=== PATIENT | male | born 1945 | race Caucasian/White ===

== ENCOUNTER 2016-07-30 13:40 | Outpatient (CLI) | END 2016-07-30 13:41 | disposition home or self-care (01) ==

== ENCOUNTER 2016-08-19 | Outpatient (CLI) | payer MEDICARE, OTHER | END 2016-08-19 04:57 | disposition EMS.NT ==

== ENCOUNTER 2016-11-23 18:00 | Outpatient (CLI) | payer MEDICARE, OTHER | END 2016-11-23 18:01 | disposition critical access hospital (66) | DX: R06.00 Dyspnea, unspecified (principal); R05 Cough | CPT/HCPCS: A0425; A0427 ==

== ENCOUNTER 2016-11-23 18:12 | Inpatient (IN) | payer MEDICARE, OTHER ==
[2016-11-23] MEDS ORDERED: ALBUTEROL NEB 2.5 MG/3 ML INH STA (18:55)
[2016-11-23] MEDS ORDERED: ALBUTEROL NEB 2.5 MG/3 ML INH ONE (19:12)
[2016-11-23] MEDS ORDERED: cefTRIAXone 2 GM in SODIUM CHLORIDE 0.9% MINIBAG 100 ML IV STA (20:19)
[2016-11-23] MEDS ORDERED: AZITHROMYCIN INJ 500 MG in SODIUM CHLORIDE 0.9% 250 ML IV STA (20:19)
[2016-11-23] MEDS ORDERED: cefTRIAXone 2 GM VIAL ONE (20:22)
[2016-11-23] MEDS ORDERED: ONDANSETRON 4 MG/2 ML VIAL IVP PRN (20:48)
[2016-11-23] MEDS ORDERED: oxyCODONE 5 MG TABLET PO PRN ×2 (20:48)
[2016-11-23] MEDS ORDERED: SODIUM CHLORIDE FLUSH 0.9% 10 ML SYRINGE IVP PRN (20:48)
[2016-11-23] MEDS ORDERED: ZOLPIDEM 5 MG TABLET PO PRN (20:48)
[2016-11-23] MEDS ORDERED: ACETAMINOPHEN 325 MG TABLET PO PRN (20:48)
[2016-11-23] MEDS ORDERED: TORSEMIDE 20 MG TABLET PO SCH (21:00)
[2016-11-23] MEDS ORDERED: INSULIN GLARGINE 300 UNIT/3 ML PEN SUBQ SCH (21:00)
[2016-11-23] MEDS: SODIUM CHLORIDE 0.9% 1,000 ML IV SCH (22:11)
[2016-11-23] MEDS: methylPREDNISolone SUCCINATE 40 MG/ML VIAL IVP SCH (22:12)
[2016-11-23] MEDS: INSULIN ASPART 300 UNIT/3 ML PEN SUBQ SCH (22:13)
[2016-11-23] MEDS: SODIUM CHLORIDE FLUSH 0.9% 10 ML SYRINGE IVP SCH (22:15)
[2016-11-23] MEDS: IPRATROPIUM/ALBUTEROL 3 ML NEB INH SCH (22:22)
[2016-11-24] MEDS: methylPREDNISolone SUCCINATE 40 MG/ML VIAL IVP SCH ×3 (06:24→22:23)
[2016-11-24] MEDS: PANTOPRAZOLE 40 MG TABLET PO SCH (06:24)
[2016-11-24] MEDS: SODIUM CHLORIDE FLUSH 0.9% 10 ML SYRINGE IVP SCH ×3 (06:25→21:44)
[2016-11-24] MEDS: SODIUM CHLORIDE 0.9% 1,000 ML IV SCH ×2 (06:32→16:42)
[2016-11-24] MEDS: IPRATROPIUM/ALBUTEROL 3 ML NEB INH SCH ×4 (07:48→19:30)
[2016-11-24] MEDS: INSULIN ASPART 300 UNIT/3 ML PEN SUBQ SCH ×4 (08:37→21:51)
[2016-11-24] MEDS: CHOLECALCIFEROL 1,000 UNIT TABLET PO SCH (09:38)
[2016-11-24] MEDS: ENOXAPARIN 40 MG/0.4 ML SYRINGE SUBQ SCH (09:38)
[2016-11-24] MEDS: PARoxetine 10 MG TABLET PO SCH (09:38)
[2016-11-24] MEDS: MONTELUKAST 10 MG TABLET PO SCH (09:38)
[2016-11-24] MEDS: MULTIVITAMIN TABLET PO SCH (09:38)
[2016-11-24] MEDS: amLODIPine 5 MG TABLET PO SCH (09:38)
[2016-11-24] MEDS: POLYETHYLENE GLYCOL 3350 17 GM PACKET PO SCH (09:38)
[2016-11-24] MEDS: ASPIRIN EC 81 MG TABLET PO SCH (09:38)
[2016-11-24] MEDS: FINASTERIDE 5 MG TABLET PO SCH (09:38)
[2016-11-24] MEDS: FERROUS SULFATE 325 MG TABLET PO SCH (09:38)
[2016-11-24] MEDS: SACCHAROMYCES BOULARDII 250 MG CAPSULE PO SCH ×2 (09:38→16:42)
[2016-11-24] MEDS ORDERED: MIN OIL/DIMETHICON/COCONUT OIL 92 GM TUBE TOP ONE (14:06)
[2016-11-24] MEDS: MIN OIL/DIMETHICON/COCONUT OIL 92 GM TUBE TOP SCH ×2 (16:32→21:40)
[2016-11-24] MEDS: AZITHROMYCIN INJ 500 MG in SODIUM CHLORIDE 0.9% 250 ML IV SCH (20:12)
[2016-11-24] MEDS ORDERED: INSULIN GLARGINE 300 UNIT/3 ML PEN SUBQ SCH (21:00)
[2016-11-24] MEDS: cefTRIAXone 2 GM in SODIUM CHLORIDE 0.9% MINIBAG 100 ML IV SCH (21:39)
[2016-11-24] MEDS ORDERED: INSULIN ASPART 300 UNIT/3 ML PEN SUBQ SCH (22:00)
[2016-11-25] MEDS: SODIUM CHLORIDE 0.9% 1,000 ML IV SCH ×2 (04:03→14:34)
[2016-11-25] MEDS: methylPREDNISolone SUCCINATE 40 MG/ML VIAL IVP SCH ×3 (06:33→21:59)
[2016-11-25] MEDS: PANTOPRAZOLE 40 MG TABLET PO SCH (06:33)
[2016-11-25] MEDS: SODIUM CHLORIDE FLUSH 0.9% 10 ML SYRINGE IVP SCH ×3 (06:34→21:36)
[2016-11-25] MEDS: IPRATROPIUM/ALBUTEROL 3 ML NEB INH PRN ×4 (07:34→21:05)
[2016-11-25] MEDS: INSULIN ASPART 300 UNIT/3 ML PEN SUBQ SCH ×5 (08:22→22:10)
[2016-11-25] MEDS: ASPIRIN EC 81 MG TABLET PO SCH (10:27)
[2016-11-25] MEDS: POLYETHYLENE GLYCOL 3350 17 GM PACKET PO SCH (10:27)
[2016-11-25] MEDS: SACCHAROMYCES BOULARDII 250 MG CAPSULE PO SCH ×2 (10:27→17:06)
[2016-11-25] MEDS: PARoxetine 10 MG TABLET PO SCH (10:27)
[2016-11-25] MEDS: FERROUS SULFATE 325 MG TABLET PO SCH (10:33)
[2016-11-25] MEDS: CHOLECALCIFEROL 1,000 UNIT TABLET PO SCH (10:33)
[2016-11-25] MEDS: ENOXAPARIN 40 MG/0.4 ML SYRINGE SUBQ SCH (10:33)
[2016-11-25] MEDS: FINASTERIDE 5 MG TABLET PO SCH (10:33)
[2016-11-25] MEDS: amLODIPine 5 MG TABLET PO SCH (10:34)
[2016-11-25] MEDS: MONTELUKAST 10 MG TABLET PO SCH (10:34)
[2016-11-25] MEDS: MULTIVITAMIN TABLET PO SCH (10:36)
[2016-11-25] MEDS: MIN OIL/DIMETHICON/COCONUT OIL 92 GM TUBE TOP SCH ×2 (10:36→22:00)
[2016-11-25] MEDS: INSULIN GLARGINE 300 UNIT/3 ML PEN SUBQ SCH (17:04)
[2016-11-25] MEDS: AZITHROMYCIN INJ 500 MG in SODIUM CHLORIDE 0.9% 250 ML IV SCH (20:32)
[2016-11-25] MEDS: cefTRIAXone 2 GM in SODIUM CHLORIDE 0.9% MINIBAG 100 ML IV SCH (21:59)
[2016-11-26] MEDS: SODIUM CHLORIDE 0.9% 1,000 ML IV SCH ×3 (02:13→21:30)
[2016-11-26] MEDS: methylPREDNISolone SUCCINATE 40 MG/ML VIAL IVP SCH ×3 (06:18→21:22)
[2016-11-26] MEDS: PANTOPRAZOLE 40 MG TABLET PO SCH (06:18)
[2016-11-26] MEDS: SODIUM CHLORIDE FLUSH 0.9% 10 ML SYRINGE IVP SCH ×3 (06:21→20:10)
[2016-11-26] MEDS: IPRATROPIUM/ALBUTEROL 3 ML NEB INH PRN (07:15)
[2016-11-26] MEDS ORDERED: INSULIN ASPART 300 UNIT/3 ML PEN SUBQ SCH (08:00)
[2016-11-26] MEDS: INSULIN ASPART 300 UNIT/3 ML PEN SUBQ SCH ×7 (08:14→21:40)
[2016-11-26] MEDS: PARoxetine 10 MG TABLET PO SCH (09:03)
[2016-11-26] MEDS: MONTELUKAST 10 MG TABLET PO SCH (09:04)
[2016-11-26] MEDS: FINASTERIDE 5 MG TABLET PO SCH (09:04)
[2016-11-26] MEDS: MULTIVITAMIN TABLET PO SCH (09:04)
[2016-11-26] MEDS: FERROUS SULFATE 325 MG TABLET PO SCH (09:04)
[2016-11-26] MEDS: SACCHAROMYCES BOULARDII 250 MG CAPSULE PO SCH ×2 (09:04→17:32)
[2016-11-26] MEDS: amLODIPine 5 MG TABLET PO SCH (09:05)
[2016-11-26] MEDS: POLYETHYLENE GLYCOL 3350 17 GM PACKET PO SCH (09:05)
[2016-11-26] MEDS: ENOXAPARIN 40 MG/0.4 ML SYRINGE SUBQ SCH (09:05)
[2016-11-26] MEDS: ASPIRIN EC 81 MG TABLET PO SCH (09:05)
[2016-11-26] MEDS: MIN OIL/DIMETHICON/COCONUT OIL 92 GM TUBE TOP SCH ×2 (09:06→21:30)
[2016-11-26] MEDS: CHOLECALCIFEROL 1,000 UNIT TABLET PO SCH (09:07)
[2016-11-26] MEDS: AZITHROMYCIN INJ 500 MG in SODIUM CHLORIDE 0.9% 250 ML IV SCH (19:46)
[2016-11-26] MEDS: cefTRIAXone 2 GM in SODIUM CHLORIDE 0.9% MINIBAG 100 ML IV SCH (21:22)
[2016-11-26] MEDS: INSULIN GLARGINE 300 UNIT/3 ML PEN SUBQ SCH (21:39)
[2016-11-27] MEDS ORDERED: CARBOXYMETHYLCELLULOSE OPHTH DROPS EACHEYE PRN (04:12)
[2016-11-27] MEDS ORDERED: CARBOXYMETHYLCELLULOSE OPHTH DROPS ONE (04:14)
[2016-11-27] MEDS: SODIUM CHLORIDE FLUSH 0.9% 10 ML SYRINGE IVP SCH ×3 (05:35→22:08)
[2016-11-27] MEDS: methylPREDNISolone SUCCINATE 40 MG/ML VIAL IVP SCH ×3 (06:14→22:08)
[2016-11-27] MEDS: PANTOPRAZOLE 40 MG TABLET PO SCH (06:16)
[2016-11-27] MEDS: IPRATROPIUM/ALBUTEROL 3 ML NEB INH PRN ×2 (08:27→17:28)
[2016-11-27] MEDS: INSULIN ASPART 300 UNIT/3 ML PEN SUBQ SCH ×7 (08:32→21:13)
[2016-11-27] MEDS: POLYETHYLENE GLYCOL 3350 17 GM PACKET PO SCH (08:33)
[2016-11-27] MEDS: ENOXAPARIN 40 MG/0.4 ML SYRINGE SUBQ SCH (08:33)
[2016-11-27] MEDS: FINASTERIDE 5 MG TABLET PO SCH (08:34)
[2016-11-27] MEDS: MULTIVITAMIN TABLET PO SCH (08:34)
[2016-11-27] MEDS: amLODIPine 5 MG TABLET PO SCH (08:34)
[2016-11-27] MEDS: PARoxetine 10 MG TABLET PO SCH (08:34)
[2016-11-27] MEDS: MONTELUKAST 10 MG TABLET PO SCH (08:34)
[2016-11-27] MEDS: SACCHAROMYCES BOULARDII 250 MG CAPSULE PO SCH ×2 (08:34→16:43)
[2016-11-27] MEDS: CHOLECALCIFEROL 1,000 UNIT TABLET PO SCH (08:34)
[2016-11-27] MEDS: FERROUS SULFATE 325 MG TABLET PO SCH (08:34)
[2016-11-27] MEDS: ASPIRIN EC 81 MG TABLET PO SCH (08:34)
[2016-11-27] MEDS: SODIUM CHLORIDE 0.9% 1,000 ML IV SCH ×2 (08:44→17:16)
[2016-11-27] MEDS: MIN OIL/DIMETHICON/COCONUT OIL 92 GM TUBE TOP SCH ×2 (13:26→13:40)
[2016-11-27] MEDS: AZITHROMYCIN INJ 500 MG in SODIUM CHLORIDE 0.9% 250 ML IV SCH (19:55)
[2016-11-27] MEDS: cefTRIAXone 2 GM in SODIUM CHLORIDE 0.9% MINIBAG 100 ML IV SCH (21:02)
[2016-11-27] MEDS: INSULIN GLARGINE 300 UNIT/3 ML PEN SUBQ SCH (21:12)
[2016-11-28] MEDS: SODIUM CHLORIDE 0.9% 1,000 ML IV SCH (00:32)
[2016-11-28] MEDS ORDERED: AMPICILLIN 250 MG CAPSULE PO SCH (01:00)
[2016-11-28] MEDS: PANTOPRAZOLE 40 MG TABLET PO SCH (06:51)
[2016-11-28] MEDS: CLINDAMYCIN 150 MG CAPSULE PO SCH ×2 (06:51→11:58)
[2016-11-28] MEDS: SODIUM CHLORIDE FLUSH 0.9% 10 ML SYRINGE IVP SCH (06:54)
[2016-11-28] MEDS ORDERED: predniSONE 20 MG TABLET PO SCH (08:00)
[2016-11-28] MEDS: INSULIN ASPART 300 UNIT/3 ML PEN SUBQ SCH ×4 (08:16→11:59)
[2016-11-28] MEDS: ASPIRIN EC 81 MG TABLET PO SCH (08:17)
[2016-11-28] MEDS: MULTIVITAMIN TABLET PO SCH (08:17)
[2016-11-28] MEDS: ENOXAPARIN 40 MG/0.4 ML SYRINGE SUBQ SCH (08:17)
[2016-11-28] MEDS: FINASTERIDE 5 MG TABLET PO SCH (08:17)
[2016-11-28] MEDS: SACCHAROMYCES BOULARDII 250 MG CAPSULE PO SCH (08:17)
[2016-11-28] MEDS: PARoxetine 10 MG TABLET PO SCH (08:18)
[2016-11-28] MEDS: CHOLECALCIFEROL 1,000 UNIT TABLET PO SCH (08:18)
[2016-11-28] MEDS: FERROUS SULFATE 325 MG TABLET PO SCH (08:18)
[2016-11-28] MEDS: MONTELUKAST 10 MG TABLET PO SCH (08:18)
[2016-11-28] MEDS: POLYETHYLENE GLYCOL 3350 17 GM PACKET PO SCH (08:18)
[2016-11-28] MEDS: amLODIPine 5 MG TABLET PO SCH (08:18)
[2016-11-28] MEDS ORDERED: SENNA 8.6 MG TABLET PO ONE (08:30)
[2016-11-28] MEDS ORDERED: DOCUSATE SODIUM 250 MG CAPSULE PO ONE (08:30)
[2016-11-28] MEDS: MIN OIL/DIMETHICON/COCONUT OIL 92 GM TUBE TOP SCH (11:42)
== END 2016-11-28 14:45 | DRG 871 ==
DX: A40.8 Other streptococcal sepsis (principal); J18.9 Pneumonia, unspecified organism; E11.9 Type 2 diabetes mellitus without complications; J96.21 Acute and chronic respiratory failure with hypoxia; J44.0 Chronic obstructive pulmonary disease with (acute) lower respiratory infection; J44.1 Chronic obstructive pulmonary disease with (acute) exacerbation; E66.9 Obesity, unspecified; F03.90 Unspecified dementia, unspecified severity, without behavioral disturbance, psychotic disturbance, mood disturbance, and anxiety; Z68.42 Body mass index [BMI] 45.0-49.9, adult; I10 Essential (primary) hypertension; E11.22 Type 2 diabetes mellitus with diabetic chronic kidney disease; E66.01 Morbid (severe) obesity due to excess calories; G31.83 Neurocognitive disorder with Lewy bodies; F02.80 Dementia in other diseases classified elsewhere, unspecified severity, without behavioral disturbance, psychotic disturbance, mood disturbance, and anxiety; N18.3 Chronic kidney disease, stage 3 (moderate); E86.0 Dehydration; G47.33 Obstructive sleep apnea (adult) (pediatric); K02.9 Dental caries, unspecified; K05.10 Chronic gingivitis, plaque induced; I25.10 Atherosclerotic heart disease of native coronary artery without angina pectoris; K21.9 Gastro-esophageal reflux disease without esophagitis; F41.8 Other specified anxiety disorders; E78.5 Hyperlipidemia, unspecified; D50.9 Iron deficiency anemia, unspecified; I87.2 Venous insufficiency (chronic) (peripheral); Z91.19 Patient's noncompliance with other medical treatment and regimen; Z79.82 Long term (current) use of aspirin; Z79.4 Long term (current) use of insulin; Z87.891 Personal history of nicotine dependence

== ENCOUNTER 2017-03-15 13:29 | Outpatient (CLI) | payer MEDICARE, OTHER ==
[2017-03-15 19:21] LABS: HEMOGLOBIN A1C 0.58 g/dL
[2017-03-15 19:30] LABS: ALBUMIN/GLOBULIN RATIO 1.5 (1.0-2.2); BILIRUBIN,TOTAL 0.8 mg/dL (0.2-1.0); CALCIUM 9.7 mg/dL (8.5-10.3); CREATININE 1.8 mg/dL (0.6-1.2); TOTAL PROTEIN 7.4 g/dL (6.7-8.2)
== END 2017-03-15 13:30 | disposition home or self-care (01) ==
LOC: LAB.WCP 13:29
PROVIDERS: ATTEND Family Medicine
DX: E11.9 Type 2 diabetes mellitus without complications (principal); F03.90 Unspecified dementia, unspecified severity, without behavioral disturbance, psychotic disturbance, mood disturbance, and anxiety; J45.909 Unspecified asthma, uncomplicated
CPT/HCPCS: 36415; 80053; 83036

== ENCOUNTER 2017-03-27 11:57 | Outpatient (CLI) | payer MEDICARE, OTHER | END 2017-03-27 11:58 | disposition EMS.NT | LOC: EMS 11:57 | PROVIDERS: ATTEND Surgery | DX: M25.512 Pain in left shoulder (principal); W01.0XXA Fall on same level from slipping, tripping and stumbling without subsequent striking against object, initial encounter; Y92.009 Unspecified place in unspecified non-institutional (private) residence as the place of occurrence of the external cause ==

== ENCOUNTER 2017-09-20 08:52 | Outpatient (CLI) | payer MEDICARE, OTHER | END 2017-09-20 08:53 | disposition EMS.NT | LOC: EMS 08:52 | PROVIDERS: ATTEND Surgery | DX: Z03.89 Encounter for observation for other suspected diseases and conditions ruled out (principal); W18.39XA Other fall on same level, initial encounter; Y92.009 Unspecified place in unspecified non-institutional (private) residence as the place of occurrence of the external cause ==

== ENCOUNTER 2017-10-24 13:34 | Outpatient (CLI) | payer MEDICARE, OTHER | END 2017-10-24 13:35 | disposition EMS.NT | LOC: EMS 13:34 | PROVIDERS: ATTEND Surgery | DX: Z03.89 Encounter for observation for other suspected diseases and conditions ruled out (principal) ==

== ENCOUNTER 2018-04-01 21:51 | Outpatient (CLI) | payer MEDICARE, OTHER | END 2018-04-01 21:52 | disposition critical access hospital (66) | LOC: EMS 21:51 | PROVIDERS: ATTEND Surgery | DX: R06.02 Shortness of breath (principal) | CPT/HCPCS: A0425; A0427 ==

== ENCOUNTER 2018-04-01 22:06 | Inpatient (IN) | payer MEDICARE, OTHER ==
[2018-04-01] MEDS ORDERED: IPRATROPIUM/ALBUTEROL 3 ML NEB INH STA (22:14)
[2018-04-01] MEDS ORDERED: CEFEPIME 2 GM in SODIUM CHLORIDE 0.9% MINIBAG 100 ML IV STA (22:23)
[2018-04-01] MEDS ORDERED: SODIUM CHLORIDE 0.9% 1,000 ML IV ONE (22:23)
[2018-04-01 22:33] LABS: BASOPHILS % (AUTO) 0.2 %; EOSINOPHILS % (AUTO) 0.5 %; HGB - HEMOGLOBIN 11.8 g/dL (14.0-18.0); LYMPHOCYTES # (AUTO) 1.6 10^3/uL (1.5-3.5); MEAN CORPUSCULAR HEMOGLOBIN 30.7 pg (27.0-31.0); MEAN CORPUSCULAR HGB CONC 33.1 g/dL (32.0-36.0); MEAN CORPUSCULAR VOLUME 92.7 fL (80.0-94.0); MEAN PLATELET VOLUME 7.9 fL (7.4-11.4); MONOCYTES # (AUTO) 0.7 10^3/uL (0.0-1.0); MONOCYTES % (AUTO) 7.7 %; NEUTROPHILS # (AUTO) 6.7 10^3/uL (1.5-6.6); NEUTROPHILS % (AUTO) 73.6 %; PLT - PLATELET COUNT 217 10^3/uL (130-450); RED BLOOD COUNT 3.85 10^6/uL (4.70-6.10); RED CELL DISTRIBUTION WIDTH 14.4 % (12.0-15.0); WHITE BLOOD COUNT 9.1 x10^3/uL (4.8-10.8)
[2018-04-01] MEDS ORDERED: LORazepam 2 MG/ML VIAL IVP STA (22:33)
[2018-04-01 22:46] LABS: ALBUMIN 3.7 g/dL (3.2-5.5); ALBUMIN/GLOBULIN RATIO 1.1 (1.0-2.2); BILIRUBIN,TOTAL 0.5 mg/dL (0.2-1.0); CALCIUM 9.1 mg/dL (8.5-10.3); CREATININE 1.9 mg/dL (0.6-1.2); TOTAL PROTEIN 7.2 g/dL (6.7-8.2)
--- NOTE | 2018-04-01 23:25 | ED Physician Documentation ---
History of Present Illness - Stated complaint Stated Complaint: SOA - Chief complaint Chief Complaint: Resp - History obtained from History obtained from: Patient, Family - Additonal information Additional information: 72-year-old male was brought to the emergency department for increasing shortness of breath over the past several days. The patient has a history of COPD and his breathing has progressively worsened. The patient has been using his home treatments with minimal success. The patient had a DuoNeb with EMS and some improvement. No reports of fever, cough, chest pain or abdominal pain. The patient also has a history of recurrent cellulitis and the patient's reports increased redness and swelling of the right lower extremity. The majority of the history was obtained from the patient's . The patient's reports increased confusion as the shortness of breath has worsened. The patient has also been more agitated per the . Symptoms are described as severe. No specific triggering factor. Review of Systems Constitutional: reports: Chills, Fatigue Eyes: denies: Discharge Ears: denies: Ear pain Nose: denies: Congestion Throat: denies: Sore throat Cardiac: denies: Chest pain / pressure Respiratory: reports: Dyspnea, Cough, Wheezing GI: denies: Abdominal Pain : denies: Dysuria Skin: reports: Lesions Musculoskeletal: denies: Back pain Neurologic: reports: Altered mental status PD PAST MEDICAL HISTORY - Past Medical History Cardiovascular: Hypertension, Coronary artery disease Respiratory: Asthma, COPD, Shortness of breath, Sleep apnea Endocrine/Autoimmune: Type 2 diabetes : Benign prostate hypertrophy, Incontinence HEENT: None Psych: Depression, Anxiety, Claustrophobia Musculoskeletal: Osteoarthritis Derm: Psoriasis - Past Surgical History Past Surgical History: Yes General: Appendectomy, Hiatal hernia repair Ortho: Other - Present Medications Home Medications: Ambulatory Orders Medication Instructions Recorded Confirmed Aspirin [Aspirin EC] 81 mg PO DAILY 11/18/13 11/24/16 Cholecalciferol (Vitamin D3) 1,000 unit PO DAILY 11/18/13 11/24/16 [Vitamin D3] Ferrous Sulfate [Iron] 325 mg PO BID 11/18/13 11/24/16 Finasteride [Proscar] 5 mg PO DAILY 11/18/13 11/24/16 Montelukast Sodium [Singulair] 10 mg PO DAILY 11/18/13 11/24/16 Multivitamin [Multi-Vitamin Daily] 1 each PO DAILY 11/18/13 11/24/16 Omeprazole [PriLOSEC] 40 mg PO DAILY 11/18/13 11/24/16 Paroxetine HCl [Paxil] 20 mg PO DAILY 11/18/13 11/24/16 Torsemide [Demadex] 60 mg PO BID 11/18/13 11/24/16 glipiZIDE [Glucotrol] 5 mg PO 0730 11/18/13 11/24/16 amLODIPine [Norvasc] 5 mg PO DAILY 01/04/16 11/24/16 Donepezil HCl 5 mg PO DAILY 11/24/16 11/24/16 Fenofibrate 160 mg PO DAILY 11/24/16 11/24/16 Potassium Chloride 20 meq PO DAILY 11/24/16 11/24/16 Tamsulosin HCl 0.8 mg PO DAILY 11/24/16 11/24/16 Acetaminophen [Tylenol] 650 mg PO Q4HR PRN #0 tablet 11/28/16 Clindamycin [Cleocin] 300 mg PO Q6HR #36 capsule 11/28/16 Enoxaparin [Lovenox] 40 mg SUBQ DAILY syringe 11/28/16 Hydrocodone/Acetaminophen 1 each PO Q6H PRN #30 tablet 11/28/16 [Hydrocodon-Acetaminophen 5-325] Insulin Aspart [NovoLOG] 2 - 10 unit SUBQ 11/28/16 0800,1200,1700,2100 pen Insulin Glargine [Lantus Solostar] 16 unit SUBQ QPM pen 11/28/16 Ipratropium/Albuterol [Duoneb] 3 ml INH RTQID PRN #0 neb 11/28/16 Polyethylene Glycol 3350 [Miralax] 17 gm PO DAILY packet 11/28/16 Saccharomyces Boulardii [Florastor] 250 mg PO BID #60 capsule 11/28/16 predniSONE [Deltasone] 10 mg PO DAILYWM #1 tablet 11/28/16 - Allergies Allergies/Adverse Reactions: Allergies Allergy/AdvReac Type Severity Reaction Status Date / Time bacitracin Allergy Severe Unknown Verified 04/01/18 22:08 [From Neosporin ([id number])] bacitracin zinc * Allergy Severe Unknown Verified 04/01/18 22:08 [From Neosporin ([id number])] latex Allergy Severe Unknown Verified 04/01/18 22:08 lovastatin Allergy Severe Unknown Verified 04/01/18 22:08 neomycin sulfate * Allergy Severe Unknown Verified 04/01/18 22:08 [From Neosporin ([id number])] polymyxin B Allergy Severe Unknown Verified 04/01/18 22:08 [From Neosporin ([id number])] pravastatin sodium * Allergy Severe Unknown Verified 04/01/18 22:08 [From Pravachol] trazodone Allergy Unknown Verified 04/01/18 22:08 - Social History Does the pt smoke?: No Smoking Status: Never smoker Does the pt drink ETOH?: No Does the pt have substance abuse?: No - Immunizations Immunizations are current?: Yes - POLST Patient has POLST: Yes PD ED PE NORMAL - General General: Other (72-year-old male who appears to be dyspneic and appears acutely ill. The patient also appears significantly decompensated and chronically ill.) - HEENT HEENT: Atraumatic, PERRL, Other (Poor dental hygiene) - Cardiac Cardiac: Other (Tachycardia) - Respiratory Respiratory: Other (The patient has increased respiratory rate and poor aeration bilaterally) - Abdomen Abdomen: Soft, Non tender - Derm Derm: Other (The patient has significant erythematous changes and signs of cellulitis of the right lower extremity which extends up into the thigh. There is no crepitus or signs of abscess) - Extremities Extremities: No: No edema (The patient has edema of the right lower extremity with cellulitic changes) - Neuro Neuro: Other (The patient's alert, follows commands, there appears to be no gross focal neurologic changes. The patient is confused and agitated) - Psych Psych: Other (Agitated) Results - Vitals Vitals: Vital Signs - 24 hr 04/01/18 04/01/18 04/01/18 22:09 22:21 23:04 Temperature 36.9 C Heart Rate 90 114 H 115 H Respiratory 28 H 24 24 Rate Blood Pressure 105/91 H 136/109 H O2 Saturation 100 92 04/01/18 04/01/18 23:22 23:51 Temperature Heart Rate 132 H 133 H Respiratory Rate Blood Pressure O2 Saturation Oxygen O2 Source [With Activity] Room air O2 Source [Without Activity] Room air O2 Source BIPAP - Labs Labs: Laboratory Tests 04/01/18 04/01/18 04/01/18 22:24 22:24 22:24 WBC 9.1 RBC 3.85 L Hgb 11.8 L Hct 35.8 L MCV 92.7 MCH 30.7 MCHC 33.1 RDW 14.4 Plt Count 217 MPV 7.9 Neut # (Auto) 6.7 H Lymph # (Auto) 1.6 Gilliam # (Auto) 0.7 Eos # (Auto) 0.0 Baso # (Auto) 0.0 Absolute Nucleated RBC 0.00 Nucleated RBC % 0.0 Sodium 139 Potassium 3.4 L Chloride 98 L Carbon Dioxide 31 Anion Gap 10.0 BUN 46 H Creatinine 1.9 H Estimated GFR (MDRD) 35 L Glucose 190 H Lactic Acid Calcium 9.1 Total Bilirubin 0.5 AST 32 ALT 21 Alkaline Phosphatase 36 L Troponin I < 0.04 B-Natriuretic Peptide Total Protein 7.2 Albumin 3.7 Globulin 3.5 Albumin/Globulin Ratio 1.1 Lipase 45 04/01/18 04/01/18 22:24 22:24 WBC RBC Hgb Hct MCV MCH MCHC RDW Plt Count MPV Neut # (Auto) Lymph # (Auto) Gilliam # (Auto) Eos # (Auto) Baso # (Auto) Absolute Nucleated RBC Nucleated RBC % Sodium Potassium Chloride Carbon Dioxide Anion Gap BUN Creatinine Estimated GFR (MDRD) Glucose Lactic Acid 0.9 Calcium Total Bilirubin AST ALT Alkaline Phosphatase Troponin I B-Natriuretic Peptide 287 H Total Protein Albumin Globulin Albumin/Globulin Ratio Lipase - Rads (name of study) CXR Radiology: Final report received (Hypoventilatory single view chest with cardiomegaly but without definite acute process. ) PD MEDICAL DECISION MAKING - ED course ED course: The patient was started on BiPAP for his respiratory distress, the patient was treated with IV fluids and IV antibiotics for the lower leg infection. The patient will require admission to the hospital for ongoing management of his COPD exacerbation and acute cellulitis. The patient's kidney function is poor, and the patient is not stable at this time for a CT angiogram of his chest to rule out PE so a dose of Lovenox was given in the emergency department. The findings and plan were discussed with the patient and his . The patient's understands and agrees to the plan. The case was discussed with the hospitalist Dr. Shaffer Who accepts the patient onto her service - Sepsis Event Vital Signs: Vital Signs - 24 hr 04/01/18 04/01/18 04/01/18 22:09 22:21 23:04 Temperature 36.9 C Heart Rate 90 114 H 115 H Respiratory 28 H 24 24 Rate Blood Pressure 105/91 H 136/109 H O2 Saturation 100 92 04/01/18 04/01/18 23:22 23:51 Temperature Heart Rate 132 H 133 H Respiratory Rate Blood Pressure O2 Saturation Oxygen O2 Source [With Activity] Room air O2 Source [Without Activity] Room air O2 Source BIPAP Departure - Departure Disposition: [address] [facility] DC/Xfer Clinical Impression: Respiratory distress, COPD exacerbation, Confusion Cellulitis Qualifiers: Site of cellulitis: unspecified site Qualified Code(s): L03.90 - Cellulitis, unspecified Condition: Fair
[2018-04-01] MEDS ORDERED: METHYLPREDNISOLONE SUCCINATE IV STA (23:39)
[2018-04-01] MEDS ORDERED: SODIUM CHLORIDE 0.9% IV STA (23:39)
--- NOTE | 2018-04-01 23:40 | XRAY Report ---
Reason: sob Procedure Date: 04/01/2018 Accession Number: [id number] / [id number] Procedure: XR - Chest 1 View X-Ray CPT Code: 28209 FULL RESULT: EXAM: CHEST RADIOGRAPHY EXAM DATE: 04/01/2018 11:11 PM. CLINICAL HISTORY: Short of breath. COMPARISON: CHEST 2 VIEW PA/LAT 11/24/2016. TECHNIQUE: 1 view. FINDINGS: Lungs/Pleura: Low volumes with chronic right hemidiaphragm elevation. No definite pneumonia or edema. No gross pneumothorax or large effusion. Mediastinum: Mild cardiomegaly. No mediastinal shift. Other: None. IMPRESSION: Hypoventilatory single view chest with cardiomegaly but without definite acute process. RADIA
[2018-04-01] MEDS ORDERED: ENOXAPARIN 100 MG/ML SYRINGE SUBQ STA (23:50)
[2018-04-02] MEDS ORDERED: methylPREDNISolone SUCCINATE 125 MG/2 ML VIAL IVP STA (00:12)
[2018-04-02] MEDS ORDERED: PROCHLORPERAZINE 10 MG/2 ML VIAL IVP PRN (00:15)
[2018-04-02] MEDS ORDERED: ACETAMINOPHEN 325 MG TABLET PO PRN (00:15)
[2018-04-02] MEDS ORDERED: HYDROcod/ACETAM 5/325 MG TABLET PO PRN (00:27)
[2018-04-02] MEDS ORDERED: LIDOCAINE 2% URO-JET 5 ML SYRINGE UR STA (00:36)
[2018-04-02] MEDS ORDERED: LEVALBUTEROL 1.25 MG/3 ML NEB INH STA (00:43)
[2018-04-02] MEDS ORDERED: MORPHINE 10 MG/ML VIAL IVP ONE (00:51)
[2018-04-02] MEDS ORDERED: MORPHINE 10 MG/ML VIAL IVP PRN (00:52)
[2018-04-02] MEDS: SODIUM CHLORIDE FLUSH 0.9% 10 ML SYRINGE IVP SCH ×3 (01:55→17:02)
[2018-04-02] MEDS ORDERED: VANCOMYCIN 1 GM VIAL ONE ×2 (01:58→02:03)
[2018-04-02] MEDS ORDERED: VANCOMYCIN INJ 2 GM in SODIUM CHLORIDE 0.9% 500 ML IV SCH (02:00)
[2018-04-02] MEDS ORDERED: SODIUM CHLORIDE 0.9% 500 ML IV ONE (02:04)
[2018-04-02] MEDS: ACETAMINOPHEN 1,000 MG/100 ML 100 ML IV PRN (02:04)
[2018-04-02] MEDS: MORPHINE 10 MG/ML VIAL IVP PRN ×2 (02:05→20:28)
[2018-04-02 02:26] LABS: BILIRUBIN,URINE NEGATIVE (NEGATIVE); GLUCOSE, URINE (UA) NEGATIVE (NEGATIVE); KETONES,URINE (UA) NEGATIVE (NEGATIVE); LEUKOCYTE ESTERASE, URINE NEGATIVE (NEGATIVE); NITRITE,URINE NEGATIVE (NEGATIVE); OCCULT BLOOD,URINE TRACE-INTA (NEGATIVE); PH,URINE 5.5 PH (5.0-7.5); PROTEIN,URINE NEGATIVE (NEGATIVE); UROBILINOGEN,URINE 0.2 (NORMAL) E.U./dL (NORMAL)
[2018-04-02 02:30] LABS: BACTERIA,URINE None Seen /HPF (None Seen); CLARITY,URINE CLEAR (CLEAR); SQUAMOUS EPITHELIAL CELL,UR NONE SEEN (<= Few)
[2018-04-02 02:31] LABS: RBC,URINE 0-5 /HPF (0-5)
[2018-04-02 02:34] LABS: EPITHELIAL CELLS,UR None Seen /HPF (<= Few)
[2018-04-02] MEDS: ceFAZolin 1 GM in SODIUM CHLORIDE 0.9% MINIBAG 100 ML IV SCH ×3 (03:00→18:02)
[2018-04-02 03:13] LABS: PT - PROTHROMBIN TIME 11.7 secs (9.9-12.6)
--- NOTE | 2018-04-02 03:33 | HISTORY & PHYSICAL EXAMINATION ---
DATE OF SERVICE: 04/02/2018 Physician: Josselyn Shaffer MD HISTORY OF PRESENT ILLNESS: This is a 72-year-old, white male with a history of obesity, diabetes on insulin, hypertension, sleep apnea that has been untreated since diagnosed about 2 years ago, COPD with prior exacerbations with pneumonitis requiring ICU hospitalization, recurrent cellulitis of the legs, venous stasis changes, dementia. The patient presents with a 2-3 day history of worsening confusion, not being cooperative with taking his meals and pills, which the administers to him since he lives mostly in a recliner chair, two days of being more short of breath, so the brought him to the emergency room. He was noted to be confused, moving all extremities, tachypneic with respiratory rate of 32 and desaturating under 90%, and he received supplemental oxygen, requiring BiPAP started in the ER. He also received IV steroids and nebulizers several times. The patient still sounds tight with poor air movement, and is being admitted for respiratory distress, as well as cellulitis. PAST MEDICAL HISTORY: Diabetes on insulin, hypertension, morbid obesity, sleep apnea that is untreated as he does not tolerate CPAP, prior leg cellulitis, COPD , dementia. ALLERGIES 1. BACITRACIN. 2. NEOSPORIN. 3. LOVASTATIN. 4. LATEX. 5. NEOMYCIN. 6. POLYMYXIN 7. PRAVASTATIN. 8. TRAZODONE. MEDICATIONS AT HOME 1. Prednisone 10 mg daily. 2. Glucotrol 5 mg daily. 3. Amlodipine 5 mg daily. 4. Demadex 60 mg b.i.d. 5. Tamsulosin 0.8 mg daily. 6. Florastor 250 mg b.i.d. 7. Oral clindamycin. 8. Potassium chloride 20 mEq daily. 9. MiraLax 17 grams daily. 10. Paxil 20 mg daily. 11. Prilosec 40 mg daily. 12. Multivitamin daily. 13. Singulair 10 mg daily. 14. DuoNeb q.i.d. p.r.n. wheezing. 15. Lantus insulin 16 units every evening and sliding scale. 16. Aspart insulin on a high scale. 17. Tylenol With Codeine p.r.n. 18. Proscar 5 mg daily. 19. Iron 325 mg b.i.d. 20. Fenofibrate 160 mg daily. 21. Donepezil 5 mg daily. 22. Vitamin D3 1000 units daily. 23. Baby aspirin daily. 24. Tylenol p.r.n. pain. FAMILY HISTORY: Heart disease, both parents of complications of this. SOCIAL HISTORY: The patient lives with his who does most of his care. The patient can walk with a walker to the bathroom and rarely comes to the dining room table for meals, he mostly eats in his recliner. He sleeps in the recliner, needing the head of bed elevated. He no longer drives. He is an ex- smoker, quit many years ago, drinks no alcohol, uses no illicit drugs. REVIEW OF SYSTEMS: The patient has had recent tremor versus shaking chills, according to the , starting yesterday and today. The patient's normal language is sentences and normal speech, but goes off on tangents or makes no sense. In the last 2 days, he has spoken gibberish. There have been no sick exposures or recent travel. The does fingerstick glucoses daily and they run approximately 118-140. This morning it was 154. A comprehensive review of systems was performed and the pertinent positives are listed, the rest are negative. PHYSICAL EXAMINATION GENERAL: Obese, white male on BiPAP. He is lethargic and appears to be sleeping, but he has a swallowing motion of his lips and occasionally is speaking in gibberish. He is opening his eyes to his only. He is intermittently shaking his upper extremities, as if he has shaking chill. He is morbidly obese. VITAL SIGNS: Blood pressure 136/109, pulse of 110 in sinus rhythm, temperature is 39.6, respiratory rate 32. HEENT: Reveals the above buccal motion. Eyes are closed. Oral mucosa appears moist. He is on a BiPAP. NECK: Obese. CHEST: Diminished air movement, but no wheezes or rales are heard. HEART: Heart sounds are distant. No audible murmurs. ABDOMEN: Obese, distended. I cannot rule out ascites or organomegaly. EXTREMITIES: there is 4+ edema to the hips. The left anterior locke has venous stasis changes. The right locke has redness and warmth from the ankle to below the right knee and, in the center of this, there is an open wound without purulence. His sacrum shows a large area that is blackened, but no open wounds over the sacrum. NEUROLOGIC: As above. LABORATORIES: Sodium 139, potassium 3.4, BUN 46, creatinine 1.9, (his baseline creatinine is 1.8), glucose 190. Lactic acid normal at 0.9. AST and ALT are normal. Troponin not detectable. BNP 287. Lipase normal. White blood count 9.1 with a left shift, hemoglobin 11.8, platelet count normal at 217. Urinalysis was obtained, but not done yet. INR was obtained, but not done yet. EKG: Sinus tachycardia at a rate of 118 with right IVCD. Chest x-ray: shows hypoventilation and cardiomegaly and no acute process. IMPRESSION/DIAGNOSES 1. Cellulitis of the right lower extremity in a diabetic. 2. Chronic obstructive pulmonary disease exacerbation with desaturations and wheezing. 3. Diabetes with fairly good control. 4. Altered mental status, which is likely from the acute infection. 6. Morbid obesity with near immobility at home. 7. Chronic kidney disease with anasarca. 8. Hypokalemia. PLAN Admit the patient to the ICU. Continue with BiPAP support and supplemental oxygen. Start nebulizer treatments around the clock and p.r.n. and IV steroids , especially to give him stress doses since he is on prednisone daily. Follow his chest x-ray daily while in the ICU. Obtain leg wound cultures and blood cultures. Start IV antibiotics, will use vancomycin and cefepime ,for diabetic cellulitis. Follow his CBC daily. N.p.o. diet currently while he is on BiPAP and gentle IV hydration for calories. Start fingersticks in an n.p.o. patient, and hypoglycemia protocol and sliding scale insulin coverage for high glucoses. Continue with his medications for BPH, dementia, hypertension and leg edema. Follow his electrolytes, BUN and creatinine daily. Cycle troponins. Obtain an Echo to evaluate LV and RV contractility and PA pressure, given the anasarca. Obtain a [facility] consult. Deep venous thrombosis prophylaxis: Lovenox. CODE STATUS: FULL CODE. This was confirmed with the , who has a POLST that we will scan into [employer]. ATTESTATION: The patient is expected to be discharged or transferred to another facility within 96 hours: Yes. TD: 04/02/2018 02:47 [facility]
[2018-04-02] MEDS: DEXTROSE 5%-0.45% NACL 1,000 ML IV SCH ×2 (04:10→21:18)
[2018-04-02 04:57] LABS: BASOPHILS % (AUTO) 0.1 %; HGB - HEMOGLOBIN 10.6 g/dL (14.0-18.0); LYMPHOCYTES # (AUTO) 0.2 10^3/uL (1.5-3.5); MEAN CORPUSCULAR HGB CONC 33.9 g/dL (32.0-36.0); MEAN CORPUSCULAR VOLUME 91.4 fL (80.0-94.0); MEAN PLATELET VOLUME 7.9 fL (7.4-11.4); MONOCYTES # (AUTO) 0.2 10^3/uL (0.0-1.0); MONOCYTES % (AUTO) 2.2 %; NEUTROPHILS # (AUTO) 9.7 10^3/uL (1.5-6.6); NEUTROPHILS % (AUTO) 95.7 %; PLT - PLATELET COUNT 193 10^3/uL (130-450); RED BLOOD COUNT 3.42 10^6/uL (4.70-6.10); RED CELL DISTRIBUTION WIDTH 14.5 % (12.0-15.0); WHITE BLOOD COUNT 10.2 x10^3/uL (4.8-10.8)
[2018-04-02 05:06] LABS: CALCIUM 8.8 mg/dL (8.5-10.3); CREATININE 1.9 mg/dL (0.6-1.2)
[2018-04-02 05:13] LABS: HB2 TOTAL 10.8 g/dL; HEMOGLOBIN A1C 0.39 g/dL; HEMOGLOBIN A1C % 5.5 % (4.6-6.2)
[2018-04-02] MEDS: methylPREDNISolone SUCCINATE 40 MG/ML VIAL IVP SCH ×3 (06:00→21:20)
[2018-04-02] MEDS: INSULIN REGULAR HUMAN 100 UNIT/1 ML 10 ML MDV SUBQ SCH ×3 (06:20→18:01)
[2018-04-02] MEDS ORDERED: IPRATROPIUM/ALBUTEROL 3 ML NEB INH SCH (07:00)
[2018-04-02 07:25] LABS: ABG PCO2 56 mmHg (34-45)
[2018-04-02 07:26] LABS: ABG HCO3 29.2 mmol/L (22.0-26.0)
[2018-04-02 07:27] LABS: ABG BASE EXCESS 2.4 mmol/L (-2.0-3.0); ABG TCO2 30.9 MMOL/L (21.0-29.0)
[2018-04-02 07:28] LABS: ABG PH 7.34 (7.35-7.45)
[2018-04-02 07:31] LABS: ABG OXYGEN SATURATION 77 % (94-98); ABG PO2 44 mmHg (80-100)
[2018-04-02] MEDS: LEVALBUTEROL 1.25 MG/3 ML NEB INH SCH ×4 (07:57→19:45)
[2018-04-02] MEDS ORDERED: VANCOMYCIN PER PHARMACY 100 GM in SODIUM CHLORIDE 0.9% 250 ML IV SCH (08:00)
[2018-04-02] MEDS ORDERED: POTASSIUM PHOSPHATE 15 MMOL in SODIUM CHLORIDE 0.9% 250 ML IV ONE (08:00)
[2018-04-02] MEDS ORDERED: PERFLUTREN LIPID MICROSPHERES 1.65 MG/1.5 ML VIAL IVP ONE (08:11)
[2018-04-02] MEDS: glipiZIDE 5 MG TABLET PO SCH (08:18)
[2018-04-02] MEDS: BUMETANIDE 1 MG/4 ML VIAL IVP SCH ×2 (08:20→14:29)
[2018-04-02] MEDS: FAMOTIDINE 20 MG TABLET PO SCH (08:59)
[2018-04-02] MEDS: FENOFIBRATE 48 MG TABLET PO SCH (08:59)
[2018-04-02] MEDS: ASPIRIN EC 81 MG TABLET PO SCH (08:59)
[2018-04-02] MEDS: ENOXAPARIN 40 MG/0.4 ML SYRINGE SUBQ SCH ×2 (08:59→21:19)
[2018-04-02] MEDS: CHOLECALCIFEROL 1,000 UNIT TABLET PO SCH (08:59)
[2018-04-02] MEDS: DONEPEZIL 5 MG TABLET PO SCH (08:59)
[2018-04-02] MEDS: FERROUS SULFATE 325 MG TABLET PO SCH ×2 (08:59→21:19)
[2018-04-02] MEDS: FINASTERIDE 5 MG TABLET PO SCH (09:00)
[2018-04-02] MEDS: SACCHAROMYCES BOULARDII 250 MG CAPSULE PO SCH ×2 (09:00→21:20)
[2018-04-02] MEDS: POLYETHYLENE GLYCOL 3350 17 GM PACKET PO SCH (09:00)
[2018-04-02] MEDS: TAMSULOSIN 0.4 MG CAPSULE PO SCH (09:00)
[2018-04-02] MEDS: MONTELUKAST 10 MG TABLET PO SCH (09:00)
[2018-04-02] MEDS: MULTIVITAMIN TABLET PO SCH (09:00)
[2018-04-02] MEDS: PARoxetine 10 MG TABLET PO SCH (09:00)
[2018-04-02] MEDS ORDERED: TORSEMIDE 20 MG TABLET PO SCH (09:00)
[2018-04-02] MEDS: POTASSIUM CHLORIDE 20 MEQ TABLET PO SCH (09:00)
[2018-04-02] MEDS: NYSTATIN POWDER 15 GM TOP SCH ×2 (12:10→21:20)
--- NOTE | 2018-04-02 12:18 | XRAY Report ---
Reason: SOB Procedure Date: 04/02/2018 Accession Number: [id number] / [id number] Procedure: XR - Chest 1 View X-Ray CPT Code: 23653 FULL RESULT: EXAM: CHEST RADIOGRAPHY EXAM DATE: 04/02/2018 09:15 AM. CLINICAL HISTORY: SOB. COMPARISON: 04/01/2018. TECHNIQUE: 1 view. FINDINGS: Lungs/Pleura: Further diminished lung volumes with right hemidiaphragm elevation redemonstrated. Increased vascular and interstitial prominence may be compounded by the hypoinflation but could represent mild infiltrates or edema. Left lung base not optimally visualized. No gross pleural effusion. Mediastinum: Stable mild cardiac enlargement. Other: None. IMPRESSION: 1. Substantial hypoinflation. 2. New vascular and interstitial prominence may be accentuated by the hypoinflation but infiltrate or edema is not excluded. 3. Stable cardiac enlargement. RADIA
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
[2018-04-02] MEDS: IPRATROPIUM 0.2 MG/ML NEB INH SCH (20:24)
[2018-04-02] MEDS: INSULIN GLARGINE 300 UNIT/3 ML PEN SUBQ SCH (21:19)
[2018-04-03] MEDS: INSULIN REGULAR HUMAN 100 UNIT/1 ML 10 ML MDV SUBQ SCH ×2 (00:54→06:23)
[2018-04-03] MEDS: SODIUM CHLORIDE FLUSH 0.9% 10 ML SYRINGE IVP SCH ×4 (00:55→23:05)
[2018-04-03] MEDS ORDERED: VANCOMYCIN INJ 2 GM in SODIUM CHLORIDE 0.9% 500 ML IV SCH (02:00)
[2018-04-03] MEDS: ceFAZolin 1 GM in SODIUM CHLORIDE 0.9% MINIBAG 100 ML IV SCH ×2 (02:14→10:47)
[2018-04-03] MEDS: MORPHINE 10 MG/ML VIAL IVP PRN ×6 (03:19→23:05)
[2018-04-03] MEDS: IPRATROPIUM/ALBUTEROL 3 ML NEB INH PRN ×2 (03:22→22:41)
[2018-04-03 05:06] LABS: BASOPHILS % (AUTO) 0.1 %; HGB - HEMOGLOBIN 11.2 g/dL (14.0-18.0); LYMPHOCYTES # (AUTO) 0.5 10^3/uL (1.5-3.5); LYMPHOCYTES % (AUTO) 4.9 %; MEAN CORPUSCULAR HEMOGLOBIN 30.8 pg (27.0-31.0); MEAN CORPUSCULAR HGB CONC 33.3 g/dL (32.0-36.0); MEAN CORPUSCULAR VOLUME 92.3 fL (80.0-94.0); MEAN PLATELET VOLUME 7.9 fL (7.4-11.4); MONOCYTES # (AUTO) 0.4 10^3/uL (0.0-1.0); MONOCYTES % (AUTO) 4.6 %; NEUTROPHILS # (AUTO) 8.6 10^3/uL (1.5-6.6); NEUTROPHILS % (AUTO) 90.4 %; PLT - PLATELET COUNT 233 10^3/uL (130-450); RED BLOOD COUNT 3.63 10^6/uL (4.70-6.10); RED CELL DISTRIBUTION WIDTH 14.6 % (12.0-15.0); WHITE BLOOD COUNT 9.5 x10^3/uL (4.8-10.8)
[2018-04-03 05:15] LABS: CREATININE 1.7 mg/dL (0.6-1.2)
[2018-04-03] MEDS: ACETAMINOPHEN 1,000 MG/100 ML 100 ML IV PRN ×2 (06:25→15:18)
[2018-04-03] MEDS: methylPREDNISolone SUCCINATE 40 MG/ML VIAL IVP SCH ×3 (06:25→21:44)
[2018-04-03] MEDS: IPRATROPIUM 0.2 MG/ML NEB INH SCH ×4 (07:01→18:00)
[2018-04-03] MEDS: LEVALBUTEROL 1.25 MG/3 ML NEB INH SCH ×4 (07:01→18:00)
[2018-04-03] MEDS: glipiZIDE 5 MG TABLET PO SCH (08:31)
[2018-04-03] MEDS: BUMETANIDE 1 MG/4 ML VIAL IVP SCH ×2 (08:38→14:36)
[2018-04-03] MEDS: ENOXAPARIN 40 MG/0.4 ML SYRINGE SUBQ SCH ×2 (08:46→21:42)
[2018-04-03] MEDS: MULTIVITAMIN TABLET PO SCH (10:49)
[2018-04-03] MEDS: PARoxetine 10 MG TABLET PO SCH (10:49)
[2018-04-03] MEDS: POLYETHYLENE GLYCOL 3350 17 GM PACKET PO SCH (10:49)
[2018-04-03] MEDS: FERROUS SULFATE 325 MG TABLET PO SCH ×2 (10:50→21:42)
[2018-04-03] MEDS: CHOLECALCIFEROL 1,000 UNIT TABLET PO SCH (10:50)
[2018-04-03] MEDS: MONTELUKAST 10 MG TABLET PO SCH (10:50)
[2018-04-03] MEDS: FENOFIBRATE 48 MG TABLET PO SCH (10:50)
[2018-04-03] MEDS: ASPIRIN EC 81 MG TABLET PO SCH (10:50)
[2018-04-03] MEDS: DONEPEZIL 5 MG TABLET PO SCH (10:50)
[2018-04-03] MEDS: FAMOTIDINE 20 MG TABLET PO SCH (10:50)
[2018-04-03] MEDS: FINASTERIDE 5 MG TABLET PO SCH (10:50)
[2018-04-03] MEDS: TAMSULOSIN 0.4 MG CAPSULE PO SCH (10:51)
[2018-04-03] MEDS: SACCHAROMYCES BOULARDII 250 MG CAPSULE PO SCH ×2 (10:51→21:42)
[2018-04-03] MEDS: POTASSIUM CHLORIDE 20 MEQ TABLET PO SCH (10:51)
--- NOTE | 2018-04-03 11:38 | PROVIDER PROGRESS NOTE ---
Subjective - Prog Note Date Prog Note Date: 04/03/18 Prog Note Time: 11:37 - Subjective Subjective: He does listen to his nurse. He follows her with his eyes she walks in the room. Sometimes he responds to her when she is speaking to him. Sometimes he does not. His response for the most part is nonsensical. He babbles short sentences about things that are not there. He has a furrowed brow quite a bit of the time. He does tell her that he is a concerned worrier. The last time he had a fever was at 04:00 yesterday morning. Between then and now he is remained afebrile. Vital signs stable. Oxygen requirement stable. Current Medications - Current Medications Current Medications: Active Medications Hydrocodone Bitart/Acetaminophen ([place] 5/325) 1 tab PO Q6H PRN PRN Reason: PAIN Albuterol/Ipratropium (Duoneb) 3 ml INH Q4H PRN PRN Reason: Wheezing Last Admin: 04/03/18 03:22 Dose: 3 ml Aspirin (Ecotrin) 81 mg PO DAILY [facility] Last Admin: 04/03/18 10:50 Dose: Not Given Bumetanide (Bumex Inj) 2 mg IVP 0800,1400 [facility] Last Admin: 04/03/18 08:38 Dose: 2 mg Cholecalciferol (Vitamin D3) 1,000 unit PO DAILY [facility] Last Admin: 04/03/18 10:50 Dose: Not Given Donepezil HCl (Aricept) 5 mg PO DAILY [facility] Last Admin: 04/03/18 10:50 Dose: Not Given Enoxaparin Sodium (Lovenox) 40 mg SUBQ BID [facility] Last Admin: 04/03/18 08:46 Dose: 40 mg Famotidine (Pepcid) 20 mg PO DAILY [facility] Last Admin: 04/03/18 10:50 Dose: Not Given Fenofibrate (Tricor) 144 mg PO DAILY [facility] Last Admin: 04/03/18 10:50 Dose: Not Given Ferrous Sulfate (Feosol) 325 mg PO BID [facility] Last Admin: 04/03/18 10:50 Dose: Not Given Finasteride (Proscar) 5 mg PO DAILY [facility] Last Admin: 04/03/18 10:50 Dose: Not Given Glipizide (Glucotrol) 5 mg PO 0730 [facility] Last Admin: 04/03/18 08:31 Dose: Not Given Acetaminophen (Ofirmev) 100 mls @ 400 mls/hr IV Q6HR PRN PRN Reason: Pain or Fever > 38C (100.4F) Last Infusion: 04/03/18 06:51 Dose: Infused Cefazolin Sodium 1 gm/ Sodium (Chloride) 100 mls @ 200 mls/hr IV Q8H [facility] Last Infusion: 04/03/18 11:20 Dose: Infused Dextrose/Sodium Chloride (D5.45ns) 1,000 mls @ 60 mls/hr IV .[id number] [facility] Last Admin: 04/02/18 21:18 Dose: 60 mls/hr Insulin Aspart (Novolog) 2 - 10 unit SUBQ 0800,1200,1700,2100 FLORIN PRN Reason: Protocol Last Admin: 04/03/18 12:23 Dose: 2 unit Insulin Glargine (Lantus Solostar) 16 unit SUBQ QPM [facility] Last Admin: 04/02/18 21:19 Dose: 16 unit Ipratropium Willard (Atrovent) 0.5 mg INH RTQ4H [facility] Last Admin: 04/03/18 11:23 Dose: 0.5 mg Levalbuterol HCl (Xopenex) 1.25 mg INH QID [facility] Last Admin: 04/03/18 11:23 Dose: 1.25 mg Methylprednisolone (Solu-Medrol (40mg Vial)) 40 mg IVP Q8HR [facility] Last Admin: 04/03/18 06:25 Dose: 40 mg Montelukast Sodium (Singulair) 10 mg PO DAILY [facility] Last Admin: 04/03/18 10:50 Dose: Not Given Morphine Sulfate (Morphine) 4 mg IVP Q2H PRN PRN Reason: Dyspnea Last Admin: 04/03/18 06:50 Dose: 4 mg Multivitamins (Theragran) 1 tab PO DAILY [facility] Last Admin: 04/03/18 10:49 Dose: Not Given Nystatin (Nystop) 1 applic TOP BID [facility] Last Admin: 04/03/18 13:05 Dose: 1 applic Paroxetine HCl (Paxil) 20 mg PO DAILY [facility] Last Admin: 04/03/18 10:49 Dose: Not Given Polyethylene Glycol (Miralax) 17 gm PO DAILY [facility] Last Admin: 04/03/18 10:49 Dose: Not Given Potassium Chloride (K-Dur) 20 meq PO DAILY [facility] Last Admin: 04/03/18 10:51 Dose: Not Given Prochlorperazine Edisylate (Compazine Inj) 10 mg IVP Q6HR PRN PRN Reason: Nausea / Vomiting Saccharomyces Boulardii (Florastor) 250 mg PO BID [facility] Last Admin: 04/03/18 10:51 Dose: Not Given Sodium Chloride (Normal Saline Flush 0.9%) 10 ml IVP 0100,0900,1700 [facility] Last Admin: 04/03/18 09:00 Dose: 10 ml Sodium Chloride (Normal Saline Flush 0.9%) 10 ml IVP PRN PRN PRN Reason: NEEDED PER PROVIDER ORDERS Tamsulosin HCl (Flomax) 0.8 mg PO DAILY [facility] Last Admin: 04/03/18 10:51 Dose: Not Given Aspirin [Aspirin EC] 81 mg PO DAILY 11/18/13 Cholecalciferol (Vitamin D3) [Vitamin D3] 1,000 unit PO DAILY 11/18/13 Ferrous Sulfate [Iron] 325 mg PO BID 11/18/13 Finasteride [Proscar] 5 mg PO DAILY 11/18/13 Montelukast Sodium [Singulair] 10 mg PO DAILY 11/18/13 Multivitamin [Multi-Vitamin Daily] 1 each PO DAILY 11/18/13 Omeprazole [PriLOSEC] 40 mg PO DAILY 11/18/13 Paroxetine HCl [Paxil] 20 mg PO DAILY 11/18/13 Torsemide [Demadex] 60 mg PO BID 11/18/13 glipiZIDE [Glucotrol] 5 mg PO 0730 11/18/13 amLODIPine [Norvasc] 5 mg PO DAILY 01/04/16 Donepezil HCl 5 mg PO DAILY 11/24/16 Fenofibrate 160 mg PO DAILY 11/24/16 Potassium Chloride 20 meq PO DAILY 11/24/16 Tamsulosin HCl 0.8 mg PO DAILY 11/24/16 Albuterol 2.5 mg INH Q4H PRN 04/02/18 Albuterol Sulfate [Proair Hfa Inhaler] 2 puffs INH Q4H PRN 04/02/18 Ascorbic Acid [Vitamin C] 500 mg PO DAILY 04/02/18 Docusate Sodium 250Mg Capsule [Colace 250Mg Capsule] 250 mg PO BID 04/02/18 Insulin Aspart [Novolog Flexpen] 1 - 5 unit SUBQ ACHS 04/02/18 Insulin Glargine [Lantus Solostar] 6 units SUBQ QPM 04/02/18 Objective - Vital Signs/Intake & Output Reviewed Vital Signs: Yes Vital Signs: Vital Signs Pulse Pulse Resp BP Pulse Ox 04/03/18 11:25 98 18 04/03/18 11:00 76 12 147/80 H 100 04/03/18 10:00 64 14 138/83 H 99 04/03/18 09:00 80 18 116/73 94 04/03/18 08:00 80 17 121/89 H 100 Intake & Output: Intake & Output 03/31/18 04/01/18 04/02/18 04/03/18 23:59 23:59 23:59 23:59 Intake Total 1655 200 Output Total 2835 1205 Balance -1180 -1005 - Objective General Appearance: positive: Mild distress (He is face will get worried. He scratches his nose. Cannot really tell if it is with pain or any discomfort when we ask him directly.), Lethargic Neck: negative: Stiff neck, Carotid bruit Respiratory: positive: Chest non-tender, Rhonchi. negative: Wheezes, Rales Cardiovascular: positive: Regular rate & rhythm. negative: Gallop/S4, Friction rub Abdomen: positive: Nml bowel sounds, No distention, Other (Large abdominal pannus with obesity) Skin: positive: Warm, Dry, Pallor Extremities: positive: Pedal edema Neurologic/Psychiatric: positive: Disoriented to person, Disoriented to place, Disoriented to time, Weakness - Lab Results Fish Bones: 04/03/18 04:35 04/03/18 04:35 Other Labs: Lab Results x24hrs 04/03/18 04/03/18 Range/Units 04:35 04:35 WBC 9.5 (4.8-10.8) x10^3/uL RBC 3.63 L (4.70-6.10) 10^6/uL Hgb 11.2 L (14.0-18.0) g/dL Hct 33.5 L (42.0-52.0) % MCV 92.3 (80.0-94.0) fL MCH 30.8 (27.0-31.0) pg MCHC 33.3 (32.0-36.0) g/dL RDW 14.6 (12.0-15.0) % Plt Count 233 (130-450) 10^3/uL MPV 7.9 (7.4-11.4) fL Neut # (Auto) 8.6 H (1.5-6.6) 10^3/uL Lymph # (Auto) 0.5 L (1.5-3.5) 10^3/uL [place] # (Auto) 0.4 (0.0-1.0) 10^3/uL Eos # (Auto) 0.0 (0.0-0.7) 10^3/uL Baso # (Auto) 0.0 (0.0-0.1) 10^3/uL Absolute Nucleated RBC 0.00 x10^3/uL Nucleated RBC % 0.0 /100WBC Sodium 145 (135-145) mmol/L Potassium 3.9 (3.5-5.0) mmol/L Chloride 106 (101-111) mmol/L Carbon Dioxide 31 (21-32) mmol/L Anion Gap 8.0 (6-13) BUN 43 H (6-20) mg/dL Creatinine 1.7 H (0.6-1.2) mg/dL Estimated GFR (MDRD) 40 L (>89) Glucose 170 H (70-100) mg/dL Calcium 9.0 (8.5-10.3) mg/dL Assessment/Plan - Problem List (1) Encephalopathy, metabolic Impression: Due to infection. Source of infection appears to be the dense cellulitis of his legs. The cellulitis is due to skin breakdown from venous stasis dermatitis. Plan: Continue to treat the infection and continue to hydrate him Appears to be improving somewhat and that he is speaking more sentences today than yesterday (2) Cellulitis of both lower extremities Impression: Presents as weakness, gradual inability to ambulate in a patient who is already immobile in a lift chair for the most part. On examination he had a fever to 39.6 once he was transferred from the emergency room. White cell count has been normal. Blood cultures show gram-positive bacilli in 2 bottles. Negative for staph, strep, enterococcus, Listeria. Wound culture is positive for staph aureus. There is also a gram-negative growth with ID and sensitivities to follow. Urine culture has no growth. Plan: He was initially on vancomycin and Ancef. Pharmacy felt that vancomycin was just double coverage in a patient who has no history of MRSA. As that she is only on Ancef. Ancef day #3 We will broaden coverage to multi-organism treatment with gram positives and gram negatives in view of the skin culture and gram-positive bacilli on blood culture Change to Unasyn (3) Controlled type 2 diabetes mellitus, with long-term current use of insulin Impression: he is on glipizide plus sliding scale insulin Plus Lantus. He has not been getting the glipizide because he has been asleep. He is also on steroids and I would expect his glucose to be elevated. Glucose yesterday was consistently above 200 between 215 and 251. He started dropping in the late evening to 187. Today he has been between 152 and 160. We will continue to monitor. A sulfonylurea with reduced renal function can have prolonged effect. I will stop that. He is on D5 0.45 normal saline. A1c is 5.5%. Qualifiers: Diabetes mellitus complication status: with kidney complications Diabetes mellitus complication detail: with chronic kidney disease Chronic kidney disease stage: stage 3 (moderate) Qualified Code(s): E11.22 - Type 2 diabetes mellitus with diabetic chronic kidney disease; N18.3 - Chronic kidney disease, stage 3 (moderate); Z79.4 - FPC (current) use of insulin (4) Acute worsening of stage 3 chronic kidney disease Impression: Currently responding to therapy. BUN started at 46 and his 43 today. Creatinine started at 1.9 and he is 1.7 today. Plan continue hydration with D5 0.45. (5) COPD exacerbation Impression: He is on nebulizers and IV steroids. No wheezing on today's exam. Continue same treatment (6) Hypokalemia Impression: Resolved after supplementation yesterday (7) Lewy body dementia Impression: Refer to advanced care planning done on admission day April 02 Qualifiers: Dementia behavioral disturbance: without behavioral disturbance Qualified Code(s): G31.83 - Dementia with Lewy bodies; F02.80 - Dementia in other diseases classified elsewhere without behavioral disturbance; F02.80 - Dementia in other diseases classified elsewhere without behavioral disturbance; F02.80 - Dementia in other diseases classified elsewhere without behavioral disturbance
[2018-04-03] MEDS: INSULIN ASPART 300 UNIT/3 ML PEN SUBQ SCH ×3 (12:23→21:42)
--- NOTE | 2018-04-03 12:51 | XRAY Report ---
Reason: SOB Procedure Date: 04/03/2018 Accession Number: [id number] / [id number] Procedure: XR - Chest 1 View X-Ray CPT Code: 31558 FULL RESULT: EXAM: CHEST RADIOGRAPHY EXAM DATE: 04/03/2018 08:59 AM. CLINICAL HISTORY: SOB. COMPARISON: 04/02/2018. TECHNIQUE: 1 view. FINDINGS: Lungs/Pleura: Hypoventilation. No pneumothorax or focal consolidation. The left costophrenic angle is obscured, stable. Mediastinum: Cardiomegaly, stable. Other: None. IMPRESSION: Stable cardiomegaly and pulmonary edema versus hypoventilation. RADIA
[2018-04-03] MEDS: NYSTATIN POWDER 15 GM TOP SCH ×2 (13:05→21:42)
[2018-04-03] MEDS: AMPICILLIN/SULBACTAM 1.5 GM in SODIUM CHLORIDE 0.9% MINIBAG 100 ML IV SCH ×3 (14:33→23:05)
[2018-04-03] MEDS: DEXTROSE 5%-0.45% NACL 1,000 ML IV SCH (15:05)
[2018-04-03] MEDS: INSULIN GLARGINE 300 UNIT/3 ML PEN SUBQ SCH (21:43)
[2018-04-04] MEDS ORDERED: HALOPERIDOL 5 MG/ML VIAL IVP SCH (01:09)
[2018-04-04 06:02] LABS: HGB - HEMOGLOBIN 10.6 g/dL (14.0-18.0); LYMPHOCYTES # (AUTO) 0.5 10^3/uL (1.5-3.5); LYMPHOCYTES % (AUTO) 6.1 %; MEAN CORPUSCULAR HEMOGLOBIN 30.7 pg (27.0-31.0); MEAN CORPUSCULAR HGB CONC 33.4 g/dL (32.0-36.0); MEAN CORPUSCULAR VOLUME 92.1 fL (80.0-94.0); MEAN PLATELET VOLUME 7.7 fL (7.4-11.4); MONOCYTES # (AUTO) 0.4 10^3/uL (0.0-1.0); MONOCYTES % (AUTO) 4.8 %; NEUTROPHILS # (AUTO) 7.2 10^3/uL (1.5-6.6); NEUTROPHILS % (AUTO) 89.1 %; PLT - PLATELET COUNT 229 10^3/uL (130-450); RED BLOOD COUNT 3.47 10^6/uL (4.70-6.10); RED CELL DISTRIBUTION WIDTH 14.6 % (12.0-15.0); WHITE BLOOD COUNT 8.1 x10^3/uL (4.8-10.8)
[2018-04-04] MEDS: AMPICILLIN/SULBACTAM 1.5 GM in SODIUM CHLORIDE 0.9% MINIBAG 100 ML IV SCH ×3 (06:06→19:33)
[2018-04-04] MEDS: methylPREDNISolone SUCCINATE 40 MG/ML VIAL IVP SCH ×3 (06:06→21:07)
[2018-04-04 06:14] LABS: CALCIUM 9.1 mg/dL (8.5-10.3); CREATININE 1.6 mg/dL (0.6-1.2)
[2018-04-04] MEDS: LEVALBUTEROL 1.25 MG/3 ML NEB INH SCH ×4 (07:31→18:30)
[2018-04-04] MEDS: IPRATROPIUM 0.2 MG/ML NEB INH SCH ×4 (07:32→18:30)
[2018-04-04] MEDS: INSULIN ASPART 300 UNIT/3 ML PEN SUBQ SCH ×4 (08:19→21:10)
[2018-04-04] MEDS: SODIUM CHLORIDE FLUSH 0.9% 10 ML SYRINGE IVP SCH ×2 (08:19→17:26)
[2018-04-04] MEDS: FINASTERIDE 5 MG TABLET PO SCH (08:56)
[2018-04-04] MEDS: BUMETANIDE 1 MG/4 ML VIAL IVP SCH ×2 (09:39→15:07)
[2018-04-04] MEDS: POLYETHYLENE GLYCOL 3350 17 GM PACKET PO SCH (09:39)
[2018-04-04] MEDS: ENOXAPARIN 40 MG/0.4 ML SYRINGE SUBQ SCH ×2 (09:40→21:08)
[2018-04-04] MEDS: FENOFIBRATE 48 MG TABLET PO SCH (09:40)
[2018-04-04] MEDS: ASPIRIN EC 81 MG TABLET PO SCH (10:18)
[2018-04-04] MEDS: CHOLECALCIFEROL 1,000 UNIT TABLET PO SCH (10:18)
[2018-04-04] MEDS: MULTIVITAMIN TABLET PO SCH (10:19)
[2018-04-04] MEDS: SACCHAROMYCES BOULARDII 250 MG CAPSULE PO SCH ×2 (10:19→21:08)
[2018-04-04] MEDS: FERROUS SULFATE 325 MG TABLET PO SCH ×2 (10:19→21:08)
[2018-04-04] MEDS: NYSTATIN POWDER 15 GM TOP SCH ×2 (10:19→21:14)
[2018-04-04] MEDS: POTASSIUM CHLORIDE 20 MEQ TABLET PO SCH (10:19)
[2018-04-04] MEDS: FAMOTIDINE 20 MG TABLET PO SCH (10:19)
[2018-04-04] MEDS: MONTELUKAST 10 MG TABLET PO SCH (10:20)
[2018-04-04] MEDS: PARoxetine 10 MG TABLET PO SCH (10:20)
[2018-04-04] MEDS: TAMSULOSIN 0.4 MG CAPSULE PO SCH (10:20)
[2018-04-04] MEDS: DONEPEZIL 5 MG TABLET PO SCH (10:32)
[2018-04-04] MEDS: DEXTROSE 5%-0.45% NACL 1,000 ML IV SCH ×2 (10:44→10:48)
[2018-04-04] MEDS: SODIUM CHLORIDE FLUSH 0.9% 10 ML SYRINGE IVP PRN ×3 (10:46→21:08)
[2018-04-04] MEDS: IPRATROPIUM/ALBUTEROL 3 ML NEB INH PRN (11:12)
[2018-04-04] MEDS: MORPHINE 10 MG/ML VIAL IVP PRN (11:40)
[2018-04-04] MEDS ORDERED: risperiDONE 1 MG TABLET PO SCH (14:00)
--- NOTE | 2018-04-04 15:47 | PROVIDER PROGRESS NOTE ---
Subjective - Prog Note Date Prog Note Date: 04/04/18 Prog Note Time: 15:45 - Subjective Subjective: He is not any condition to tell us if he is doing well or not. He does occasionally speak to the nurses. Occasionally does make a lucid or, due to. But not for the most part. Last night he became very agitated. Needed Haldol. Slept most of the evening and morning after that. There have been no abrupt changes in vital signs. Ongoing treatment is unchanged. Minimal improvement with regards to mental status but his acute kidney failure, COPD, and cellulitis is slowly improving. Current Medications - Current Medications Current Medications: Active Medications Hydrocodone Bitart/Acetaminophen ([place] 5/325) 1 tab PO Q6H PRN PRN Reason: PAIN Albuterol/Ipratropium (Duoneb) 3 ml INH Q4H PRN PRN Reason: Wheezing Last Admin: 04/04/18 11:12 Dose: 3 ml Aspirin (Ecotrin) 81 mg PO DAILY [facility] Last Admin: 04/04/18 10:18 Dose: Not Given Bumetanide (Bumex Inj) 2 mg IVP 0800,1400 [facility] Last Admin: 04/04/18 15:07 Dose: 2 mg Cholecalciferol (Vitamin D3) 1,000 unit PO DAILY [facility] Last Admin: 04/04/18 10:18 Dose: Not Given Donepezil HCl (Aricept) 5 mg PO DAILY [facility] Last Admin: 04/04/18 10:32 Dose: 5 mg Enoxaparin Sodium (Lovenox) 40 mg SUBQ BID [facility] Last Admin: 04/04/18 09:40 Dose: 40 mg Famotidine (Pepcid) 20 mg PO DAILY [facility] Last Admin: 04/04/18 10:19 Dose: Not Given Fenofibrate (Tricor) 144 mg PO DAILY [facility] Last Admin: 04/04/18 09:40 Dose: 144 mg Ferrous Sulfate (Feosol) 325 mg PO BID [facility] Last Admin: 04/04/18 10:19 Dose: Not Given Finasteride (Proscar) 5 mg PO DAILY [facility] Last Admin: 04/04/18 08:56 Dose: 5 mg Acetaminophen (Ofirmev) 100 mls @ 400 mls/hr IV Q6HR PRN PRN Reason: Pain or Fever > 38C (100.4F) Last Infusion: 04/03/18 16:00 Dose: Infused Ampicillin Sodium/Sulbactam (Sodium 1.5 gm/ Sodium Chloride) 100 mls @ 200 mls/ hr IV Q6HR [facility] Last Infusion: 04/04/18 13:28 Dose: Infused Insulin Aspart (Novolog) 2 - 10 unit SUBQ 0800,1200,1700,2100 FLORIN PRN Reason: Protocol Last Admin: 04/04/18 12:37 Dose: 2 unit Insulin Glargine (Lantus Solostar) 16 unit SUBQ QPM [facility] Last Admin: 04/03/18 21:43 Dose: 16 unit Ipratropium [place] (Atrovent) 0.5 mg INH RTQ4H [facility] Last Admin: 04/04/18 14:44 Dose: 0.5 mg Levalbuterol HCl (Xopenex) 1.25 mg INH QID [facility] Last Admin: 04/04/18 14:44 Dose: 1.25 mg Methylprednisolone (Solu-Medrol (40mg Vial)) 40 mg IVP Q8HR [facility] Last Admin: 04/04/18 15:07 Dose: 40 mg Montelukast Sodium (Singulair) 10 mg PO DAILY [facility] Last Admin: 04/04/18 10:20 Dose: Not Given Morphine Sulfate (Morphine) 4 mg IVP Q2H PRN PRN Reason: Dyspnea Last Admin: 04/04/18 11:40 Dose: 4 mg Multivitamins (Theragran) 1 tab PO DAILY [facility] Last Admin: 04/04/18 10:19 Dose: Not Given Nystatin (Nystop) 1 applic TOP BID [facility] Last Admin: 04/04/18 10:19 Dose: 1 applic Paroxetine HCl (Paxil) 20 mg PO DAILY [facility] Last Admin: 04/04/18 10:20 Dose: 20 mg Polyethylene Glycol (Miralax) 17 gm PO DAILY [facility] Last Admin: 04/04/18 09:39 Dose: 17 gm Potassium Chloride (K-Dur) 20 meq PO DAILY [facility] Last Admin: 04/04/18 10:19 Dose: Not Given Prochlorperazine Edisylate (Compazine Inj) 10 mg IVP Q6HR PRN PRN Reason: Nausea / Vomiting Risperidone (Risperdal) 1 mg PO QPM [facility] Saccharomyces Boulardii (Florastor) 250 mg PO BID [facility] Last Admin: 04/04/18 10:19 Dose: Not Given Sodium Chloride (Normal Saline Flush 0.9%) 10 ml IVP 0100,0900,1700 [facility] Last Admin: 04/04/18 08:19 Dose: 10 ml Sodium Chloride (Normal Saline Flush 0.9%) 10 ml IVP PRN PRN PRN Reason: NEEDED PER PROVIDER ORDERS Last Admin: 04/04/18 15:16 Dose: 30 ml Tamsulosin HCl (Flomax) 0.8 mg PO DAILY [facility] Last Admin: 04/04/18 10:20 Dose: Not Given Aspirin [Aspirin EC] 81 mg PO DAILY 11/18/13 Cholecalciferol (Vitamin D3) [Vitamin D3] 1,000 unit PO DAILY 11/18/13 Ferrous Sulfate [Iron] 325 mg PO BID 11/18/13 Finasteride [Proscar] 5 mg PO DAILY 11/18/13 Montelukast Sodium [Singulair] 10 mg PO DAILY 11/18/13 Multivitamin [Multi-Vitamin Daily] 1 each PO DAILY 11/18/13 Omeprazole [PriLOSEC] 40 mg PO DAILY 11/18/13 Paroxetine HCl [Paxil] 20 mg PO DAILY 11/18/13 Torsemide [Demadex] 60 mg PO BID 11/18/13 glipiZIDE [Glucotrol] 5 mg PO 0730 11/18/13 amLODIPine [Norvasc] 5 mg PO DAILY 01/04/16 Donepezil HCl 5 mg PO DAILY 11/24/16 Fenofibrate 160 mg PO DAILY 11/24/16 Potassium Chloride 20 meq PO DAILY 11/24/16 Tamsulosin HCl 0.8 mg PO DAILY 11/24/16 Albuterol 2.5 mg INH Q4H PRN 04/02/18 Albuterol Sulfate [Proair Hfa Inhaler] 2 puffs INH Q4H PRN 04/02/18 Ascorbic Acid [Vitamin C] 500 mg PO DAILY 04/02/18 Docusate Sodium 250Mg Capsule [Colace 250Mg Capsule] 250 mg PO BID 04/02/18 Insulin Aspart [Novolog Flexpen] 1 - 5 unit SUBQ ACHS 04/02/18 Insulin Glargine [Lantus Solostar] 6 units SUBQ QPM 04/02/18 Objective - Vital Signs/Intake & Output Reviewed Vital Signs: Yes Vital Signs: Vital Signs Temp Pulse Resp BP Pulse Ox 04/04/18 15:00 89 12 146/96 H 95 04/04/18 14:23 99 14 156/87 H 04/04/18 13:00 92 14 161/92 H 92 04/04/18 12:26 92 16 87 L 04/04/18 12:00 98.5 C H 82 11 L 154/85 H 92 04/04/18 11:52 102 H 22 147/80 H 91 L Intake & Output: Intake & Output 04/01/18 04/02/18 04/03/18 04/04/18 23:59 23:59 23:59 23:59 Intake Total 2155 2790 2824 Output Total 2835 2500 1920 Balance -680 290 904 - Lab Results Fish Bones: 04/04/18 05:32 04/04/18 05:32 Other Labs: Lab Results x24hrs 04/04/18 04/04/18 Range/Units 05:32 05:32 WBC 8.1 (4.8-10.8) x10^3/uL RBC 3.47 L (4.70-6.10) 10^6/uL Hgb 10.6 L (14.0-18.0) g/dL Hct 31.9 L (42.0-52.0) % MCV 92.1 (80.0-94.0) fL MCH 30.7 (27.0-31.0) pg MCHC 33.4 (32.0-36.0) g/dL RDW 14.6 (12.0-15.0) % Plt Count 229 (130-450) 10^3/uL MPV 7.7 (7.4-11.4) fL Neut # (Auto) 7.2 H (1.5-6.6) 10^3/uL Lymph # (Auto) 0.5 L (1.5-3.5) 10^3/uL [place] # (Auto) 0.4 (0.0-1.0) 10^3/uL Eos # (Auto) 0.0 (0.0-0.7) 10^3/uL Baso # (Auto) 0.0 (0.0-0.1) 10^3/uL Absolute Nucleated RBC 0.01 x10^3/uL Nucleated RBC % 0.1 /100WBC Sodium 143 (135-145) mmol/L Potassium 4.2 (3.5-5.0) mmol/L Chloride 105 (101-111) mmol/L Carbon Dioxide 31 (21-32) mmol/L Anion Gap 7.0 (6-13) BUN 50 H (6-20) mg/dL Creatinine 1.6 H (0.6-1.2) mg/dL Estimated GFR (MDRD) 42 L (>89) Glucose 169 H (70-100) mg/dL Calcium 9.1 (8.5-10.3) mg/dL Assessment/Plan - Problem List (1) Encephalopathy, metabolic Impression: Still a problem. Not at baseline. Due to infection. Source of infection appears to be the dense cellulitis of his legs. The cellulitis is due to skin breakdown from venous stasis dermatitis. Plan: Continue to treat the infection and continue to hydrate him Appears to be improving somewhat and that he is speaking more sentences but he required antipsychotic meds last night Start risperdal for nightly dose. have PT start Eval. to see if he may qualify for SNF for rehab. (2) Cellulitis of both lower extremities Impression: Presents as weakness, gradual inability to ambulate in a patient who is already immobile in a lift chair for the most part. On examination he had a fever to 39.6 once he was transferred from the emergency room. White cell count has been normal. Blood cultures show gram-positive bacilli in 2 bottles. Negative for staph, strep, enterococcus, Listeria. Wound culture is positive for staph aureus. There is also a gram-negative growth with ID and sensitivities to follow. Urine culture has no growth. Plan: He was initially on vancomycin and Ancef. Pharmacy felt that vancomycin was just double coverage in a patient who has no history of MRSA. As that he is only on Ancef. s/p Ancef day #3 I broadened coverage to multi-organism treatment with gram positives and gram negatives in view of the skin culture and gram-positive bacilli on blood culture Changed to Unasyn Day #2 today Will probably need to go to SNF for wound care until healed. Plan is for 2-3 more days here then transfer. doesn't like [facility]. May need to go to [facility]. (3) Controlled type 2 diabetes mellitus, with long-term current use of insulin Impression: he is on glipizide plus sliding scale insulin Plus Lantus. He has not been getting the glipizide because he has been asleep. He is also on steroids and I would expect his glucose to be elevated. Glucose 160, 170, 162, 146 in last few hours. We will continue to monitor. A sulfonylurea with reduced renal function can have prolonged effect. I stopped that. He was on D5 0.45 normal saline. A1c is 5.5%. I have stopped D5 and hep locked IV for now. Qualifiers: Diabetes mellitus complication status: with kidney complications Diabetes mellitus complication detail: with chronic kidney disease Chronic kidney disease stage: stage 3 (moderate) Qualified Code(s): E11.22 - Type 2 diabetes mellitus with diabetic chronic kidney disease; N18.3 - Chronic kidney disease, stage 3 (moderate); Z79.4 - [facility] (current) use of insulin (4) Acute worsening of stage 3 chronic kidney disease Impression: Currently responding to therapy. BUN started at 46 and his 43 today. Creatinine started at 1.9>1.7 >1.6 now Continue to monitor. Use NS if needs more fluids. (5) COPD exacerbation Impression: He is on nebulizers and IV steroids. No wheezing on today's exam. Continue same treatment (6) Hypokalemia Impression: Resolved after supplementation (7) Lewy body dementia Impression: Refer to advanced care planning done on admission day April 02. Start Respirdal tonight. Qualifiers: Dementia behavioral disturbance: without behavioral disturbance Qualified Code(s): G31.83 - Dementia with Lewy bodies; F02.80 - Dementia in other diseases classified elsewhere without behavioral disturbance; F02.80 - Dementia in other diseases classified elsewhere without behavioral disturbance; F02.80 - Dementia in other diseases classified elsewhere without behavioral disturbance
--- NOTE | 2018-04-04 19:10 | CONSULTATION NOTE ---
Palliative Care Consultation - Referral Referring Provider: Valentine Portillo MD Time of Visit: [id number] Referral setting: Hospitalized patient Referral Reason: Lewy Body Dementia/Cellulitis/Goals of Care - Information Sources Records reviewed: RN notes reviewed, Previous records reviewed History/Review of Systems obtained from: Family ( Jessie present for visit) Exam limitations: Clinical condition (patient able to verbalize a few answers / request but nonsensical) - History of Present Illness Brief History of Present Illness: This is a 72-year-old gentleman who was admitted on 04/02 with increasing confusion, worsening swelling and cellulitis, and what finally led her to call 911 was increased shortness of breath. He had had a fall earlier in the week, but has had frequent falls and has recovered, but this time with the breathlessness she felt more concerned, and his care was becoming more difficult to manage from baseline. Patient does have known underlying diabetes, sleep apnea untreated is unable to tolerate CPAP, morbid obesity, hypertension, COPD, history of pneumonia and COPD exacerbations, and recurrent cellulitis of his legs attributed to venous stasis and lower extremity edema. He has been hospitalized in the past with cellulitis, including a transfer to [facility] secondary to deterioration of his wounds and severe infection. Patient does have a diagnosis of Lewy body dementia, he does have hallucinations these Visual, reports he had worsened over the last 1-2 weeks. He has had worsening paranoia, has in the past had various hallucinations have been more disturbing. She reports they have been mostly friendly with this last year. He does have fluctuating levels of clarity, as well as ability to communicate. He has been on donepezil 10 mg, and recently trialed on some carbidopa levodopa 25/100 mg half tab in the a.m. with titration schedule, to attempt to do address his tremors. He does present with hand tremors right greater than left.He has been mostly confused since admission, with an episode of increasing agitation needing help her at all last night. Is able to answer some simple questions at the time of my exam, and to communicate the need to use the bedpan. At home patient has been actually functional, able to stand for cleaning him tony-care, as well as ambulate into the bathroom. He does so sleep in the recliner, with very little pressure relief during the night. He does have a lift chair. Palliative care referral to explore goals of care, provide anticipatory guidance. Medical/Surgical History - Past Medical History Cardiovascular: reports: Congestive heart failure (diasotolic), Hypertension, Coronary artery disease Respiratory: reports: Asthma, COPD, Shortness of breath, Sleep apnea Neuro: Dementia (see's neurologist; has almaey body), Tremors (recently started on trial of carbidopa/levidopa 1/2 25/100 mg; off currently) Endocrine/Autoimmune: reports: Type 2 diabetes : reports: Benign prostate hypertrophy, Incontinence HEENT: reports: None Psych: reports: Depression, Anxiety, Claustrophobia Musculoskeletal: reports: Osteoarthritis Derm: reports: Psoriasis MRSA Hx?: No - Past Surgical History General: reports: Appendectomy, Hiatal hernia repair Ortho: reports: Other Social History - Living Situation Living arrangement: At home Living Situation: With spouse/s.o. Support System: Patient has been compromised for the last 5-6 years, they have been together 25 years. Been before, he does have one son whom she describes as quite anxious, she has 2 children and 2 stepchildren from previous marriages. None of these are able to provide physical support but are supportive to her as far as emotionally. Has been the primary caregiver, she does have paid caregiver do afternoons a week, she does demonstrate symptoms of caregiver fatigue, and is concerned given his current level of functioning about being able to meet his care needs at home. Family History - Family History Family History: Mother: , Father: Medications/Allergies - Medications Active Medication List: Active Medications Hydrocodone Bitart/Acetaminophen ([place] 5/325) 1 tab PO Q6H PRN PRN Reason: PAIN Albuterol/Ipratropium (Duoneb) 3 ml INH Q4H PRN PRN Reason: Wheezing Last Admin: 04/04/18 11:12 Dose: 3 ml Aspirin (Ecotrin) 81 mg PO DAILY [facility] Last Admin: 04/04/18 10:18 Dose: Not Given Bumetanide (Bumex Inj) 2 mg IVP 0800,1400 [facility] Last Admin: 04/04/18 15:07 Dose: 2 mg Cholecalciferol (Vitamin D3) 1,000 unit PO DAILY [facility] Last Admin: 04/04/18 10:18 Dose: Not Given Donepezil HCl (Aricept) 5 mg PO DAILY [facility] Last Admin: 04/04/18 10:32 Dose: 5 mg Enoxaparin Sodium (Lovenox) 40 mg SUBQ BID [facility] Last Admin: 04/04/18 09:40 Dose: 40 mg Famotidine (Pepcid) 20 mg PO DAILY [facility] Last Admin: 04/04/18 10:19 Dose: Not Given Fenofibrate (Tricor) 144 mg PO DAILY [facility] Last Admin: 04/04/18 09:40 Dose: 144 mg Ferrous Sulfate (Feosol) 325 mg PO BID [facility] Last Admin: 04/04/18 10:19 Dose: Not Given Finasteride (Proscar) 5 mg PO DAILY [facility] Last Admin: 04/04/18 08:56 Dose: 5 mg Acetaminophen (Ofirmev) 100 mls @ 400 mls/hr IV Q6HR PRN PRN Reason: Pain or Fever > 38C (100.4F) Last Infusion: 04/03/18 16:00 Dose: Infused Ampicillin Sodium/Sulbactam (Sodium 1.5 gm/ Sodium Chloride) 100 mls @ 200 mls/ hr IV Q6HR [facility] Last Infusion: 04/04/18 13:28 Dose: Infused Insulin Aspart (Novolog) 2 - 10 unit SUBQ 0800,1200,1700,2100 [facility] PRN Reason: Protocol Last Admin: 04/04/18 17:26 Dose: 2 unit Insulin Glargine (Lantus Solostar) 16 unit SUBQ QPM [facility] Last Admin: 04/03/18 21:43 Dose: 16 unit Ipratropium [place] (Atrovent) 0.5 mg INH RTQ4H [facility] Last Admin: 04/04/18 18:30 Dose: 0.5 mg Levalbuterol HCl (Xopenex) 1.25 mg INH QID [facility] Last Admin: 04/04/18 18:30 Dose: 1.25 mg Methylprednisolone (Solu-Medrol (40mg Vial)) 40 mg IVP Q8HR [facility] Last Admin: 04/04/18 15:07 Dose: 40 mg Montelukast Sodium (Singulair) 10 mg PO DAILY [facility] Last Admin: 04/04/18 10:20 Dose: Not Given Morphine Sulfate (Morphine) 4 mg IVP Q2H PRN PRN Reason: Dyspnea Last Admin: 04/04/18 11:40 Dose: 4 mg Multivitamins (Theragran) 1 tab PO DAILY [facility] Last Admin: 04/04/18 10:19 Dose: Not Given Nystatin (Nystop) 1 applic TOP BID [facility] Last Admin: 04/04/18 10:19 Dose: 1 applic Paroxetine HCl (Paxil) 20 mg PO DAILY [facility] Last Admin: 04/04/18 10:20 Dose: 20 mg Polyethylene Glycol (Miralax) 17 gm PO DAILY [facility] Last Admin: 04/04/18 09:39 Dose: 17 gm Potassium Chloride (K-Dur) 20 meq PO DAILY [facility] Last Admin: 04/04/18 10:19 Dose: Not Given Prochlorperazine Edisylate (Compazine Inj) 10 mg IVP Q6HR PRN PRN Reason: Nausea / Vomiting Risperidone (Risperdal) 1 mg PO QPM [facility] Saccharomyces Boulardii (Florastor) 250 mg PO BID [facility] Last Admin: 04/04/18 10:19 Dose: Not Given Sodium Chloride (Normal Saline Flush 0.9%) 10 ml IVP 0100,0900,1700 [facility] Last Admin: 04/04/18 17:26 Dose: Not Given Sodium Chloride (Normal Saline Flush 0.9%) 10 ml IVP PRN PRN PRN Reason: NEEDED PER PROVIDER ORDERS Last Admin: 04/04/18 15:16 Dose: 30 ml Tamsulosin HCl (Flomax) 0.8 mg PO DAILY [facility] Last Admin: 04/04/18 10:20 Dose: Not Given Aspirin [Aspirin EC] 81 mg PO DAILY 11/18/13 Cholecalciferol (Vitamin D3) [Vitamin D3] 1,000 unit PO DAILY 11/18/13 Ferrous Sulfate [Iron] 325 mg PO BID 11/18/13 Finasteride [Proscar] 5 mg PO DAILY 11/18/13 Montelukast Sodium [Singulair] 10 mg PO DAILY 11/18/13 Multivitamin [Multi-Vitamin Daily] 1 each PO DAILY 11/18/13 Omeprazole [PriLOSEC] 40 mg PO DAILY 11/18/13 Paroxetine HCl [Paxil] 20 mg PO DAILY 11/18/13 Torsemide [Demadex] 60 mg PO BID 11/18/13 glipiZIDE [Glucotrol] 5 mg PO 0730 11/18/13 amLODIPine [Norvasc] 5 mg PO DAILY 01/04/16 Donepezil HCl 5 mg PO DAILY 11/24/16 Fenofibrate 160 mg PO DAILY 11/24/16 Potassium Chloride 20 meq PO DAILY 11/24/16 Tamsulosin HCl 0.8 mg PO DAILY 11/24/16 Albuterol 2.5 mg INH Q4H PRN 04/02/18 Albuterol Sulfate [Proair Hfa Inhaler] 2 puffs INH Q4H PRN 04/02/18 Ascorbic Acid [Vitamin C] 500 mg PO DAILY 04/02/18 Docusate Sodium 250Mg Capsule [Colace 250Mg Capsule] 250 mg PO BID 04/02/18 Insulin Aspart [Novolog Flexpen] 1 - 5 unit SUBQ ACHS 04/02/18 Insulin Glargine [Lantus Solostar] 6 units SUBQ QPM 04/02/18 - Allergies Allergies/Adverse Reactions: Allergies Allergy/AdvReac Type Severity Reaction Status Date / Time bacitracin Allergy Severe Unknown Verified 04/01/18 22:08 [From Neosporin ([id number])] bacitracin zinc * Allergy Severe Unknown Verified 04/01/18 22:08 [From Neosporin ([id number])] latex Allergy Severe Unknown Verified 04/01/18 22:08 lovastatin Allergy Severe Unknown Verified 04/01/18 22:08 neomycin sulfate * Allergy Severe Unknown Verified 04/01/18 22:08 [From Neosporin ([id number])] polymyxin B Allergy Severe Unknown Verified 04/01/18 22:08 [From Neosporin ([id number])] pravastatin sodium * Allergy Severe Unknown Verified 04/01/18 22:08 [From Pravachol] trazodone Allergy Unknown Verified 04/01/18 22:08 Review of Systems - Constitutional Constitutional: reports: Fatigue, Fever - Cardiovascular Cardiovascular: reports: Edema - Respiratory Respiratory: reports: SOB at rest, SOB with exertion - Gastrointestinal Gastrointestinal: reports: Poor appetite - Genitourinary Genitourinary: reports: Other (has alvarez) - Musculoskeletal Musculoskeletal: reports: Other (has been bedbound since admit) - Integumentary Integumentary: reports: Other (cellulitis; right knee skin tear; alteration in skin integrity coccyx with large area of bruising) - Neurological Neurological: reports: General weakness, Memory problems, Slurred speech - Psychiatric Psychiatric: reports: Anxiety ( reports underlying anxiety for years), Hallucinations - Endocrine Endocrine: reports: Diabetes type 2 - Hematologic/Lymphatic Hematologic/Lymphatic: reports: Recurrent infections (hx of pneumonia/cellulits) - All Other Systems All Other Systems: reports: Other (limited ROS patient unable to participate) Physical Exam - Vital Signs Vital Signs: Vital Signs x48h Temp Pulse Pulse Pulse Resp BP BP 04/04/18 18:32 96 22 04/04/18 16:00 37.3 C 102 H 13 147/99 H 04/04/18 15:00 93 89 20 146/96 H 04/04/18 14:45 87 146/96 H 04/04/18 14:23 99 14 156/87 H 04/04/18 13:00 92 14 161/92 H 04/04/18 12:26 92 16 04/04/18 12:00 98.5 C H 82 11 L 154/85 H 04/04/18 11:52 102 H 22 147/80 H Pulse Ox 04/04/18 18:32 04/04/18 16:00 97 04/04/18 15:00 95 04/04/18 14:45 04/04/18 14:23 04/04/18 13:00 92 04/04/18 12:26 87 L 04/04/18 12:00 92 04/04/18 11:52 91 L - Physical Exam General Appearance: positive: Mild distress, Anxious, Lethargic Eyes Bilateral: positive: Other (droopy; difficulty focusing) ENT: positive: Other (tongue with some white patches; at risk for canidiasis; denies discomfort; observed choking with water) Neck: positive: Trachea midline (thick neck) Cardiovascular: positive: Irregular, Tachycardia Respiratory: positive: Diminished in bases, Rales (crackles in bases right greater than left) Abdomen: positive: Non-tender, Nml bowel sounds, Distended, Obese Skin: positive: Pallor, Bruising (back of thighs/coccyx area), Wound (left skin tear; n s/s infection;), Other (venous stasis-areas marked and redness fading;) Extremities: positive: Pedal edema Neurologic/Psychiatric: positive: Disoriented to person (seems to recognize ), Disoriented to place, Disoriented to time, Weakness, Slurred/abnml speech, Depressed mood/affect Palliative Care - POLST Patient has POLST: Yes POLST Status: DNR, Selective Treatment (did not see new copy) Pain: Comment (denies pain) Performance Status: Previous level of functioning included mostly chair bound, able to with lift chair transition to walk or ambulate short distances into the bathroom, was able to fluctuate days be able to tolerate shower, did need assistance with dressing and bathing provided by either caregiver or . On a good day patient able to help with the dishes, but fatigues rapidly. His days mostly consist of watching TV, eating meals with his , occasionally able to carry on conversations. - Palliative Care Discussion: does have some insight into the patient's current status, she he has recovered in the past so from cellulitis, has just taken him longer. She does understand most likely will not return to his previous level of functioning but she is hoping that he will be at a place where she can still take him home and care for him. He has been acutely ill in the past, so she does have I hopes that he will return to a place where she can still care for him, he would need to be ambulatory though as far as being able to toilet, be able to transfer off of the chair, and could not be bedbound. She does understand from her conversation with Dr. Portillo, that at this point his quality of life if he were to deteriorate further, or have some kind of event would most likely be quite poor. She has in the past had him a full code and full treatment, she has transitioned as far as her thinking to be a do not attempt resuscitate, but does continue want active treatment at this point in time. Her worries are in the future how she will be able to care for him, as she does understand given both his dementia and his multiple comorbidities that he would be expected decline, she is worried about being able to afford care to be able to keep him at home and is hoping there are resources available to her to provide more support in the home. She is quite open to having palliative care follow him, to help with some of the decision making regarding not only transition points but also it is difficult to get him in to his PCP at this point in time. Her short-term goals are for him to go to for [facility], she has had good experience with that given his underlying dementia, this would be a place for both he knows the SNF in the [facility] knows him. She is hoping he will return to a level of functioning for which she can meet his care needs in the home setting. He had been able to ambulate with a walker, transfer himself up from the lift chair, and only needed assistance with bathing.If he were to have a transition or worsen, she would still need help with caregiving but for EOL would like to have him home with hospice if this was possible. Results - Lab Results Lab results reviewed: Yes Fish Bones: 04/04/18 05:32 04/04/18 05:32 Lab and Imaging Results: Lab Results x24hrs 04/04/18 04/04/18 Range/Units 05:32 05:32 WBC 8.1 (4.8-10.8) x10^3/uL RBC 3.47 L (4.70-6.10) 10^6/uL Hgb 10.6 L (14.0-18.0) g/dL Hct 31.9 L (42.0-52.0) % MCV 92.1 (80.0-94.0) fL MCH 30.7 (27.0-31.0) pg MCHC 33.4 (32.0-36.0) g/dL RDW 14.6 (12.0-15.0) % Plt Count 229 (130-450) 10^3/uL MPV 7.7 (7.4-11.4) fL Neut # (Auto) 7.2 H (1.5-6.6) 10^3/uL Lymph # (Auto) 0.5 L (1.5-3.5) 10^3/uL [place] # (Auto) 0.4 (0.0-1.0) 10^3/uL Eos # (Auto) 0.0 (0.0-0.7) 10^3/uL Baso # (Auto) 0.0 (0.0-0.1) 10^3/uL Absolute Nucleated RBC 0.01 x10^3/uL Nucleated RBC % 0.1 /100WBC Sodium 143 (135-145) mmol/L Potassium 4.2 (3.5-5.0) mmol/L Chloride 105 (101-111) mmol/L Carbon Dioxide 31 (21-32) mmol/L Anion Gap 7.0 (6-13) BUN 50 H (6-20) mg/dL Creatinine 1.6 H (0.6-1.2) mg/dL Estimated GFR (MDRD) 42 L (>89) Glucose 169 H (70-100) mg/dL Calcium 9.1 (8.5-10.3) mg/dL Impression and Recommendations - Palliative Care Impression: This is a 72-year-old gentleman with multiple comorbidities, and now acutely admitted for COPD exacerbation and cellulitis. He still remains confused, has started to verbalize and speak a little bit more, and did feed himself at lunch. He is showing some signs of improvement, but remains quite frail. short-term goal, is to have patient improve his functional status, address his acute infection, and stabilize his respiratory status and transfer to SNF. Long- term goal is to have patient remaining in the home for as long as possible, with the hope that at end of life would be able to manage with hospice. Recommendations/Counseling Done: 1. Lewy body dementia. Carbidopa levodopa currently on hold, will continue to monitor his anxiety/confusion has shown some improvement. SNF prefer no antipsychotic medications if possible with their new guidelines. Given his underlying disease process, he may benefit from low-dose antipsychotics, the does report a history of using these with little improvement. 2. Cellulitis. Patient does show some improvements, he has had significant infections in the past, still pending C&S. 3. Advanced care planning. Of further conversation regarding supporting 's goals of care, the findings short-term and long-term goals, anticipatory guidance provided regarding disease process and expected course with multiple comorbidities. Short-term goal is to transfer him to the SNF treat acute conditions and improve functional status, palliative care will continue to follow and resume support when returns back home. Provided "hard choices for loving people" in support regarding struggling with transition to DNAR status. Time Spent: 50 minutes is getting 50% of this done in counseling regarding goals of care, disease trajectory, and anticipatory guidance
[2018-04-04] MEDS: risperiDONE 1 MG TABLET PO SCH (21:08)
[2018-04-04] MEDS: INSULIN GLARGINE 300 UNIT/3 ML PEN SUBQ SCH (21:10)
[2018-04-05] MEDS: SODIUM CHLORIDE FLUSH 0.9% 10 ML SYRINGE IVP SCH ×3 (03:38→18:31)
[2018-04-05] MEDS: AMPICILLIN/SULBACTAM 1.5 GM in SODIUM CHLORIDE 0.9% MINIBAG 100 ML IV SCH ×4 (03:38→18:31)
[2018-04-05] MEDS ORDERED: SODIUM CHLORIDE FLUSH 0.9% 10 ML SYRINGE ONE (03:44)
[2018-04-05 05:19] LABS: BASOPHILS % (AUTO) 0.1 %; HGB - HEMOGLOBIN 10.8 g/dL (14.0-18.0); LYMPHOCYTES # (AUTO) 0.5 10^3/uL (1.5-3.5); LYMPHOCYTES % (AUTO) 7.2 %; MEAN CORPUSCULAR HEMOGLOBIN 30.3 pg (27.0-31.0); MEAN CORPUSCULAR VOLUME 91.9 fL (80.0-94.0); MEAN PLATELET VOLUME 7.3 fL (7.4-11.4); MONOCYTES # (AUTO) 0.4 10^3/uL (0.0-1.0); NEUTROPHILS # (AUTO) 6.2 10^3/uL (1.5-6.6); NEUTROPHILS % (AUTO) 87.7 %; PLT - PLATELET COUNT 246 10^3/uL (130-450); RED BLOOD COUNT 3.55 10^6/uL (4.70-6.10); RED CELL DISTRIBUTION WIDTH 14.2 % (12.0-15.0); WHITE BLOOD COUNT 7.1 x10^3/uL (4.8-10.8)
[2018-04-05 05:27] LABS: CALCIUM 8.9 mg/dL (8.5-10.3); CREATININE 1.5 mg/dL (0.6-1.2)
[2018-04-05] MEDS: methylPREDNISolone SUCCINATE 40 MG/ML VIAL IVP SCH ×3 (06:03→21:24)
[2018-04-05] MEDS: INSULIN ASPART 300 UNIT/3 ML PEN SUBQ SCH ×4 (08:16→21:13)
[2018-04-05] MEDS: DONEPEZIL 5 MG TABLET PO SCH (10:16)
[2018-04-05] MEDS: FINASTERIDE 5 MG TABLET PO SCH (10:16)
[2018-04-05] MEDS: TAMSULOSIN 0.4 MG CAPSULE PO SCH (10:17)
[2018-04-05] MEDS: PARoxetine 10 MG TABLET PO SCH (10:17)
[2018-04-05] MEDS: POTASSIUM CHLORIDE 20 MEQ TABLET PO SCH (10:17)
[2018-04-05] MEDS: MONTELUKAST 10 MG TABLET PO SCH (10:17)
[2018-04-05] MEDS: ASPIRIN EC 81 MG TABLET PO SCH (10:17)
[2018-04-05] MEDS: ENOXAPARIN 40 MG/0.4 ML SYRINGE SUBQ SCH ×2 (10:18→21:12)
[2018-04-05] MEDS: BUMETANIDE 1 MG/4 ML VIAL IVP SCH ×2 (10:18→14:56)
[2018-04-05] MEDS: POLYETHYLENE GLYCOL 3350 17 GM PACKET PO SCH (10:19)
[2018-04-05] MEDS: CHOLECALCIFEROL 1,000 UNIT TABLET PO SCH (10:32)
[2018-04-05] MEDS: SACCHAROMYCES BOULARDII 250 MG CAPSULE PO SCH ×2 (10:32→21:13)
[2018-04-05] MEDS: FENOFIBRATE 48 MG TABLET PO SCH (10:32)
[2018-04-05] MEDS: FERROUS SULFATE 325 MG TABLET PO SCH ×2 (10:32→21:14)
[2018-04-05] MEDS: FAMOTIDINE 20 MG TABLET PO SCH (10:32)
[2018-04-05] MEDS: MULTIVITAMIN TABLET PO SCH (10:32)
[2018-04-05] MEDS: NYSTATIN POWDER 15 GM TOP SCH ×2 (12:19→21:11)
--- NOTE | 2018-04-05 17:13 | CONSULTATION NOTE ---
Palliative Care Follow Up - Referral Referring Provider: Valentine Portillo MD Time of Visit: [id number] Referral setting: Hospitalized patient Referral Reason: Cellulitis/Lewey Body Dementia/Goals of Care - Information Sources Records reviewed: RN notes reviewed History/Review of Systems obtained from: Family (Jessie present for visit;) Exam limitations: Clinical condition (patient unable to participate in ROS) - History of Present Illness Update Brief HPI Update: This is a 72-year-old gentleman who is admitted acutely for respiratory distress, and cellulitis. He has been receiving antibiotics and respiratory tr eatments with improvement. His lower extremity edema is improved he is just had his Alvarez catheter removed, he has both continent and incontinent at baseline. Patient does have underlying Lewy body dementia, fluctuating cognitive status, and now with functional decline. Patient currently awaiting transition to rehab facility, most likely discharged tomorrow. Social History - Living Situation Living arrangement: At home Living Situation: With spouse/s.o. Support System: has been providing 15/02 care, she does exhibit caregiver fatigue. Patient functionally and cognitively declined over the previous week prior to admission. He has had multiple hospitalizations, has often recovered to functional status so that she is able to still take care of them, though does admit each hospitalization he does get a little bit worse. Her goal is to take him back home, at the point that she is able to care for him again, this would mean he would need to be able to ambulate and transfer independently, he does have a lift chair. He is mostly chair bound and sleeps in his recliner and his home setting. They have had caregiving support only 2 afternoons a week, she would benefit from increased care but financially this is not been feasible Medications/Allergies - Medications Active Medication List: Active Medications Hydrocodone Bitart/Acetaminophen ([place] 5/325) 1 tab PO Q6H PRN PRN Reason: PAIN Albuterol/Ipratropium (Duoneb) 3 ml INH Q4H PRN PRN Reason: Wheezing Last Admin: 04/04/18 11:12 Dose: 3 ml Aspirin (Ecotrin) 81 mg PO DAILY [facility] Last Admin: 04/05/18 10:17 Dose: 81 mg Bumetanide (Bumex Inj) 2 mg IVP 0800,1400 [facility] Last Admin: 04/05/18 14:56 Dose: 2 mg Cholecalciferol (Vitamin D3) 1,000 unit PO DAILY [facility] Last Admin: 04/05/18 10:32 Dose: 1,000 unit Donepezil HCl (Aricept) 5 mg PO DAILY [facility] Last Admin: 04/05/18 10:16 Dose: 5 mg Enoxaparin Sodium (Lovenox) 40 mg SUBQ BID [facility] Last Admin: 04/05/18 10:18 Dose: 40 mg Famotidine (Pepcid) 20 mg PO DAILY [facility] Last Admin: 04/05/18 10:32 Dose: 20 mg Fenofibrate (Tricor) 144 mg PO DAILY [facility] Last Admin: 04/05/18 10:32 Dose: 144 mg Ferrous Sulfate (Feosol) 325 mg PO BID [facility] Last Admin: 04/05/18 10:32 Dose: 325 mg Finasteride (Proscar) 5 mg PO DAILY [facility] Last Admin: 04/05/18 10:16 Dose: 5 mg Acetaminophen (Ofirmev) 100 mls @ 400 mls/hr IV Q6HR PRN PRN Reason: Pain or Fever > 38C (100.4F) Last Infusion: 04/03/18 16:00 Dose: Infused Ampicillin Sodium/Sulbactam (Sodium 1.5 gm/ Sodium Chloride) 100 mls @ 200 mls/hr IV Q6HR [facility] Last Infusion: 04/05/18 13:45 Dose: Infused Insulin Aspart (Novolog) 2 - 10 unit SUBQ 0800,1200,1700,2100 [facility]; Protocol Last Admin: 04/05/18 12:20 Dose: 2 unit Insulin Glargine (Lantus Solostar) 16 unit SUBQ QPM [facility] Last Admin: 04/04/18 21:10 Dose: 16 unit Methylprednisolone (Solu-Medrol (40mg Vial)) 40 mg IVP Q8HR [facility] Last Admin: 04/05/18 14:48 Dose: 40 mg Montelukast Sodium (Singulair) 10 mg PO DAILY [facility] Last Admin: 04/05/18 10:17 Dose: 10 mg Morphine Sulfate (Morphine) 4 mg IVP Q2H PRN PRN Reason: Dyspnea Last Admin: 04/04/18 11:40 Dose: 4 mg Multivitamins (Theragran) 1 tab PO DAILY [facility] Last Admin: 04/05/18 10:32 Dose: 1 tab Nystatin (Nystop) 1 applic TOP BID [facility] Last Admin: 04/05/18 12:19 Dose: 1 applic Paroxetine HCl (Paxil) 20 mg PO DAILY [facility] Last Admin: 04/05/18 10:17 Dose: 20 mg Polyethylene Glycol (Miralax) 17 gm PO DAILY [facility] Last Admin: 04/05/18 10:19 Dose: 17 gm Potassium Chloride (K-Dur) 20 meq PO DAILY [facility] Last Admin: 04/05/18 10:17 Dose: 20 meq Prochlorperazine Edisylate (Compazine Inj) 10 mg IVP Q6HR PRN PRN Reason: Nausea / Vomiting Risperidone (Risperdal) 1 mg PO QPM [facility] Last Admin: 04/04/18 21:08 Dose: 1 mg Saccharomyces Boulardii (Florastor) 250 mg PO BID [facility] Last Admin: 04/05/18 10:32 Dose: 250 mg Sodium Chloride (Normal Saline Flush 0.9%) 10 ml IVP 0100,0900,1700 [facility] Last Admin: 04/05/18 10:33 Dose: 10 ml Sodium Chloride (Normal Saline Flush 0.9%) 10 ml IVP PRN PRN PRN Reason: NEEDED PER PROVIDER ORDERS Last Admin: 04/04/18 21:08 Dose: 10 ml Tamsulosin HCl (Flomax) 0.8 mg PO DAILY [facility] Last Admin: 04/05/18 10:17 Dose: 0.8 mg Aspirin [Aspirin EC] 81 mg PO DAILY 11/18/13 Cholecalciferol (Vitamin D3) [Vitamin D3] 1,000 unit PO DAILY 11/18/13 Ferrous Sulfate [Iron] 325 mg PO BID 11/18/13 Finasteride [Proscar] 5 mg PO DAILY 11/18/13 Montelukast Sodium [Singulair] 10 mg PO DAILY 11/18/13 Multivitamin [Multi-Vitamin Daily] 1 each PO DAILY 11/18/13 Omeprazole [PriLOSEC] 40 mg PO DAILY 11/18/13 Paroxetine HCl [Paxil] 20 mg PO DAILY 11/18/13 Torsemide [Demadex] 60 mg PO BID 11/18/13 glipiZIDE [Glucotrol] 5 mg PO 0730 11/18/13 amLODIPine [Norvasc] 5 mg PO DAILY 01/04/16 Donepezil HCl 5 mg PO DAILY 11/24/16 Fenofibrate 160 mg PO DAILY 11/24/16 Potassium Chloride 20 meq PO DAILY 11/24/16 Tamsulosin HCl 0.8 mg PO DAILY 11/24/16 Albuterol 2.5 mg INH Q4H PRN 04/02/18 Albuterol Sulfate [Proair Hfa Inhaler] 2 puffs INH Q4H PRN 04/02/18 Ascorbic Acid [Vitamin C] 500 mg PO DAILY 04/02/18 Docusate Sodium 250Mg Capsule [Colace 250Mg Capsule] 250 mg PO BID 04/02/18 Insulin Aspart [Novolog Flexpen] 1 - 5 unit SUBQ ACHS 04/02/18 Insulin Glargine [Lantus Solostar] 6 units SUBQ QPM 04/02/18 - Allergies Allergies/Adverse Reactions: Allergies Allergy/AdvReac Type Severity Reaction Status Date / Time bacitracin Allergy Severe Unknown Verified 04/01/18 22:08 [From Neosporin ([id number])] bacitracin zinc * Allergy Severe Unknown Verified 04/01/18 22:08 [From Neosporin ([id number])] latex Allergy Severe Unknown Verified 04/01/18 22:08 lovastatin Allergy Severe Unknown Verified 04/01/18 22:08 neomycin sulfate * Allergy Severe Unknown Verified 04/01/18 22:08 [From Neosporin ([id number])] polymyxin B Allergy Severe Unknown Verified 04/01/18 22:08 [From Neosporin ([id number])] pravastatin sodium * Allergy Severe Unknown Verified 04/01/18 22:08 [From Pravachol] trazodone Allergy Unknown Verified 04/01/18 22:08 Review of Systems - Eyes Eyes: reports: Vision loss - Cardiovascular Cardiovascular: reports: Edema (improving), Decr. exercise tolerance - Respiratory Respiratory: reports: SOB with exertion, Other (still on oxygen; untreates SONJA). denies: SOB at rest - Gastrointestinal Gastrointestinal: reports: Good appetite - Genitourinary Genitourinary: reports: Incontinence (alvarez removed about hour prior to exam) - Musculoskeletal Musculoskeletal: reports: Muscle weakness, Transfer issues (currently working with PT;) - Integumentary Integumentary: reports: Rash, Dryness, Other (venous stasis) - Neurological Neurological: reports: General weakness, Memory problems - Psychiatric Psychiatric: reports: Anxiety, Hallucinations, Behavior disturbances - Endocrine Endocrine: reports: Diabetes type 2, Intolerance to heat - Hematologic/Lymphatic Hematologic/Lymphatic: reports: Recurrent infections - Other Findings Other Findings: limited ROS Physical Exam - Vital Signs Vital Signs: Vital Signs x48h Temp Pulse Pulse Resp BP Pulse Ox 04/05/18 15:33 37.0 C 83 16 150/82 H 98 04/05/18 10:15 85 18 - Physical Exam General Appearance: positive: Moderate distress, Anxious (patient wadding up sheet; wanting things to "settle down"; didn't want to answer questions) Eyes Bilateral: positive: Normal inspection ENT: negative: Pharyngeal erythema Neck: positive: Trachea midline (thick neck) Cardiovascular: positive: Regular rate & rhythm Respiratory: positive: Diminished in bases, Other (less respiratory effort; stil l on oxygen; not on oxygen at baseline). negative: Wheezes, Rales, Rhonchi Abdomen: positive: Nml bowel sounds, Distended, Taut, Obese Skin: positive: Wound (LE wounds with less redness; drying up some; edema less;) Extremities: positive: Pedal edema (trace to 1+) Neurologic/Psychiatric: positive: Disoriented to person (recognizes ), Disoriented to place, Disoriented to time, Weakness, Flat affect, Other (speaking more lengthy sentences but still nonsensical at times;) Palliative Care - POLST Patient has POLST: Yes POLST Status: DNR, Selective Treatment Pain: No pain (denies pain; reports at baseline only knee pain occasionally) - Palliative Care Discussion: Spoke with , she is hoping he will be able to transition to the [facility]. There is a waiting list though, she did agree to plan B being carriage. We did initiate conversation with the social sciences research scientist, as well as requested application for [facility] program. seems much more calm today, though patient does appear to be quite agitated in the context she told him he was not can be able to go home. She says he does do well when he is exercising, or has something look forward to. She has attempted to make contact with his son, Mohan, With patient improving though he does not feel quite so urgent about doing so.She does present with awareness of patient's continued complexity with his multiple comorbidities, concern about functional and cognitive decline, will continue to revisit goals when returns from the snf. She would like ongoing continued palliative care support, if patient is a [facility] will get outpatient referral, [facility] she will contact me prior to his discharge Results - Lab Results Fish Bones: 04/05/18 05:04 04/05/18 05:04 Lab and Imaging Results: Lab Results x24hrs 04/05/18 04/05/18 04/05/18 Range/Units 16:47 11:44 08:03 WBC (4.8-10.8) x10^3/uL RBC (4.70-6.10) 10^6/uL Hgb (14.0-18.0) g/dL Hct (42.0-52.0) % MCV (80.0-94.0) fL MCH (27.0-31.0) pg MCHC (32.0-36.0) g/dL RDW (12.0-15.0) % Plt Count (130-450) 10^3/uL MPV (7.4-11.4) fL Neut # (Auto) (1.5-6.6) 10^3/uL Lymph # (Auto) (1.5-3.5) 10^3/uL Yell # (Auto) (0.0-1.0) 10^3/uL Eos # (Auto) (0.0-0.7) 10^3/uL Baso # (Auto) (0.0-0.1) 10^3/uL Absolute Nucleated RBC x10^3/uL Nucleated RBC % /100WBC Sodium (135-145) mmol/L Potassium (3.5-5.0) mmol/L Chloride (101-111) mmol/L Carbon Dioxide (21-32) mmol/L Anion Gap (6-13) BUN (6-20) mg/dL Creatinine (0.6-1.2) mg/dL Estimated GFR (MDRD) (>89) Glucose (70-100) mg/dL POC Whole Bld Glucose 169 H 160 H 158 H (70 - 100) mg/dL Calcium (8.5-10.3) mg/dL 04/05/18 04/05/18 04/04/18 Range/Units 05:04 05:04 20:37 WBC 7.1 (4.8-10.8) x10^3/uL RBC 3.55 L (4.70-6.10) 10^6/uL Hgb 10.8 L (14.0-18.0) g/dL Hct 32.6 L (42.0-52.0) % MCV 91.9 (80.0-94.0) fL MCH 30.3 (27.0-31.0) pg MCHC 33.0 (32.0-36.0) g/dL RDW 14.2 (12.0-15.0) % Plt Count 246 (130-450) 10^3/uL MPV 7.3 L (7.4-11.4) fL Neut # (Auto) 6.2 (1.5-6.6) 10^3/uL Lymph # (Auto) 0.5 L (1.5-3.5) 10^3/uL Yell # (Auto) 0.4 (0.0-1.0) 10^3/uL Eos # (Auto) 0.0 (0.0-0.7) 10^3/uL Baso # (Auto) 0.0 (0.0-0.1) 10^3/uL Absolute Nucleated RBC 0.00 x10^3/uL Nucleated RBC % 0.0 /100WBC Sodium 140 (135-145) mmol/L Potassium 4.1 (3.5-5.0) mmol/L Chloride 99 L (101-111) mmol/L Carbon Dioxide 33 H (21-32) mmol/L Anion Gap 8.0 (6-13) BUN 52 H (6-20) mg/dL Creatinine 1.5 H (0.6-1.2) mg/dL Estimated GFR (MDRD) 46 L (>89) Glucose 172 H (70-100) mg/dL POC Whole Bld Glucose 202 H (70 - 100) mg/dL Calcium 8.9 (8.5-10.3) mg/dL 04/04/18 04/04/18 04/04/18 Range/Units 16:41 11:43 07:50 WBC (4.8-10.8) x10^3/uL RBC (4.70-6.10) 10^6/uL Hgb (14.0-18.0) g/dL Hct (42.0-52.0) % MCV (80.0-94.0) fL MCH (27.0-31.0) pg MCHC (32.0-36.0) g/dL RDW (12.0-15.0) % Plt Count (130-450) 10^3/uL MPV (7.4-11.4) fL Neut # (Auto) (1.5-6.6) 10^3/uL Lymph # (Auto) (1.5-3.5) 10^3/uL Yell # (Auto) (0.0-1.0) 10^3/uL Eos # (Auto) (0.0-0.7) 10^3/uL Baso # (Auto) (0.0-0.1) 10^3/uL Absolute Nucleated RBC x10^3/uL Nucleated RBC % /100WBC Sodium (135-145) mmol/L Potassium (3.5-5.0) mmol/L Chloride (101-111) mmol/L Carbon Dioxide (21-32) mmol/L Anion Gap (6-13) BUN (6-20) mg/dL Creatinine (0.6-1.2) mg/dL Estimated GFR (MDRD) (>89) Glucose (70-100) mg/dL POC Whole Bld Glucose 159 H 146 H 152 H (70 - 100) mg/dL Calcium (8.5-10.3) mg/dL 04/03/18 04/03/18 04/03/18 Range/Units 20:56 16:33 12:04 WBC (4.8-10.8) x10^3/uL RBC (4.70-6.10) 10^6/uL Hgb (14.0-18.0) g/dL Hct (42.0-52.0) % MCV (80.0-94.0) fL MCH (27.0-31.0) pg MCHC (32.0-36.0) g/dL RDW (12.0-15.0) % Plt Count (130-450) 10^3/uL MPV (7.4-11.4) fL Neut # (Auto) (1.5-6.6) 10^3/uL Lymph # (Auto) (1.5-3.5) 10^3/uL Yell # (Auto) (0.0-1.0) 10^3/uL Eos # (Auto) (0.0-0.7) 10^3/uL Baso # (Auto) (0.0-0.1) 10^3/uL Absolute Nucleated RBC x10^3/uL Nucleated RBC % /100WBC Sodium (135-145) mmol/L Potassium (3.5-5.0) mmol/L Chloride (101-111) mmol/L Carbon Dioxide (21-32) mmol/L Anion Gap (6-13) BUN (6-20) mg/dL Creatinine (0.6-1.2) mg/dL Estimated GFR (MDRD) (>89) Glucose (70-100) mg/dL POC Whole Bld Glucose 170 H 163 H 160 H (70 - 100) mg/dL Calcium (8.5-10.3) mg/dL 04/03/18 04/03/18 04/02/18 Range/Units 06:15 00:32 21:18 WBC (4.8-10.8) x10^3/uL RBC (4.70-6.10) 10^6/uL Hgb (14.0-18.0) g/dL Hct (42.0-52.0) % MCV (80.0-94.0) fL MCH (27.0-31.0) pg MCHC (32.0-36.0) g/dL RDW (12.0-15.0) % Plt Count (130-450) 10^3/uL MPV (7.4-11.4) fL Neut # (Auto) (1.5-6.6) 10^3/uL Lymph # (Auto) (1.5-3.5) 10^3/uL Yell # (Auto) (0.0-1.0) 10^3/uL Eos # (Auto) (0.0-0.7) 10^3/uL Baso # (Auto) (0.0-0.1) 10^3/uL Absolute Nucleated RBC x10^3/uL Nucleated RBC % /100WBC Sodium (135-145) mmol/L Potassium (3.5-5.0) mmol/L Chloride (101-111) mmol/L Carbon Dioxide (21-32) mmol/L Anion Gap (6-13) BUN (6-20) mg/dL Creatinine (0.6-1.2) mg/dL Estimated GFR (MDRD) (>89) Glucose (70-100) mg/dL POC Whole Bld Glucose 152 H 196 H 187 H (70 - 100) mg/dL Calcium (8.5-10.3) mg/dL 04/02/18 04/02/18 04/02/18 Range/Units 17:50 12:28 06:11 WBC (4.8-10.8) x10^3/uL RBC (4.70-6.10) 10^6/uL Hgb (14.0-18.0) g/dL Hct (42.0-52.0) % MCV (80.0-94.0) fL MCH (27.0-31.0) pg MCHC (32.0-36.0) g/dL RDW (12.0-15.0) % Plt Count (130-450) 10^3/uL MPV (7.4-11.4) fL Neut # (Auto) (1.5-6.6) 10^3/uL Lymph # (Auto) (1.5-3.5) 10^3/uL Yell # (Auto) (0.0-1.0) 10^3/uL Eos # (Auto) (0.0-0.7) 10^3/uL Baso # (Auto) (0.0-0.1) 10^3/uL Absolute Nucleated RBC x10^3/uL Nucleated RBC % /100WBC Sodium (135-145) mmol/L Potassium (3.5-5.0) mmol/L Chloride (101-111) mmol/L Carbon Dioxide (21-32) mmol/L Anion Gap (6-13) BUN (6-20) mg/dL Creatinine (0.6-1.2) mg/dL Estimated GFR (MDRD) (>89) Glucose (70-100) mg/dL POC Whole Bld Glucose 218 H 251 H 215 H (70 - 100) mg/dL Calcium (8.5-10.3) mg/dL Impression and Recommendations - Palliative Care Impression: Patient is a 72-year-old gentleman with multiple comorbidities, continues with dementia and on going progressive cognitive problems, now has functional decline. The goal is to maximize his functional status, stabilized his current acute illness of cellulitis and COPD exacerbation. Palliative care to continue on the outpatient basis to provide further support as far as goals of care Recommendations/Counseling Done: 1. Advanced care planning. Continue to have conversations regarding family support, psychosocial stressors, financial stressors and needs for transition home. UNIT TECHNICIAN support and listed regarding transition to snf as well as outside resources. Counseling regarding the role of palliative care in the outpatient setting, if patient does go to local snf will follow at that point. Time Spent: Time spent 30 minutes in counseling regarding the role of palliative care, transition points and anticipatory guidance as well as defining short-term goals and thresholds for care needs
--- NOTE | 2018-04-05 19:06 | PROVIDER PROGRESS NOTE ---
Assessment/Plan - Problem List (1) COPD exacerbation Assessment/Plan: Improving. Continue nebs and O2 prn. (2) Cellulitis Qualifiers: Site of cellulitis: extremity Assessment/Plan: Improving swelling and redness. Poss Dch tomorrow (3) Altered mental state Qualifiers: Altered mental status type: somnolence Qualified Code(s): R40.0 - Somnolence Assessment/Plan: Pt no longer lethargic. He was likely in metabolic encephalopathy from infection. He is somewhat at his baseline of confusion and weakness. Probable DCh soon. 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 Continue carb-controlled diet and glu checks and ss Insulin. (5) Cor pulmonale Assessment/Plan: Echo showed dilated RV and pulmonary HTN, ly from untreated sleeep apnea. Will be resuming his diuretic for anasarca management. (6) HTN (hypertension) Assessment/Plan: BP under fair control on meds. - Current Meds Current Meds: Current Medications Generic Name Dose Route Start Last Admin Trade Name Freq PRN Reason Stop Dose Admin Albuterol/Ipratropium 3 ml 04/02/18 04:00 04/04/18 11:12 Duoneb INH 3 ml Q4H PRN Administration Wheezing Aspirin 81 mg 04/02/18 09:00 04/05/18 10:17 Ecotrin PO 81 mg DAILY FLORIN Administration Bumetanide 2 mg 04/02/18 08:00 04/05/18 14:56 Bumex Inj IVP 2 mg 0800,1400 FLORIN Administration Cholecalciferol 1,000 unit 04/02/18 09:00 04/05/18 10:32 Vitamin D3 PO 1,000 unit DAILY FLORIN Administration Donepezil HCl 5 mg 04/02/18 09:00 04/05/18 10:16 Aricept PO 5 mg DAILY FLORIN Administration Enoxaparin Sodium 40 mg 04/02/18 09:00 04/05/18 10:18 Lovenox SUBQ 40 mg BID FLORIN Administration Famotidine 20 mg 04/02/18 09:00 04/05/18 10:32 Pepcid PO 20 mg DAILY FLORIN Administration Fenofibrate 144 mg 04/02/18 09:00 04/05/18 10:32 Tricor PO 144 mg DAILY FLORIN Administration Ferrous Sulfate 325 mg 04/02/18 09:00 04/05/18 10:32 Feosol PO 325 mg BID FLORIN Administration Finasteride 5 mg 04/02/18 09:00 04/05/18 10:16 Proscar PO 5 mg DAILY FLORIN Administration Acetaminophen 100 mls @ 400 mls/hr 04/02/18 01:30 04/03/18 16:00 Ofirmev IV Infused Q6HR PRN Infusion Pain or Fever > 38C (100.4F) Ampicillin Sodium/Sulbactam 100 mls @ 200 mls/hr 04/03/18 14:00 04/05/18 13:45 Sodium 1.5 gm/ Sodium Chloride IV Infused Q6HR FLORIN Infusion Insulin Aspart 2 - 10 unit 04/03/18 12:00 04/05/18 12:20 Novolog SUBQ 2 unit 0800,1200,1700,2100 FLORIN Administration Protocol Insulin Glargine 16 unit 04/02/18 21:00 04/04/18 21:10 Lantus Solostar SUBQ 16 unit QPM FLORIN Administration Methylprednisolone 40 mg 04/02/18 06:00 04/05/18 14:48 Solu-Medrol (40mg Vial) IVP 40 mg Q8HR FLORIN Administration Montelukast Sodium 10 mg 04/02/18 09:00 04/05/18 10:17 Singulair PO 10 mg DAILY FLORIN Administration Morphine Sulfate 4 mg 04/02/18 01:27 04/04/18 11:40 Morphine IVP 4 mg Q2H PRN Administration Dyspnea Multivitamins 1 tab 04/02/18 09:00 04/05/18 10:32 Theragran PO 1 tab DAILY FLORIN Administration Nystatin 1 applic 04/02/18 12:00 04/05/18 12:19 Nystop TOP 1 applic BID FLORIN Administration Paroxetine HCl 20 mg 04/02/18 09:00 04/05/18 10:17 Paxil PO 20 mg DAILY FLORIN Administration Polyethylene Glycol 17 gm 04/02/18 09:00 04/05/18 10:19 Miralax PO 17 gm DAILY FLORIN Administration Potassium Chloride 20 meq 04/02/18 09:00 04/05/18 10:17 K-Dur PO 20 meq DAILY FLORIN Administration Risperidone 1 mg 04/04/18 21:00 04/04/18 21:08 Risperdal PO 1 mg QPM FLORIN Administration Saccharomyces Boulardii 250 mg 04/02/18 09:00 04/05/18 10:32 Florastor PO 250 mg BID FLORIN Administration Sodium Chloride 10 ml 04/02/18 01:00 04/05/18 10:33 Normal Saline Flush 0.9% IVP 10 ml 0100,0900,1700 FLORIN Administration Sodium Chloride 10 ml 04/02/18 00:15 04/04/18 21:08 Normal Saline Flush 0.9% IVP 10 ml PRN PRN Administration NEEDED PER PROVIDER ORDERS Tamsulosin HCl 0.8 mg 04/02/18 09:00 04/05/18 10:17 Flomax PO 0.8 mg DAILY FLORIN Administration - Lab Result Fish Bone Diagrams: 04/05/18 05:04 04/05/18 05:04 - Additional Planning My Orders: My Active Orders 04/05/18 12:09 Elevate Extremity [RC] UD Miscellaenous Nursing Order [RC] QSHIFT Subjective - Subjective Patient Reports: Resting Comfortably Objective Vital Signs: Vital Signs - 24 hr 04/04/18 04/05/18 04/05/18 19:14 08:11 10:15 Temperature 37.5 C 37.0 C Heart Rate 85 Heart Rate [ 89 73 Monitoring electrodes] Respiratory 16 16 18 Rate Blood Pressure 132/91 H 150/83 H [Right Brachial artery] O2 Saturation 95 97 04/05/18 15:33 Temperature 37.0 C Heart Rate Heart Rate [ 83 Monitoring electrodes] Respiratory 16 Rate Blood Pressure 150/82 H [Right Brachial artery] O2 Saturation 98 Oxygen O2 Source [With Activity] Room air O2 Source [Without Activity] Room air O2 Source Nasal cannula I&O (Last 24 Hrs): Intake and Output Totals x24h 04/03/18 04/04/18 04/05/18 23:59 23:59 23:59 Intake Total 2790 4666 1660 Output Total 2500 4120 1900 Balance 290 546 -240 General: Other HEENT: Atraumatic Neck: Other (Obese) Cardiovascular: Other (Distant heart sounds) Respiratory: No respiratory distress Abdomen: Other (Obese) Extremities: Other (2+ edema and decreasing redness of shins) - Results Results: Laboratory Results WBC 7.1 x10^3/uL (4.8-10.8) 04/05/18 05:04 RBC 3.55 10^6/uL (4.70-6.10) L 04/05/18 05:04 Hgb 10.8 g/dL (14.0-18.0) L 04/05/18 05:04 Hct 32.6 % (42.0-52.0) L 04/05/18 05:04 MCV 91.9 fL (80.0-94.0) 04/05/18 05:04 MCH 30.3 pg (27.0-31.0) 04/05/18 05:04 MCHC 33.0 g/dL (32.0-36.0) 04/05/18 05:04 RDW 14.2 % (12.0-15.0) 04/05/18 05:04 Plt Count 246 10^3/uL (130-450) 04/05/18 05:04 MPV 7.3 fL (7.4-11.4) L 04/05/18 05:04 Neut # (Auto) 6.2 10^3/uL (1.5-6.6) 04/05/18 05:04 Lymph # (Auto) 0.5 10^3/uL (1.5-3.5) L 04/05/18 05:04 [place] # (Auto) 0.4 10^3/uL (0.0-1.0) 04/05/18 05:04 Eos # (Auto) 0.0 10^3/uL (0.0-0.7) 04/05/18 05:04 Baso # (Auto) 0.0 10^3/uL (0.0-0.1) 04/05/18 05:04 Absolute Nucleated RBC 0.00 x10^3/uL 04/05/18 05:04 Nucleated RBC % 0.0 /100WBC 04/05/18 05:04 PT 11.7 secs (9.9-12.6) 04/01/18 22:24 INR 1.0 (0.8-1.2) 04/01/18 22:24 Bld Gas Analysis Time 72304/02/18 07:15 Sample Site LEFT BRACHIAL 04/02/18 07:15 ABG pH 7.34 (7.35-7.45) L 04/02/18 07:15 ABG pCO2 56 mmHg (34-45) H 04/02/18 07:15 ABG pO2 44 mmHg (80-100) L* 04/02/18 07:15 ABG HCO3 29.2 mmol/L (22.0-26.0) H 04/02/18 07:15 ABG Total CO2 30.9 MMOL/L (21.0-29.0) H 04/02/18 07:15 ABG O2 Saturation 77 % (94-98) L* 04/02/18 07:15 ABG Oximetry Spot Check 100 % 04/02/18 07:15 ABG Base Excess 2.4 mmol/L (-2.0-3.0) 04/02/18 07:15 Simeon Test NOT APPLICABLE 04/02/18 07:15 Respiration Rate 23 b/min 04/02/18 07:15 O2 Delivery Device BiPAP 04/02/18 07:15 Vent Mode SYNCHRONOUS/TIMES 04/02/18 07:15 FiO2 32.00 04/02/18 07:15 Tidal Volume 475 mL 04/02/18 07:15 Pressure Support Vent 6 cmH2O 04/02/18 07:15 EPAP 6 cmH2O 04/02/18 07:15 IPAP 12 cmH2O 04/02/18 07:15 Sodium 140 mmol/L (135-145) 04/05/18 05:04 Potassium 4.1 mmol/L (3.5-5.0) 04/05/18 05:04 Chloride 99 mmol/L (101-111) L 04/05/18 05:04 Carbon Dioxide 33 mmol/L (21-32) H 04/05/18 05:04 Anion Gap 8.0 (6-13) 04/05/18 05:04 BUN 52 mg/dL (6-20) H 04/05/18 05:04 Creatinine 1.5 mg/dL (0.6-1.2) H 04/05/18 05:04 Estimated GFR (MDRD) 46 (>89) L 04/05/18 05:04 Glucose 172 mg/dL (70-100) H 04/05/18 05:04 POC Whole Bld Glucose 169 mg/dL (70 - 100) H 04/05/18 16:47 Glycated Hemoglobin 5.5 % (4.6-6.2) 04/02/18 04:35 Estim Average Glucose 111 (70-100) H 04/02/18 04:35 Lactic Acid 0.9 mmol/L (0.5-2.2) 04/01/18 22:24 Calcium 8.9 mg/dL (8.5-10.3) 04/05/18 05:04 Phosphorus 2.2 mg/dL (2.5-4.6) L 04/02/18 04:35 Magnesium 1.8 mg/dL (1.7-2.8) 04/02/18 04:35 Total Bilirubin 0.5 mg/dL (0.2-1.0) 04/01/18 22:24 AST 32 IU/L (10-42) 04/01/18 22:24 ALT 21 IU/L (10-60) 04/01/18 22:24 Alkaline Phosphatase 36 IU/L (42-121) L 04/01/18 22:24 Troponin I < 0.04 ng/mL (<0.49) 04/02/18 04:35 B-Natriuretic Peptide 287 pg/mL (5-100) H 04/01/18 22:24 Total Protein 7.2 g/dL (6.7-8.2) 04/01/18 22:24 Albumin 3.7 g/dL (3.2-5.5) 04/01/18 22:24 Globulin 3.5 g/dL (2.1-4.2) 04/01/18 22:24 Albumin/Globulin Ratio 1.1 (1.0-2.2) 04/01/18 22:24 Lipase 45 U/L (22-51) 04/01/18 22:24 Urine Color YELLOW 04/02/18 02:20 Urine Clarity CLEAR (CLEAR) 04/02/18 02:20 Urine pH 5.5 PH (5.0-7.5) 04/02/18 02:20 Ur Specific [place] 1.015 (1.002-1.030) 04/02/18 02:20 Urine Protein NEGATIVE mg/dL (NEGATIVE) 04/02/18 02:20 Urine Glucose (UA) NEGATIVE mg/dL (NEGATIVE) 04/02/18 02:20 Urine Ketones NEGATIVE mg/dL (NEGATIVE) 04/02/18 02:20 Urine Occult Blood TRACE-INTA (NEGATIVE) 04/02/18 02:20 Urine Nitrite NEGATIVE (NEGATIVE) 04/02/18 02:20 Urine Bilirubin NEGATIVE (NEGATIVE) 04/02/18 02:20 Urine Urobilinogen 0.2 (NORMAL) E.U./dL (NORMAL) 04/02/18 02:20 Ur Leukocyte Esterase NEGATIVE (NEGATIVE) 04/02/18 02:20 Urine RBC 0-5 /HPF (0-5) 04/02/18 02:20 Urine WBC 0-3 /HPF (0-3) 04/02/18 02:20 Ur Epithelial Cells None Seen /HPF (<= Few) 04/02/18 02:20 Ur Squamous Epith Cells NONE SEEN (<= Few) 04/02/18 02:20 Urine Bacteria None Seen /HPF (None Seen) 04/02/18 02:20 Urine Culture Comments NOT INDICATED 04/02/18 02:20 - Procedures Procedures: Procedures SPINAL TAP (11/18/13) VENOUS CATHETERIZATION NEC (11/18/13) ABX Reporting Has patient been on IV antibiotics over the past 48 hours?: Yes
[2018-04-05] MEDS: INSULIN GLARGINE 300 UNIT/3 ML PEN SUBQ SCH (21:12)
[2018-04-05] MEDS: risperiDONE 1 MG TABLET PO SCH (21:13)
[2018-04-06] MEDS: SODIUM CHLORIDE FLUSH 0.9% 10 ML SYRINGE IVP SCH ×2 (00:28→09:28)
[2018-04-06] MEDS: AMPICILLIN/SULBACTAM 1.5 GM in SODIUM CHLORIDE 0.9% MINIBAG 100 ML IV SCH ×3 (00:28→13:35)
[2018-04-06] MEDS: methylPREDNISolone SUCCINATE 40 MG/ML VIAL IVP SCH ×2 (06:29→14:38)
[2018-04-06] MEDS: SODIUM CHLORIDE FLUSH 0.9% 10 ML SYRINGE IVP PRN (06:29)
[2018-04-06] MEDS: INSULIN ASPART 300 UNIT/3 ML PEN SUBQ SCH ×2 (08:18→12:03)
[2018-04-06] MEDS ORDERED: DOCUSATE SODIUM 250 MG CAPSULE PO SCH (09:00)
[2018-04-06] MEDS ORDERED: SENNA 8.6 MG TABLET PO SCH (09:00)
[2018-04-06] MEDS: POTASSIUM CHLORIDE 20 MEQ TABLET PO SCH (09:23)
[2018-04-06] MEDS: NYSTATIN POWDER 15 GM TOP SCH (09:23)
[2018-04-06] MEDS: ASPIRIN EC 81 MG TABLET PO SCH (09:24)
[2018-04-06] MEDS: FAMOTIDINE 20 MG TABLET PO SCH (09:24)
[2018-04-06] MEDS: DONEPEZIL 5 MG TABLET PO SCH (09:24)
[2018-04-06] MEDS: MONTELUKAST 10 MG TABLET PO SCH (09:24)
[2018-04-06] MEDS: FERROUS SULFATE 325 MG TABLET PO SCH (09:24)
[2018-04-06] MEDS: FINASTERIDE 5 MG TABLET PO SCH (09:24)
[2018-04-06] MEDS: PARoxetine 10 MG TABLET PO SCH (09:25)
[2018-04-06] MEDS: FENOFIBRATE 48 MG TABLET PO SCH (09:25)
[2018-04-06] MEDS: TAMSULOSIN 0.4 MG CAPSULE PO SCH (09:25)
[2018-04-06] MEDS: MULTIVITAMIN TABLET PO SCH (09:25)
[2018-04-06] MEDS: CHOLECALCIFEROL 1,000 UNIT TABLET PO SCH (09:25)
[2018-04-06] MEDS: POLYETHYLENE GLYCOL 3350 17 GM PACKET PO SCH (09:26)
[2018-04-06] MEDS: BUMETANIDE 1 MG/4 ML VIAL IVP SCH ×2 (09:26→14:38)
[2018-04-06] MEDS: SACCHAROMYCES BOULARDII 250 MG CAPSULE PO SCH (09:28)
[2018-04-06] MEDS: ENOXAPARIN 40 MG/0.4 ML SYRINGE SUBQ SCH (09:28)
[2018-04-06] MEDS: IPRATROPIUM/ALBUTEROL 3 ML NEB INH PRN (10:30)
--- NOTE | 2018-04-06 15:38 | Discharge Plan ---
"[facility] - Discharge Plan And Transition Orders Disposition: 03 SNF DC/Xfer Condition: Stable Allergies and Adverse Reactions: Allergies Allergy/AdvReac Type Severity Reaction Status Date / Time bacitracin Allergy Severe Unknown Verified 04/01/18 22:08 [From Neosporin ([id number])] bacitracin zinc * Allergy Severe Unknown Verified 04/01/18 22:08 [From Neosporin ([id number])] latex Allergy Severe Unknown Verified 04/01/18 22:08 lovastatin Allergy Severe Unknown Verified 04/01/18 22:08 neomycin sulfate * Allergy Severe Unknown Verified 04/01/18 22:08 [From Neosporin ([id number])] polymyxin B Allergy Severe Unknown Verified 04/01/18 22:08 [From Neosporin ([id number])] pravastatin sodium * Allergy Severe Unknown Verified 04/01/18 22:08 [From Pravachol] trazodone Allergy Unknown Verified 04/01/18 22:08 - SNF / [facility] Transition Orders Admit to (Facility): [facility] Under the care of (Name): Dr Carlitos Ozuna Discharge Diagnosis: 1) Cellulitis 2) COPD exacerbation 3) Altered metal status 4) IDDM 5) COPD exacerbation 6) Lewy Body dementia 7) CKD,stage 3 8) Sleep apnea, untreated, does not tolerate CPAP 9) Cor Pulmonale and pulmonary HTN by Echo 10) HTN 11) Morbid obesity Medicare Certification Statement: I certify that [facility] is medically necessary on a continuing basis for any of the conditions for which she/he is receiving care during hospitalization. Notify PCP of admission and forward orders to primary provider for signature. Weight on admission and: Daily Call PCP immediately if weight increases by: 2 kg (if gains 2 kg over 1 day) Other Notification Orders: Call PCP immediately if patient develops dyspnea, chest pain/tightness or edema. House Bowel Program: Yes Additional Bowel Program Orders: If no BM after 2 days, nurse may give M.O.M. 30ml PO PRN and/or ducolax Supp 1 PA and/or RAMSES 250mg P.O., and/or senna 1-2 tabs PO. On day 3 nurse may give repeat above order until residents constipation is resolved. Annual Influenza Vaccine (between Mar 26 and October 23): Yes Two-step PPD per [facility] [phone] or approved exception documents: Yes Treatments & Other Orders: Daily PT and OT Lab Tests or X-ray Orders: weekly BMP and Mg Medication Orders: PLEASE REFER TO THE DISCHARGE MEDICATION LIST. Insulin Orders?: Yes - Medications New Prescriptions: Nystatin [Nystop] 1 applic TOP BID #1 bottle Prednisone 5 mg PO DAILY #30 tablet predniSONE [Prednisone] 20 mg PO DAILY 8 Days #20 tablet Saccharomyces Boulardii [Florastor] 250 mg PO BID #28 capsule Sulfamethox/Trimeth 800/160 [Bactrim Ds 800/160] 1 each PO BID #14 tablet - Diet Type: Geriatric Liquids: Thin May have monthly special meal: Yes - Therapies | Activity Therapy: Evaluation | Treat if indicated: PT, OT Rehabilitation Potential: Maximize functional status Activity: Activity as Tolerated Weight Bearing: Full Weight Assistance Devices: Walker Follow Up: See your PCP after discharge from [facility] Insulin Orders - SNF Basal | Correction | Custom Orders: Diagnosis: Diabetes Initiate hypo and hyperglycemia protocols for BG <70 and BG >375. May check BG prn for signs/symptoms of dysglycemia. Frequency of BG checks: [AC/HS] Basal Insulin: [x] Lantus 100 units / ml inject subq as follows: 16 U subq qpm Correction Insulin: - Select the type of insulin below [Choose: Novolog/Humalog]100 units /ml insulin inject subq per orders indicate below [] LOW DOSE [X] MODERATE DOSE [] MODERATE/HIGH DOSE [] HIGH DOSE GB UNITS GB UNITS GB UNITS GB UNITS 61-140 0 UNITS 61-140 0 UNITS 61-140 0 UNITS 61-140 0 UNITS 141-175 1 UNITS 141-175 1 UNITS 141-175 2 UNITS 141-175 3 UNITS 176-225 2 UNITS 176-225 3 UNITS 176-225 4 UNITS 176-225 5 UNITS 226-275 3 UNITS 226-275 5 UNITS 226-275 6 UNITS 226-275 7 UNITS 276-325 4 UNITS 276-325 7 UNITS 276-325 8 UNITS 276-325 9 UNITS 326-375 5 UNITS 326-375 9 UNITS 326-375 10 UNITS 326-375 11 UNITS >375 CONTACT MD >375 CONTACT MD >375 CONTACT MD >375 CONTACT MD"
[2018-04-06 16:21] VITALS: BP 142/89
--- NOTE | 2018-04-17 12:28 | DISCHARGE SUMMARY ---
Physician: Josselyn Shaffer MD DATE OF ADMISSION: 04/02/2018 DATE OF DISCHARGE: 04/06/2018 HISTORY OF PRESENT ILLNESS: This is a 72-year-old white male with a history of obesity, diabetes, recurrent leg cellulitis, COPD, prior COPD exacerbations with pneumonitis requiring ICU hospitalization, hypertension, sleep apnea that is untreated since he does not tolerate a CPAP mask, history of venous stasis, and dementia. The patient presented with a 2-3 day history of worsening confusion, not being cooperative with taking his meals and pills, which the administers to him since he mostly lives in a recliner chair, and 2 days of shortness of breath. He was admitted to the ICU for desaturations under 90%, requiring BiPAP, and recurrent cellulitis of the lower extremities. HOSPITAL COURSE AND DISCHARGE DIAGNOSES 1. Cellulitis. The patient's shins were red, warm, and edematous. He was started on empiric IV antibiotics. There was an open wound to culture, and it grew Staph aureus and Enterobacter cloacae. Blood cultures were done, but were negative. The patient had clinical improvement in cellulitis before being transferred to [facility] for rehab with additional p.o. antibiotics. 2. Chronic obstructive pulmonary disease exacerbation. The patient had significant poor air movement and ventilation on admission. His initial blood gas showed a pH of 7.34, pCO2 of 56, pO2 of 44, and bicarbonate of 29. He required BiPAP in the ICU, which was eventually titrated to nasal cannula oxygen. He was also on IV steroids, nebulizers, and had improvement in his respiratory status at the time of discharge, being able to speak without difficulty. 3. Altered mental status. The patient's initial obtundation was felt to be from his infection (cellulitis). With treatment of his infection, he returned to his baseline mental status, which was communicating in short sentences only, and intermittent confusion related to his dementia (see below). 4. Insulin-dependent diabetes. Patient's presenting blood glucose was 190, and there was no elevation of anion gap. He was placed on a sliding scale insulin, first with n.p.o. status, then he began eating a carb controlled diet. His A1c was measured at 5.5, indicating excellent control. 5. Lewy body dementia. The reported that the patient has had a significant decline in alertness, cognition, and speech over the last 2 years. The patient was at his baseline at discharge, which was communicating in short sentences, occasionally appropriately, occasionally confused and with garbled speech. He did recognize his and understood that he was being transferred to SNF for rehab. 6. Chronic kidney disease, stage 3. The patient's creatinine was 1.9. At discharge, the creatinine was 1.5. 7. Sleep apnea, untreated; the patient does not tolerate CPAP. The patient required BiPAP initially. When he was not obtunded, he was transitioned to nasal cannula, supplemental oxygen, but no CPAP was tried because of this history. 8. Cor pulmonale with pulmonary hypertension by Echo. The patient underwent an Echo showing LVH with preserved LVEF, but moderately dilated right ventricle with depressed RV function and PA pressure of 47 mmHg. This is probably multifactorial and caused by his obesity, hypoventilation from sleep apnea, and underlying chronic obstructive pulmonary disease. 9. Hypertension. The patient's home medications were continued, and blood pressure was under control. 10. Morbid obesity. The patient's BMI is 41. LABS AND IMAGING: Reviewed and summarized above. ALLERGIES 1. NEOSPORIN. 2. LATEX. 3. LOVASTATIN. 4. PRAVASTATIN. 5. TRAZODONE. MEDICATIONS AT TIME OF DISCHARGE 1. Albuterol nebulizers q. 4-h p.r.n. 2. ProAir inhaler q. 4-h p.r.n. 3. Amlodipine 5 mg daily. 4. Vitamin C 500 mg daily. 5. Baby aspirin daily. 6. Vitamin D3 1000 units daily. 7. Colace 250 mg b.i.d. 8. Donepezil 5 mg daily. 9. Fenofibrate 160 mg daily. 10. Iron 325 mg b.i.d. 11. Proscar 5 mg daily. 12. Glucotrol 5 mg daily. 13. Insulin Sliding scale, NovoLog, Lantus 6 units every p.m. 14. Singulair 10 mg daily. 15. Multivitamin daily. 16. Omeprazole 40 mg daily. 17. Paxil 20 mg daily. 18. Potassium chloride 20 mEq daily. 19. Tamsulosin 0.8 mg daily. 20. Demadex 60 mg b.i.d. 21. Tylenol p.r.n. 22. Nystatin topical powder b.i.d. p.r.n. 23. Prednisone with a tapering schedule. 24. Trimethoprim sulfa, 1 tablet b.i.d. for 7 days. 25. Florastor 250 b.i.d. for 14 days. CONDITION AT DISCHARGE: Stable but poor. PHYSICAL EXAMINATION VITAL SIGNS: Stable. Blood pressure 142/89, pulse of 65. Afebrile. Room air saturation 98%. HEENT: Unremarkable. NECK: Without JVD, but he is obese. CHEST: Had good air movement and was clear. HEART: Heart sounds are distant. ABDOMEN: Obese, distended. I cannot rule out ascites or organomegaly. EXTREMITIES: 1+ edema to the knees. Venous stasis changes. There is no longer any warmth or redness of the anterior shins. NEUROLOGIC: He is demented. CODE STATUS: DNR. FOLLOWUP: This will be determined after his rehab stay at [facility]. Time required to complete this entire dictation, discharge summary, orders for SNF, chart review, review of discharge with family: 60 minutes. TD: 04/17/2018 11:27 NELI
== END 2018-04-06 17:43 | DRG 602 ==
LOC: EDUNIT# → ED 22:06 → ICU 04-02 00:15 → MS2 04-04 19:20
PROVIDERS: ADMIT Internal Medicine; ATTEND Internal Medicine
DX: L03.115 Cellulitis of right lower limb (principal); R06.03 Acute respiratory distress; R41.0 Disorientation, unspecified; G93.41 Metabolic encephalopathy; I10 Essential (primary) hypertension; J44.1 Chronic obstructive pulmonary disease with (acute) exacerbation; Z68.41 Body mass index [BMI] 40.0-44.9, adult; E11.9 Type 2 diabetes mellitus without complications; L03.116 Cellulitis of left lower limb; I12.9 Hypertensive chronic kidney disease with stage 1 through stage 4 chronic kidney disease, or unspecified chronic kidney disease; E11.22 Type 2 diabetes mellitus with diabetic chronic kidney disease; N18.3 Chronic kidney disease, stage 3 (moderate); G47.30 Sleep apnea, unspecified; N40.1 Benign prostatic hyperplasia with lower urinary tract symptoms; N39.498 Other specified urinary incontinence; B95.61 Methicillin susceptible Staphylococcus aureus infection as the cause of diseases classified elsewhere; B96.89 Other specified bacterial agents as the cause of diseases classified elsewhere; G31.83 Neurocognitive disorder with Lewy bodies; F02.80 Dementia in other diseases classified elsewhere, unspecified severity, without behavioral disturbance, psychotic disturbance, mood disturbance, and anxiety; I27.23 Pulmonary hypertension due to lung diseases and hypoxia; E66.01 Morbid (severe) obesity due to excess calories; Z91.19 Patient's noncompliance with other medical treatment and regimen; E87.6 Hypokalemia; Z66 Do not resuscitate; E11.51 Type 2 diabetes mellitus with diabetic peripheral angiopathy without gangrene; Z79.82 Long term (current) use of aspirin; Z79.891 Long term (current) use of opiate analgesic; Z79.4 Long term (current) use of insulin; Z79.52 Long term (current) use of systemic steroids; Z79.51 Long term (current) use of inhaled steroids; Z87.01 Personal history of pneumonia (recurrent); Z87.891 Personal history of nicotine dependence
CPT/HCPCS: 36415; 36600; 71045; 80048; 80053; 81001; 81599; 82803; 83036; 83605; 83690; 83735; 83880; 84100; 84484; 85025; 85610; 87040; 87070; 87077; 87086; 87150; 87181; 87205; 93005; 93306; 94640; 94660; 96365; 96372; 96375; 99222; 99232; 99284; 99285

== ENCOUNTER 2018-04-06 17:41 | Outpatient (CLI) | payer MEDICARE, OTHER | END 2018-04-06 17:42 | LOC: EMS 17:41 | PROVIDERS: ATTEND Surgery | DX: R41.0 Disorientation, unspecified (principal); E66.01 Morbid (severe) obesity due to excess calories | CPT/HCPCS: A0425; A0428 ==

== ENCOUNTER 2018-04-07 10:20 | Outpatient (CLI) | payer MEDICARE, OTHER | END 2018-04-07 10:21 | disposition critical access hospital (66) | LOC: EMS 10:20 | PROVIDERS: ATTEND Surgery | DX: R41.82 Altered mental status, unspecified (principal); R11.10 Vomiting, unspecified; R73.09 Other abnormal glucose | CPT/HCPCS: A0425; A0429 ==

== ENCOUNTER 2018-04-07 10:27 | Inpatient (IN) | payer MEDICARE, OTHER ==
--- NOTE | 2018-04-07 10:47 | ED Physician Documentation ---
PD HPI ALTERED MENTAL STATUS - Stated complaint Stated Complaint: UNRESPONSIVE - Chief complaint Chief Complaint: Neuro - History obtained from History obtained from: Family, EMS, Caregiver - History of Present Illness Timing - onset: Today (The patient was just discharged from our hospital yesterday after stay for COPD exacerbation, altered mentation, leg cellulitis. He had improved enough and was interacting well. His says he did well going over to [facility] yesterday and had dinner and was talking with her last night. This morning he is poorly responsive. Caregivers from [facility] state he vomited twice. He was poorly interacting. There is no report of change in medicines per se. He is not in any narcotic medicines by his MAR. He is brought to the emergency room minimally interactive with just stirring to sternal rub.) Timing - details: Abrupt onset, Still present Quality / character: Less responsive Associated symptoms: No: Fever, Dyspnea, Cough Review of Systems Unable to obtain: Unresponsive, Other (info from ) Constitutional: denies: Fever Cardiac: denies: Chest pain / pressure GI: reports: Vomiting (twice this morning, per [facility] denies: Diarrhea Neurologic: reports: Generalized weakness, Altered mental status PD PAST MEDICAL HISTORY - Past Medical History Cardiovascular: Congestive heart failure (diasotolic), Hypertension, Coronary artery disease Respiratory: Asthma, COPD, Shortness of breath, Sleep apnea Neuro: Dementia (see's neurologist; has suzanne body), Tremors (recently started on trial of carbidopa/levidopa 1/2 25/100 mg; off currently) Endocrine/Autoimmune: Type 2 diabetes : Benign prostate hypertrophy, Incontinence HEENT: None Psych: Depression, Anxiety, Claustrophobia Musculoskeletal: Osteoarthritis Derm: Psoriasis - Past Surgical History Past Surgical History: Yes General: Appendectomy, Hiatal hernia repair Ortho: Other - Present Medications Home Medications: Ambulatory Orders Medication Instructions Recorded Confirmed Aspirin [Aspirin EC] 81 mg PO DAILY 11/18/13 04/07/18 Cholecalciferol (Vitamin D3) 1,000 unit PO DAILY 11/18/13 04/07/18 [Vitamin D3] Ferrous Sulfate [Iron] 325 mg PO BID 11/18/13 04/07/18 Finasteride [Proscar] 5 mg PO DAILY 11/18/13 04/07/18 Montelukast Sodium [Singulair] 10 mg PO DAILY 11/18/13 04/07/18 Multivitamin [Multi-Vitamin Daily] 1 each PO DAILY 11/18/13 04/07/18 Omeprazole [PriLOSEC] 40 mg PO QDAC 11/18/13 04/07/18 Paroxetine HCl [Paxil] 20 mg PO DAILY 11/18/13 04/07/18 Torsemide [Demadex] 60 mg PO BID 11/18/13 04/07/18 glipiZIDE [Glucotrol] 5 mg PO 0730 11/18/13 04/07/18 amLODIPine [Norvasc] 5 mg PO DAILY 01/04/16 04/07/18 Donepezil HCl 5 mg PO DAILY 11/24/16 04/07/18 Fenofibrate 160 mg PO DAILY 11/24/16 04/07/18 Potassium Chloride 20 meq PO DAILY 11/24/16 04/07/18 Tamsulosin HCl 0.8 mg PO DAILY 11/24/16 04/07/18 Acetaminophen [Tylenol] 650 mg PO Q4HR PRN #0 tablet 11/28/16 04/07/18 Albuterol 2.5 mg INH Q4H PRN 04/02/18 04/07/18 Albuterol Sulfate [Proair Hfa 2 puffs INH Q4H PRN 04/02/18 04/07/18 Inhaler] Ascorbic Acid [Vitamin C] 500 mg PO DAILY 04/02/18 04/07/18 Docusate Sodium 250Mg Capsule 250 mg PO BID 04/02/18 04/07/18 [Colace 250Mg Capsule] Insulin Aspart [Novolog Flexpen] 1 - 5 unit SUBQ ACHS 04/02/18 04/07/18 Insulin Glargine [Lantus Solostar] 6 units SUBQ QPM 04/02/18 04/07/18 Nystatin [Nystop] 1 applic TOP BID #1 bottle 04/06/18 04/07/18 Prednisone 5 mg PO DAILY #30 tablet 04/06/18 04/07/18 Saccharomyces Boulardii [Florastor] 250 mg PO BID #28 capsule 04/06/18 04/07/18 Sulfamethox/Trimeth 800/160 1 each PO BID #14 tablet 04/06/18 04/07/18 [Bactrim Ds 800/160] predniSONE [Prednisone] 20 mg PO DAILY 8 Days #20 tablet 04/06/18 04/07/18 - Allergies Allergies/Adverse Reactions: Allergies Allergy/AdvReac Type Severity Reaction Status Date / Time bacitracin Allergy Severe Unknown Verified 04/07/18 10:46 [From Neosporin ([id number])] bacitracin zinc * Allergy Severe Unknown Verified 04/07/18 10:46 [From Neosporin ([id number])] latex Allergy Severe Unknown Verified 04/07/18 10:46 lovastatin Allergy Severe Unknown Verified 04/07/18 10:46 neomycin sulfate * Allergy Severe Unknown Verified 04/07/18 10:46 [From Neosporin ([id number])] polymyxin B Allergy Severe Unknown Verified 04/07/18 10:46 [From Neosporin ([id number])] pravastatin sodium * Allergy Severe Unknown Verified 04/07/18 10:46 [From Pravachol] trazodone Allergy Unknown Verified 04/07/18 10:46 - Social History Does the pt smoke?: No Smoking Status: Never smoker Does the pt drink ETOH?: No Does the pt have substance abuse?: No - Immunizations Immunizations are current?: Yes - POLST Patient has POLST: Yes PD ED PE NORMAL - Vitals Vital signs reviewed: Yes - General General: Well developed/nourished (obese, poor muscle tone), Other (He is moaning only to sternal rub. He is moving both feet back and forth at times on his own. He does have withdrawal to sensation on the feet. The pupils are equal and pinpoint constricted. He has adequate oxygenation and does not appear to be in any respiratory distress.) - HEENT HEENT: Pharynx benign - Neck Neck: Supple, no meningeal sign, No adenopathy - Cardiac Cardiac: RRR, No murmur - Respiratory Respiratory: No: Clear bilaterally (no coarse sounds, but diffuse mild exp wheezes. ) - Abdomen Abdomen: Soft, Non distended, Other (obese) - Derm Derm: Warm and dry, Other (chronic stasis changes both legs. There is faint redness right anterior lower leg, well within previous skin marker lines. ) - Extremities Extremities: Other (2+ edema in both legs, appears chronic. ) Results - Vitals Vitals: Vital Signs - 24 hr 09/04/07/18 04/07/18 10:28 11:19 11:43 Temperature 36.4 C L Heart Rate 82 76 77 Respiratory 16 20 23 Rate Blood Pressure 126/83 H 110/68 O2 Saturation 100 97 04/07/18 04/07/18 04/07/18 13:46 13:50 14:51 Temperature Heart Rate 79 87 101 H Respiratory 21 23 20 Rate Blood Pressure 136/89 H 144/101 H 116/88 H O2 Saturation 97 97 98 Oxygen O2 Source [With Activity] Room air O2 Source [Without Activity] Room air O2 Source Nasal cannula - Labs Labs: Laboratory Tests 04/07/18 04/07/18 04/07/18 11:18 11:18 11:18 WBC 13.8 H RBC 4.62 L Hgb 13.9 L Hct 41.7 L MCV 90.2 MCH 30.1 MCHC 33.3 RDW 13.8 Plt Count 306 MPV 7.9 Neut # (Auto) 12.1 H Lymph # (Auto) 0.7 L [place] # (Auto) 0.9 Eos # (Auto) 0.0 Baso # (Auto) 0.0 Absolute Nucleated RBC 0.01 Nucleated RBC % 0.0 Bld Gas Analysis Time Sample Site ABG pH ABG pCO2 ABG pO2 ABG HCO3 ABG Total CO2 ABG O2 Saturation ABG Oximetry Spot Check ABG Base Excess Simeon Test O2 Delivery Device O2 Liters/Min Sodium 147 H Potassium 3.2 L Chloride 86 L Carbon Dioxide > 45 H* Anion Gap 16.0 H BUN 68 H Creatinine 1.8 H Estimated GFR (MDRD) 37 L Glucose 186 H Lactic Acid 1.5 Calcium 9.7 Magnesium 2.2 Total Bilirubin 1.5 H AST 38 ALT 34 Alkaline Phosphatase 37 L Ammonia Total Protein 6.3 L Albumin 3.3 Globulin 3.0 Albumin/Globulin Ratio 1.1 Lipase 79 H Urine Color Urine Clarity Urine pH Ur Specific [place] Urine Protein Urine Glucose (UA) Urine Ketones Urine Occult Blood Urine Nitrite Urine Bilirubin Urine Urobilinogen Ur Leukocyte Esterase Ur Microscopic Review Urine Culture Comments 04/07/18 04/07/18 04/07/18 11:37 11:44 14:24 WBC RBC Hgb Hct MCV MCH MCHC RDW Plt Count MPV Neut # (Auto) Lymph # (Auto) [place] # (Auto) Eos # (Auto) Baso # (Auto) Absolute Nucleated RBC Nucleated RBC % Bld Gas Analysis Time 1137 Sample Site LEFT RADIAL ABG pH 7.54 H ABG pCO2 58 H ABG pO2 88 ABG HCO3 48.7 H ABG Total CO2 50.5 H* ABG O2 Saturation 97 ABG Oximetry Spot Check 98 ABG Base Excess 22.2 H Simeon Test POSITIVE O2 Delivery Device NASAL CANNULA O2 Liters/Min 4.00 Sodium Potassium Chloride Carbon Dioxide Anion Gap BUN Creatinine Estimated GFR (MDRD) Glucose Lactic Acid Calcium Magnesium Total Bilirubin AST ALT Alkaline Phosphatase Ammonia 13.0 Total Protein Albumin Globulin Albumin/Globulin Ratio Lipase Urine Color YELLOW Urine Clarity CLEAR Urine pH 7.0 Ur Specific [place] 1.010 Urine Protein NEGATIVE Urine Glucose (UA) NEGATIVE Urine Ketones NEGATIVE Urine Occult Blood NEGATIVE Urine Nitrite NEGATIVE Urine Bilirubin NEGATIVE Urine Urobilinogen 1 (NORMAL) Ur Leukocyte Esterase NEGATIVE Ur Microscopic Review NOT INDICATED Urine Culture Comments NOT INDICATED - Rads (name of study) head CT Radiology: Prelim report reviewed (no acute changes) chest xray Radiology: Prelim report reviewed (low lung volumes; no infiltrates. no acute changes.) PD MEDICAL DECISION MAKING - ED course Complexity details: re-evaluated patient (His head CT appeared without any acute changes. Blood tests are similar to baseline. He does not appear to be hyper car back. He is not hypoxic. His blood sugar is adequate. His eyes did appear pinpoint and he was poorly responsive. He was given some IV fluids. I do not have the cause of his symptoms at this time. He is not on any narcotics. However we did try some Narcan 0.4 mg in that did seem to rouse him a little bit after about 10-15 minutes. It did not appear direct correlation but certainly did improve more than he had over the last couple of hours. He was given Decadron as well as he had been on steroids at a higher dose in the hospital. His blood pressure was good though so does not seem addisonian per se. I talked with the hospitalist and we will have the patient back in the hospital for observation.), considered differential (He has less responsiveness and pinpoint pupils but there are no narcotics on his MAR at [facility]. He is poorly responsive and only to sternal rub. He is not hypoventilating. We will do CT scan and lab tests. Not clear the etiology of his altered mentation at this point.), d/w family, d/w acquisition consultant (I talked with the hospitalist given his altered mentation having just been in the hospital. They will have him back in the hospital for observation to the evaluate his medications and look for other problems. Patient is interacting a bit more now here in the ER whether from time or fluids or Narcan.) - Sepsis Event Vital Signs: Vital Signs - 24 hr 04/07/18 04/07/18 04/07/18 10:28 11:19 11:43 Temperature 36.4 C L Heart Rate 82 76 77 Respiratory 16 20 23 Rate Blood Pressure 126/83 H 110/68 O2 Saturation 100 97 04/07/18 04/07/18 04/07/18 13:46 13:50 14:51 Temperature Heart Rate 79 87 101 H Respiratory 21 23 20 Rate Blood Pressure 136/89 H 144/101 H 116/88 H O2 Saturation 97 97 98 Oxygen O2 Source [With Activity] Room air O2 Source [Without Activity] Room air O2 Source Nasal cannula Departure - Departure Disposition: ED Place in Observation Clinical Impression: Altered mental status Qualifiers: Altered mental status type: somnolence Qualified Code(s): R40.0 - Somnolence COPD (chronic obstructive pulmonary disease) Qualifiers: COPD type: unspecified COPD Qualified Code(s): J44.9 - Chronic obstructive pulmonary disease, unspecified Condition: Stable Record reviewed to determine appropriate education?: Yes
[2018-04-07] MEDS ORDERED: IPRATROPIUM/ALBUTEROL 3 ML NEB INH STA (11:12)
[2018-04-07 11:51] LABS: BASOPHILS % (AUTO) 0.1 %; HGB - HEMOGLOBIN 13.9 g/dL (14.0-18.0); LYMPHOCYTES # (AUTO) 0.7 10^3/uL (1.5-3.5); LYMPHOCYTES % (AUTO) 4.9 %; MEAN CORPUSCULAR HEMOGLOBIN 30.1 pg (27.0-31.0); MEAN CORPUSCULAR HGB CONC 33.3 g/dL (32.0-36.0); MEAN CORPUSCULAR VOLUME 90.2 fL (80.0-94.0); MEAN PLATELET VOLUME 7.9 fL (7.4-11.4); MONOCYTES # (AUTO) 0.9 10^3/uL (0.0-1.0); MONOCYTES % (AUTO) 6.8 %; NEUTROPHILS # (AUTO) 12.1 10^3/uL (1.5-6.6); NEUTROPHILS % (AUTO) 88.2 %; PLT - PLATELET COUNT 306 10^3/uL (130-450); RED BLOOD COUNT 4.62 10^6/uL (4.70-6.10); RED CELL DISTRIBUTION WIDTH 13.8 % (12.0-15.0); WHITE BLOOD COUNT 13.8 x10^3/uL (4.8-10.8)
[2018-04-07 11:54] LABS: ALBUMIN 3.3 g/dL (3.2-5.5); ALBUMIN/GLOBULIN RATIO 1.1 (1.0-2.2); ALKALINE PHOSPHATASE 37 IU/L (42-121); ALT ALANINE AMINOTRANSFERASE 34 IU/L (10-60); AST ASPARTATE AMINOTRANSFERASE 38 IU/L (10-42); BILIRUBIN,TOTAL 1.5 mg/dL (0.2-1.0); BUN - BLOOD UREA NITROGEN 68 mg/dL (6-20); CALCIUM 9.7 mg/dL (8.5-10.3); CARBON DIOXIDE - CO2 > 45 mmol/L (21-32); CHLORIDE 86 mmol/L (101-111); CREATININE 1.8 mg/dL (0.6-1.2); GFR - MDRD 37 (>89); GLUCOSE 186 mg/dL (70-100); LIPASE 79 U/L (22-51); MAGNESIUM 2.2 mg/dL (1.7-2.8); SODIUM 147 mmol/L (135-145); TOTAL PROTEIN 6.3 g/dL (6.7-8.2)
[2018-04-07 11:55] LABS: ABG HCO3 48.7 mmol/L (22.0-26.0); ABG PCO2 58 mmHg (34-45); ABG PH 7.54 (7.35-7.45); ABG PO2 88 mmHg (80-100)
[2018-04-07 11:56] LABS: ABG BASE EXCESS 22.2 mmol/L (-2.0-3.0); ABG OXYGEN SATURATION 97 % (94-98); ALLEN TEST POSITIVE
[2018-04-07 11:57] LABS: ABG TCO2 50.5 MMOL/L (21.0-29.0)
[2018-04-07 12:04] LABS: BILIRUBIN,URINE NEGATIVE (NEGATIVE); GLUCOSE, URINE (UA) NEGATIVE (NEGATIVE); KETONES,URINE (UA) NEGATIVE (NEGATIVE); LEUKOCYTE ESTERASE, URINE NEGATIVE (NEGATIVE); NITRITE,URINE NEGATIVE (NEGATIVE); OCCULT BLOOD,URINE NEGATIVE (NEGATIVE); PROTEIN,URINE NEGATIVE (NEGATIVE); UROBILINOGEN,URINE 1 (NORMAL) E.U./dL (NORMAL)
[2018-04-07 12:07] LABS: CLARITY,URINE CLEAR (CLEAR)
--- NOTE | 2018-04-07 12:17 | XRAY Report ---
Reason: unresponsive today Procedure Date: 04/07/2018 Accession Number: [id number] / [id number] Procedure: XR - Chest 1 View X-Ray CPT Code: 46842 FULL RESULT: EXAM: CHEST RADIOGRAPHY EXAM DATE: 04/07/2018 12:03 PM. CLINICAL HISTORY: Unresponsive today. COMPARISON: Chest 11/24/2016. TECHNIQUE: 1 view. FINDINGS: Lungs/Pleura: No focal opacities evident. No pleural effusion. No pneumothorax. There are low lung volumes. Mediastinum: Stable cardiomegaly. IMPRESSION: Low lung volumes and stable cardiomegaly. Otherwise negative portable chest. RADIA
--- NOTE | 2018-04-07 13:10 | CT Report ---
Reason: unresponsive today. Procedure Date: 04/07/2018 Accession Number: [id number] / [id number] Procedure: CT - Head W/O CPT Code: FULL RESULT: EXAM: CT HEAD EXAM DATE: 04/07/2018 12:19 PM. CLINICAL HISTORY: Unresponsive today. COMPARISON: Head CT 03/15/2015. TECHNIQUE: Multiaxial CT images were obtained from the foramen magnum to the vertex. Reformats: Coronal. IV contrast: None. In accordance with CT protocol optimization, one or more of the following dose reduction techniques were utilized for this exam: automated exposure control, adjustment of mA and/or KV based on patient size, or use of iterative reconstructive technique. FINDINGS: Parenchyma: No intraparenchymal hemorrhage. No evidence of mass, midline shift, or CT findings of infarction. Pina-white differentiation is distinct. Age-related parenchymal volume loss similar to before with ex vacuo dilation of ventricles. Mild periventricular low attenuating foci. Stable finding. Likely chronic sequela of microvascular angiopathy. Extraaxial Spaces: Normal for age. No subdural or epidural collections identified. Ventricles: Otherwise normal in size and position. Sinuses and Orbits: Imaged paranasal sinuses, orbits, and mastoids show no significant abnormality. Bones: No evidence of fracture or calvarial defect. IMPRESSION: Stable parenchymal volume loss and chronic sequela of microvascular angiopathy. No evidence of acute intracranial process. RADIA
[2018-04-07] MEDS ORDERED: NALOXONE 0.4 MG/ML VIAL IVP STA (13:26)
[2018-04-07] MEDS ORDERED: SODIUM CHLORIDE 0.9% 500 ML IV ONE (13:31)
[2018-04-07] MEDS ORDERED: DEXAMETHASONE 10 MG/ML VIAL IVP STA (13:31)
[2018-04-07] MEDS ORDERED: SODIUM CHLORIDE FLUSH 0.9% 10 ML SYRINGE IVP PRN (18:30)
[2018-04-07] MEDS ORDERED: SODIUM CHLORIDE 0.9% 1,000 ML IV SCH (19:00)
[2018-04-07 22:02] LABS: ABG PH 7.57 (7.35-7.45)
[2018-04-07 22:03] LABS: ABG BASE EXCESS 16.7 mmol/L (-2.0-3.0); ABG OXYGEN SATURATION 96 % (94-98); ABG PCO2 46 mmHg (34-45); ABG PO2 79 mmHg (80-100); ALLEN TEST POSITIVE
[2018-04-07 22:07] LABS: ABG TCO2 42.4 MMOL/L (21.0-29.0)
[2018-04-07] MEDS: SODIUM CHLORIDE 0.9% 1,000 ML IV SCH (23:04)
[2018-04-07 23:26] LABS: BASOPHILS % (AUTO) 0.6 %; HGB - HEMOGLOBIN 13.1 g/dL (14.0-18.0); LYMPHOCYTES % (AUTO) 3.2 %; MEAN CORPUSCULAR HGB CONC 32.7 g/dL (32.0-36.0); MEAN CORPUSCULAR VOLUME 91.8 fL (80.0-94.0); MEAN PLATELET VOLUME 8.2 fL (7.4-11.4); MONOCYTES % (AUTO) 3.7 %; NEUTROPHILS % (AUTO) 92.5 %; PLT - PLATELET COUNT 348 10^3/uL (130-450); RED BLOOD COUNT 4.37 10^6/uL (4.70-6.10); WHITE BLOOD COUNT 22.8 x10^3/uL (4.8-10.8)
[2018-04-07 23:28] LABS: ABNORMAL LYMPHS % (MANUAL) 0 %
[2018-04-07 23:51] LABS: ALBUMIN 3.2 g/dL (3.2-5.5); BILIRUBIN,TOTAL 1.5 mg/dL (0.2-1.0); CALCIUM 9.4 mg/dL (8.5-10.3); CREATININE 2.3 mg/dL (0.6-1.2); TOTAL PROTEIN 6.4 g/dL (6.7-8.2)
[2018-04-08 00:05] LABS: BAND NEUTROPHILS % (MANUAL) 4 %; DIFFERENTIAL COMMENT MANUAL DIFFERENTIAL; LYMPHOCYTES # (MANUAL) 1.1 10^3/uL (1.5-3.5); LYMPHOCYTES % (MANUAL) 5 %; MONOCYTES # (MANUAL) 1.1 10^3/uL (0.0-1.0); NEUTROPHILS # (MANUAL) 20.5 10^3/uL (1.5-6.6); NEUTROPHILS % (MANUAL) 86 %; PLATELET ESTIMATE, MANUAL NORMAL (130-450,000) (NORMAL); RBC MORPHOLOGY (MULTIPLE) NORMAL APPEARANCE (NORMAL)
[2018-04-08] MEDS ORDERED: ceFAZolin 2 GM/50 ML 2 GM/50 ML BAG IV STA (00:42)
[2018-04-08] MEDS ORDERED: SODIUM CHLORIDE 0.9% 500 ML IV ONE (00:46)
[2018-04-08] MEDS: SODIUM CHLORIDE FLUSH 0.9% 10 ML SYRINGE IVP SCH ×3 (00:56→18:54)
[2018-04-08] MEDS: LACTULOSE 10 GM /15 ML UDC PO SCH ×2 (00:57→05:34)
--- NOTE | 2018-04-08 00:57 | HISTORY & PHYSICAL EXAMINATION ---
Chief Complaint - Chief Complaint Chief Complaint: encephalopathy History of Present Illness - History of Present Illness HPI Comment/Other: Patient is a 72 y/o morbidly obese white male with history of type 2 diabetes mellitus on insulin, hypertension, SONJA, COPD with exacerbations and pneumonia, cellulitis of the legs, venostasis of legs and Lewy body dementia who present from [facility] today for concern of being obtunded. He only woke up to sternal rub. He was just discharged from the hospital on 04/06/18. During that stay he was treated for sepsis believed to be due to lower extremity cellulitis. Blood cultures had grown gram positive cocci. His previous cultures had grown duarte- sensitive staph and strep and he was treated with ancef. Currently he is very agitated and not aware of his surrounding. Consequently he is not able to contribute to this history. History - Past Medical History Cardiovascular: reports: Congestive heart failure, Hypertension, Coronary artery disease Respiratory: reports: Asthma, COPD, Shortness of breath, Sleep apnea Neuro: reports: Dementia, Tremors Endocrine/Autoimmune: reports: Type 2 diabetes : reports: Benign prostate hypertrophy, Incontinence HEENT: reports: None Psych: reports: Depression, Anxiety, Claustrophobia Musculoskeletal: reports: Osteoarthritis Derm: reports: Psoriasis MRSA Hx?: No - Past Surgical History General: reports: Appendectomy, Hiatal hernia repair Ortho: reports: Other - Family & Social History Family History: Mother: , Father: - POLST Patient has POLST: Yes Meds/Allgy - Home Medications Home Medications: Ambulatory Orders Medication Instructions Recorded Confirmed Aspirin [Aspirin EC] 81 mg PO DAILY 11/18/13 04/07/18 Cholecalciferol (Vitamin D3) 1,000 unit PO DAILY 11/18/13 04/07/18 [Vitamin D3] Ferrous Sulfate [Iron] 325 mg PO BID 11/18/13 04/07/18 Finasteride [Proscar] 5 mg PO DAILY 11/18/13 04/07/18 Montelukast Sodium [Singulair] 10 mg PO DAILY 11/18/13 04/07/18 Multivitamin [Multi-Vitamin Daily] 1 each PO DAILY 11/18/13 04/07/18 Omeprazole [PriLOSEC] 40 mg PO QDAC 11/18/13 04/07/18 Paroxetine HCl [Paxil] 20 mg PO DAILY 11/18/13 04/07/18 Torsemide [Demadex] 60 mg PO BID 11/18/13 04/07/18 glipiZIDE [Glucotrol] 5 mg PO 0730 11/18/13 04/07/18 amLODIPine [Norvasc] 5 mg PO DAILY 01/04/16 04/07/18 Donepezil HCl 5 mg PO DAILY 11/24/16 04/07/18 Fenofibrate 160 mg PO DAILY 11/24/16 04/07/18 Potassium Chloride 20 meq PO DAILY 11/24/16 04/07/18 Tamsulosin HCl 0.8 mg PO DAILY 11/24/16 04/07/18 Acetaminophen [Tylenol] 650 mg PO Q4HR PRN #0 tablet 11/28/16 04/07/18 Albuterol 2.5 mg INH Q4H PRN 04/02/18 04/07/18 Albuterol Sulfate [Proair Hfa 2 puffs INH Q4H PRN 04/02/18 04/07/18 Inhaler] Ascorbic Acid [Vitamin C] 500 mg PO DAILY 04/02/18 04/07/18 Docusate Sodium 250Mg Capsule 250 mg PO BID 04/02/18 04/07/18 [Colace 250Mg Capsule] Insulin Aspart [Novolog Flexpen] 1 - 5 unit SUBQ ACHS 04/02/18 04/07/18 Insulin Glargine [Lantus Solostar] 6 units SUBQ QPM 04/02/18 04/07/18 Nystatin [Nystop] 1 applic TOP BID #1 bottle 04/06/18 04/07/18 Prednisone 5 mg PO DAILY #30 tablet 04/06/18 04/07/18 Saccharomyces Boulardii [Florastor] 250 mg PO BID #28 capsule 04/06/18 04/07/18 Sulfamethox/Trimeth 800/160 1 each PO BID #14 tablet 04/06/18 04/07/18 [Bactrim Ds 800/160] predniSONE [Prednisone] 20 mg PO DAILY 8 Days #20 tablet 04/06/18 04/07/18 - Allergies Allergies/Adverse Reactions: Allergies Allergy/AdvReac Type Severity Reaction Status Date / Time bacitracin Allergy Severe Unknown Verified 04/07/18 10:46 [From Neosporin ([id number])] bacitracin zinc * Allergy Severe Unknown Verified 04/07/18 10:46 [From Neosporin ([id number]-[id number])] latex Allergy Severe Unknown Verified 04/07/18 10:46 lovastatin Allergy Severe Unknown Verified 04/07/18 10:46 neomycin sulfate * Allergy Severe Unknown Verified 04/07/18 10:46 [From Neosporin ([id number])] polymyxin B Allergy Severe Unknown Verified 04/07/18 10:46 [From Neosporin ([id number])] pravastatin sodium * Allergy Severe Unknown Verified 04/07/18 10:46 [From Pravachol] trazodone Allergy Unknown Verified 04/07/18 10:46 Review of Systems - Other Findings Other Findings: Review of systems is limited because the patient is currently altered owing to his medical conditions, thus unable to provide Exam - Vital Signs Reviewed Vital Signs: Yes Vital Signs: Vital Signs x48h Temp Pulse Pulse Resp BP BP Pulse Ox 04/08/18 00:32 99 36 H 71/48 L 97 04/08/18 00:00 112 H 28 H 85/65 L 96 04/07/18 21:29 93 37 H 90/62 97 04/07/18 21:00 107 H 33 H 122/109 H 97 04/07/18 19:45 36.3 C L 113 H 28 H 101/84 H 96 04/07/18 19:31 36.9 C 87 16 143/69 H 96 04/07/18 17:49 97 20 109/66 95 - Physical Exam General Appearance: positive: Moderate distress, Other (agitated). negative: Alert Eyes Bilateral: positive: Normal inspection, PERRL, EOMI ENT: positive: ENT inspection nml, Pharynx nml. negative: Purulent nasal drainage, Pharyngeal erythema Neck: positive: Nml inspection, Thyroid nml, No JVD, Trachea midline Respiratory: positive: Chest non-tender, No respiratory distress, Breath sounds nml. negative: Wheezes, Rales, Rhonchi Cardiovascular: positive: No murmur, No gallop, Tachycardia. negative: Irregularly irregular Abdomen: positive: Non-tender, No organomegaly, Nml bowel sounds, Tenderness Skin: positive: Color nml, Other (venostasis changes in lower ext: rudiness to legs) Extremities: positive: Pedal edema Neurologic/Psychiatric: negative: Oriented x3 Conclusion/Plan - Problem List (1) Septic shock Conclusion/Plan: suspect 2/2 cellulitis suspect gram positive cocci as in previous cultures Blood cultures drawn. Normal saline fluid bolus being administered Levophed ordered to run peripherally (initially) If no appropriate response will contact ED for a central line Will trend lactic acid Will hold torsemide I reviewed the advanced care plan done by Dr Valentine Portillo In light of sudden decline in his clinical status (SBP 71, WBC 22, lactic acid 2.4) I called his to update her and get direction as to how much she would like done She maintains that everything should be done. This included antibiotics and pressors, which have been initiated as above. She hopes that the patient will get better and be able to walk on his own again someday I attempted to explain that the patient will likely see progressive decline in his overall condition over time And this might be reflected by frequent readmissions. I ask about her thoughts on palliative or hospice care but didn't get a definite response. (2) Hepatic encephalopathy Conclusion/Plan: Patient was started on lactulose 30mg po q6hrs (3) Acute worsening of stage 3 chronic kidney disease Conclusion/Plan: This may be further precipitated by the septic shock Will continue to monitor. If continued worsening and no change in his goals of care, Patient may eventually need nephrology consult and assessment for hemodialysis (4) T2DM (type 2 diabetes mellitus) Conclusion/Plan: Accu checks. SSI Qualifiers: Diabetes mellitus retirement insulin use: with manager intermediate use (5) SONJA (obstructive sleep apnea) Conclusion/Plan: No treatment currently (6) Lewy body dementia Qualifiers: Dementia behavioral disturbance: with behavioral disturbance Qualified Code(s): G31.83 - Dementia with Lewy bodies; F02.81 - Dementia in other diseases classified elsewhere with behavioral disturbance - Lab Results Fish Bones: 04/07/18 23:15 04/07/18 23:15 Core Measures - Anticipated LOS I expect patient to be DC'd or transferred within 96 hours.: No - DVT/VTE - Prophylaxis VTE/DVT Device ordered at admit?: Yes VTE/DVT Prophylaxis med ordered at admit?: Yes
[2018-04-08] MEDS ORDERED: VANCOMYCIN PER PHARMACY 0.1 GM in SODIUM CHLORIDE 0.9% 250 ML IV SCH (01:00)
[2018-04-08] MEDS ORDERED: VANCOMYCIN INJ 1.25 GM in SODIUM CHLORIDE 0.9% 250 ML IV SCH (01:00)
[2018-04-08] MEDS ORDERED: VANCOMYCIN INJ 1.5 GM in SODIUM CHLORIDE 0.9% 500 ML IV SCH (01:00)
[2018-04-08] MEDS ORDERED: SODIUM CHLORIDE 0.9% 1,000 ML IV ONE (01:04)
[2018-04-08] MEDS ORDERED: ZINC OXIDE 20% OINT 28.35 GM TUBE TOP PRN (03:16)
[2018-04-08 06:39] LABS: BASOPHILS % (AUTO) 0.8 %; LYMPHOCYTES % (AUTO) 3.4 %; MEAN CORPUSCULAR HEMOGLOBIN 30.1 pg (27.0-31.0); MEAN CORPUSCULAR HGB CONC 32.4 g/dL (32.0-36.0); MEAN PLATELET VOLUME 8.2 fL (7.4-11.4); MONOCYTES % (AUTO) 4.3 %; NEUTROPHILS % (AUTO) 91.5 %; PLT - PLATELET COUNT 299 10^3/uL (130-450); RED BLOOD COUNT 3.99 10^6/uL (4.70-6.10); WHITE BLOOD COUNT 28.1 x10^3/uL (4.8-10.8)
[2018-04-08 06:45] LABS: ABNORMAL LYMPHS % (MANUAL) 0 %
[2018-04-08] MEDS: SODIUM CHLORIDE 0.9% 1,000 ML IV SCH (06:58)
[2018-04-08 07:05] LABS: BAND NEUTROPHILS % (MANUAL) 1 %; DIFFERENTIAL COMMENT MANUAL DIFFERENTIAL; LYMPHOCYTES # (MANUAL) 2.2 10^3/uL (1.5-3.5); LYMPHOCYTES % (MANUAL) 8 %; METAMYELOCYTES % (MANUAL) 3 %; MONOCYTES # (MANUAL) 1.7 10^3/uL (0.0-1.0); MYELOCYTES % (MANUAL) 2 %; NEUTROPHILS # (MANUAL) 22.8 10^3/uL (1.5-6.6); NEUTROPHILS % (MANUAL) 80 %; PLATELET ESTIMATE, MANUAL NORMAL (130-450,000) (NORMAL); RBC MORPHOLOGY (MULTIPLE) NORMAL APPEARANCE (NORMAL)
[2018-04-08 07:16] LABS: ALBUMIN 2.8 g/dL (3.2-5.5); BILIRUBIN,TOTAL 1.2 mg/dL (0.2-1.0); CALCIUM 8.7 mg/dL (8.5-10.3); CREATININE 3.1 mg/dL (0.6-1.2); TOTAL PROTEIN 5.5 g/dL (6.7-8.2)
[2018-04-08] MEDS: DEXTROSE 5%-0.45% NACL 1,000 ML IV SCH ×2 (10:00→18:14)
[2018-04-08] MEDS: POLYETHYLENE GLYCOL 3350 17 GM PACKET PO SCH (10:15)
[2018-04-08] MEDS: INSULIN REGULAR HUMAN 100 UNIT/1 ML 10 ML MDV SUBQ SCH ×2 (12:30→18:13)
--- NOTE | 2018-04-08 16:44 | PROVIDER PROGRESS NOTE ---
Assessment/Plan - Problem List (1) Septic shock Assessment/Plan: Continue to look for source, follow CXR daily. Continue empiric antibiotics. Follow lactic acid level til improves. (2) Metabolic alkalosis with respiratory acidosis Assessment/Plan: This appears to be from marked volume depletion. His diuretic was stopped. Continue aggressive rehydration. Follow BMP daily. (3) Acute on chronic renal insufficiency Assessment/Plan: Worsening creat daily, despite hydration. Ultrasound of renals planned. Monitor BUN/creat daily. Avoid nephrotoxic agents. 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 Continue GI meds to prophylax from ulcer. NPO ss Insulin coverage. (5) Encephalopathy, metabolic Assessment/Plan: Head CT was neg for stroke, bleed, or infection. Lactulose tried and diarrhea resulted. He did this similar thing with last infection. Continue neuro monitoring. Will repeat head CT in several days if no change. - Current Meds Current Meds: Current Medications Generic Name Dose Route Start Last Admin Trade Name Freq PRN Reason Stop Dose Admin Norepinephrine Bitartrate 8 mg 250 mls @ 15 mls/hr 04/08/18 01:00 04/08/18 01 :35 / Dextrose IV Not Given .[id number] FLORIN Protocol 8 MCG/MIN Dextrose/Sodium Chloride 1,000 mls @ 125 mls/hr 04/08/18 10:00 04/08/18 10:00 D5.45ns IV 125 mls/hr .Q8H FLORIN Administration Insulin Human Regular 1 - 9 unit 04/08/18 12:00 04/08/18 12:30 Novolin R SUBQ 5 unit Q6HR FLORIN Administration Protocol Polyethylene Glycol 17 gm 04/08/18 09:00 04/08/18 10:15 Miralax PO Not Given DAILY FLORIN Sodium Chloride 10 ml 04/08/18 01:00 04/08/18 10:41 Normal Saline Flush 0.9% IVP Not Given 0100,0900,1700 FLORIN - Lab Result Fish Bone Diagrams: 04/10/18 04:54 04/10/18 04:54 - Additional Planning My Orders: My Active Orders 04/07/18 18:30 Activity Orders [RC] Routine IO [RC] Q1HR Initiate Bowel Care Protocol [RC] .protocol Initiate Line Care Protocol [RC] QSHIFT Initiate Personal Care Protoco [RC] .protocol Oxygen Therapy [RC] Routine Sodium Chloride Flush 0.9% [Normal Saline Flush 0.9%] 10 ml IVP PRN PRN Code Status [OTHERS] Routine Condition of Patient [OTHERS] Routine DVT Prophylaxis [OTHERS] Routine 04/07/18 18:32 NPO except Meds [DIET] 04/07/18 18:33 Daily Weight [RC] 0600 04/07/18 18:34 SCDs [RC] QSHIFT 04/07/18 20:04 Nutrition Consult [CONS] Routine 04/08/18 Palliative Care Consult [CONS] Routine 04/08/18 01:00 Sodium Chloride Flush 0.9% [Normal Saline Flush 0.9%] 10 ml IVP 0100,0900,1700 04/08/18 03:16 Zinc Oxide 20% Oint [Zinc Oxide] 1 applic TOP PRN PRN 04/08/18 09:00 Polyethylene Glycol 3350 [Miralax] 17 gm PO DAILY 04/08/18 10:00 Dextrose 5%-0.45% NaCl [D5.45ns] 1,000 ml IV 125 mls/hr 04/08/18 10:29 Blood Glucose POC [RC] 0000,0600,1200,1800 Initiate Hypoglycemia Protocol [RC] .protocol 04/08/18 12:00 Insulin Regular Human [NovoLIN R] 1 - 9 unit SUBQ Q6HR Subjective - Subjective Patient Reports: Other (Pt sleeping and appears comfortable) Objective Vital Signs: Vital Signs - 24 hr 04/07/18 04/07/18 04/07/18 17:49 19:31 19:45 Temperature 36.9 C 36.3 C L Heart Rate 97 87 Heart Rate [ 113 H Monitoring electrodes] Respiratory 20 16 28 H Rate Blood Pressure 109/66 143/69 H Blood Pressure 101/84 H [Right Brachial artery] O2 Saturation 95 96 96 04/07/18 04/07/18 04/08/18 21:00 21:29 00:00 Temperature Heart Rate Heart Rate [ 107 H 93 112 H Monitoring electrodes] Respiratory 33 H 37 H 28 H Rate Blood Pressure Blood Pressure 122/109 H 90/62 85/65 L [Right Brachial artery] O2 Saturation 97 97 96 04/08/18 04/08/18 04/08/18 00:32 00:44 01:00 Temperature 98.6 C H Heart Rate Heart Rate [ 99 111 H 90 Monitoring electrodes] Respiratory 36 H 25 H 20 Rate Blood Pressure Blood Pressure 71/48 L 97/56 L 93/58 L [Right Brachial artery] O2 Saturation 97 97 98 04/08/18 04/08/18 04/08/18 01:30 01:54 02:00 Temperature Heart Rate Heart Rate [ 98 90 104 H Monitoring electrodes] Respiratory 24 24 26 H Rate Blood Pressure Blood Pressure 107/64 109/96 H 105/70 [Right Brachial artery] O2 Saturation 99 96 96 04/08/18 04/08/18 04/08/18 02:30 02:57 03:30 Temperature Heart Rate Heart Rate [ 107 H 121 H 92 Monitoring electrodes] Respiratory 28 H 40 H 26 H Rate Blood Pressure Blood Pressure 101/66 94/62 97/62 [Right Brachial artery] O2 Saturation 96 100 98 04/08/18 04/08/18 04/08/18 04:00 04:30 05:00 Temperature 98.6 C H Heart Rate Heart Rate [ 96 100 111 H Monitoring electrodes] Respiratory 22 19 22 Rate Blood Pressure Blood Pressure 77/53 L 117/105 H 104/57 L [Right Brachial artery] O2 Saturation 98 98 99 04/08/18 04/08/18 04/08/18 05:30 06:00 06:29 Temperature Heart Rate Heart Rate [ 122 H 112 H 122 H Monitoring electrodes] Respiratory 27 H 34 H 24 Rate Blood Pressure Blood Pressure 107/70 104/57 L 107/95 H [Right Brachial artery] O2 Saturation 99 98 98 04/08/18 04/08/18 04/08/18 07:00 07:24 08:00 Temperature 36.6 C Heart Rate Heart Rate [ 116 H 105 H 93 Monitoring electrodes] Respiratory 27 H 28 H 22 Rate Blood Pressure Blood Pressure 109/71 96/71 93/61 [Right Brachial artery] O2 Saturation 98 97 94 04/08/18 04/08/18 04/08/18 08:30 09:00 09:30 Temperature Heart Rate Heart Rate [ 95 92 92 Monitoring electrodes] Respiratory 17 15 24 Rate Blood Pressure Blood Pressure 99/66 99/66 93/65 [Right Brachial artery] O2 Saturation 95 95 95 04/08/18 04/08/18 04/08/18 10:00 11:00 12:00 Temperature 36.6 C Heart Rate Heart Rate [ 106 H 97 101 H Monitoring electrodes] Respiratory 24 22 26 H Rate Blood Pressure Blood Pressure 105/75 129/94 H 95/64 [Right Brachial artery] O2 Saturation 96 95 100 04/08/18 04/08/18 04/08/18 13:00 14:00 15:00 Temperature Heart Rate Heart Rate [ 104 H 96 103 H Monitoring electrodes] Respiratory 15 25 H 22 Rate Blood Pressure Blood Pressure 90/59 L 106/65 85/44 L [Right Brachial artery] O2 Saturation 100 96 97 04/08/18 16:00 Temperature 37.4 C Heart Rate Heart Rate [ Monitoring electrodes] Respiratory 22 Rate Blood Pressure Blood Pressure 87/65 L [Right Brachial artery] O2 Saturation 97 Oxygen O2 Source [With Activity] Room air O2 Source [Without Activity] Room air O2 Source Nasal cannula I&O (Last 24 Hrs): Intake and Output Totals x24h 04/06/18 04/07/18 04/08/18 23:59 23:59 23:59 Intake Total 500 2046.500 Output Total 1210 5 Balance -710 12.500 General: Other (Somnolent, not stimulated but earlier he only responded to sternal rub) HEENT: Atraumatic, Mucous membr. moist/pink Neck: Supple Neuro: Other (Obtunded) Cardiovascular: No murmurs Respiratory: No respiratory distress Abdomen: Soft, Other (Obese/distended) Extremities: Other (2+ edema) - Results Results: Laboratory Results WBC 28.1 x10^3/uL (4.8-10.8) H 04/08/18 06:32 RBC 3.99 10^6/uL (4.70-6.10) L 04/08/18 06:32 Hgb 12.0 g/dL (14.0-18.0) L 04/08/18 06:32 Hct 37.1 % (42.0-52.0) L 04/08/18 06:32 MCV 93.0 fL (80.0-94.0) 04/08/18 06:32 MCH 30.1 pg (27.0-31.0) 04/08/18 06:32 MCHC 32.4 g/dL (32.0-36.0) 04/08/18 06:32 RDW 14.0 % (12.0-15.0) 04/08/18 06:32 Plt Count 299 10^3/uL (130-450) 04/08/18 06:32 MPV 8.2 fL (7.4-11.4) 04/08/18 06:32 Neut # (Auto) Not Reportable 04/08/18 06:32 Lymph # (Auto) Not Reportable 04/08/18 06:32 Mcdonald # (Auto) Not Reportable 04/08/18 06:32 Eos # (Auto) Not Reportable 04/08/18 06:32 Baso # (Auto) Not Reportable 04/08/18 06:32 Absolute Nucleated RBC Not Reportable 04/08/18 06:32 Total Counted 100 04/08/18 06:32 Band Neuts % (Manual) 1 % (0-10) 04/08/18 06:32 Abnorm Lymph % (Manual) 0 % 04/08/18 06:32 Metamyelocytes % 3 % (-0) H 04/08/18 06:32 Myelocytes % 2 % (-0) H 04/08/18 06:32 Nucleated RBC % Not Reportable 04/08/18 06:32 Neutrophils # (Manual) 22.8 10^3/uL (1.5-6.6) H 04/08/18 06:32 Lymphocytes # (Manual) 2.2 10^3/uL (1.5-3.5) 04/08/18 06:32 Monocytes # (Manual) 1.7 10^3/uL (0.0-1.0) H 04/08/18 06:32 Eosinophils # (Manual) 0.0 10^3/uL (0-0.7) 04/08/18 06:32 Basophils # (Manual) 0.0 10^3/uL (0-0.1) 04/08/18 06:32 Differential Comment MANUAL DIFFERENTIAL 04/08/18 06:32 Platelet Estimate NORMAL (130-450,000) (NORMAL) 04/08/18 06:32 RBC Morph Micro Appear NORMAL APPEARANCE (NORMAL) 04/08/18 06:32 Bld Gas Analysis Time 2201 04/07/18 21:50 Sample Site LEFT RADIAL 04/07/18 21:50 ABG pH 7.57 (7.35-7.45) H 04/07/18 21:50 ABG pCO2 46 mmHg (34-45) H 04/07/18 21:50 ABG pO2 79 mmHg (80-100) L 04/07/18 21:50 ABG HCO3 41.0 mmol/L (22.0-26.0) H 04/07/18 21:50 ABG Total CO2 42.4 MMOL/L (21.0-29.0) H* 04/07/18 21:50 ABG O2 Saturation 96 % (94-98) 04/07/18 21:50 ABG Oximetry Spot Check 98 % 04/07/18 21:50 ABG Base Excess 16.7 mmol/L (-2.0-3.0) H 04/07/18 21:50 Simeon Test POSITIVE 04/07/18 21:50 O2 Delivery Device NASAL CANNULA 04/07/18 11:37 O2 Liters/Min 4.00 LPM 04/07/18 11:37 Sodium 151 mmol/L (135-145) H 04/08/18 06:32 Potassium 3.9 mmol/L (3.5-5.0) 04/08/18 06:32 Chloride 103 mmol/L (101-111) 04/08/18 06:32 Carbon Dioxide 38 mmol/L (21-32) H 04/08/18 06:32 Anion Gap 10.0 (6-13) 04/08/18 06:32 BUN 118 mg/dL (6-20) H* 04/08/18 06:32 Creatinine 3.1 mg/dL (0.6-1.2) H 04/08/18 06:32 Estimated GFR (MDRD) 20 (>89) L 04/08/18 06:32 Glucose 247 mg/dL (70-100) H 04/08/18 06:32 Lactic Acid 1.4 mmol/L (0.5-2.2) 04/08/18 09:52 Calcium 8.7 mg/dL (8.5-10.3) 04/08/18 06:32 Magnesium 2.2 mg/dL (1.7-2.8) 09/13/18 11:18 Total Bilirubin 1.2 mg/dL (0.2-1.0) H 04/08/18 06:32 AST 30 IU/L (10-42) 04/08/18 06:32 ALT 27 IU/L (10-60) 04/08/18 06:32 Alkaline Phosphatase 33 IU/L (42-121) L 04/08/18 06:32 Ammonia 43.2 umol/L (7-35) H 04/08/18 06:32 Total Protein 5.5 g/dL (6.7-8.2) L 04/08/18 06:32 Albumin 2.8 g/dL (3.2-5.5) L 04/08/18 06:32 Globulin 2.7 g/dL (2.1-4.2) 04/08/18 06:32 Albumin/Globulin Ratio 1.0 (1.0-2.2) 04/08/18 06:32 Lipase 79 U/L (22-51) H 04/07/18 11:18 Urine Color YELLOW 04/07/18 11:44 Urine Clarity CLEAR (CLEAR) 04/07/18 11:44 Urine pH 7.0 PH (5.0-7.5) 04/07/18 11:44 Ur Specific [place] 1.010 (1.002-1.030) 04/07/18 11:44 Urine Protein NEGATIVE mg/dL (NEGATIVE) 04/07/18 11:44 Urine Glucose (UA) NEGATIVE mg/dL (NEGATIVE) 04/07/18 11:44 Urine Ketones NEGATIVE mg/dL (NEGATIVE) 04/07/18 11:44 Urine Occult Blood NEGATIVE (NEGATIVE) 04/07/18 11:44 Urine Nitrite NEGATIVE (NEGATIVE) 04/07/18 11:44 Urine Bilirubin NEGATIVE (NEGATIVE) 04/07/18 11:44 Urine Urobilinogen 1 (NORMAL) E.U./dL (NORMAL) 04/07/18 11:44 Ur Leukocyte Esterase NEGATIVE (NEGATIVE) 04/07/18 11:44 Ur Microscopic Review NOT INDICATED 04/07/18 11:44 Urine Culture Comments NOT INDICATED 04/07/18 11:44 - Procedures Procedures: Procedures SPINAL TAP (11/18/13) VENOUS CATHETERIZATION NEC (11/18/13)
--- NOTE | 2018-04-08 17:22 | CONSULTATION NOTE ---
Palliative Care Follow Up - Referral Referring Provider: Dr. Daphne Shaffer Time of Visit: 9552-0522 Referral setting: Hospitalized patient Referral Reason: Sepsis/Altered mental status/Goals of Care - Information Sources Records reviewed: Previous records reviewed History/Review of Systems obtained from: Family ( Jessie, and son Mohan) Exam limitations: Clinical condition (patient nonresponsive) - History of Present Illness Update Brief HPI Update: This is a 72-year-old gentleman who was most recently hospitalized at [facility] , for COPD exacerbation, cellulitis, and altered mental status. Patient as acutely ill, has underlying venous stasis, wounds and edema were improving, respiratory status improved, and was starting to work with physical therapy. Palliative care referral was made at that time, met with with the goal to continue to monitor patient and goal for improvement to be able to return home, but recognizing patient fragile and at risk for ongoing complications. She had just met with Dr. Portillo, and transitioned from FULL CODE to DNAR/Selected Treatments. He was transfered to [facility] 04/06, did well than evening, but in AM had several episodes of vomiting and was nonresponsive. Did hear from Dr. Ozuna as unable to get hold of , reviewed goals were still to treat at this point, and given our conversations should send him in. Patient was in the ED most of the day, getting rehydrated, with slight improvement. But given his multiple comorbidities including morbid obesity, COPD, venous stasis, cellulitis, history of pneumonias, and Lewy body dementia he is quite complex, and has changed from baseline. He was admitted to the floor, and continued to deteriorate, came in last night, with a goal to treat. Patient presents today, is nonresponsive, does have a NG tube draining dark brown drainage, he has also been incontinent multiple times this morning of liquid watery dark stool. He does have significant respiratory effort, he is tacky, presents with ongoing elevation of his WBC 28.1, and increasing symptoms of kidney failure with a BUN of 118. He appears quite uncomfortable, at the bedside and quite tearful. Palliative care to meet with regarding goals of care given his acute ongoing decline, interdisciplinary team needing direction regarding next steps based on goals Social History - Living Situation Living arrangement: At home Living Situation: With spouse/s.o. Support System: She has had mild ongoing functional and cognitive decline, most acutely about a week prior to his hospitalizations. He is mostly recliner bound. He has been able to ambulate few steps to help with bathing and tony-care, but is dependent on for all ADLs. He has been able to self-feed, does have some interaction, is able to speak in full sentences but does have ongoing and fluctuating awareness as well as cognitive status. She has been providing fairly highly intense caregiving for the last several years, patient has had multiple hospitalizations, she does recognize that he is declining. She has only care for about 2 afternoons a week, and has been exhibiting some caregiver fatigue Medications/Allergies - Medications Active Medication List: Active Medications Norepinephrine Bitartrate 8 mg (/ Dextrose) 250 mls @ 15 mls/hr IV .[id number] [facility]; Protocol Last Admin: 04/08/18 01:35 Dose: Not Given Vancomycin HCl 1 gm/Vancomycin HCl 250 mg/ Sodium Chloride 250 mls @ 167 mls/hr IV Q24H [facility] Dextrose/Sodium Chloride (D5.45ns) 1,000 mls @ 125 mls/hr IV .Q8H [facility] Last Admin: 04/08/18 10:00 Dose: 125 mls/hr Insulin Human Regular (Novolin R) 1 - 9 unit SUBQ Q6HR [facility]; Protocol Last Admin: 04/08/18 12:30 Dose: 5 unit Multi-Ingredient Ointment (Zinc Oxide) 1 applic TOP PRN PRN PRN Reason: Skin Care Polyethylene Glycol (Miralax) 17 gm PO DAILY [facility] Last Admin: 04/08/18 10:15 Dose: Not Given Sodium Chloride (Normal Saline Flush 0.9%) 10 ml IVP PRN PRN PRN Reason: NEEDED PER PROVIDER ORDERS Sodium Chloride (Normal Saline Flush 0.9%) 10 ml IVP 0100,0900,1700 [facility] Last Admin: 04/08/18 10:41 Dose: Not Given Aspirin [Aspirin EC] 81 mg PO DAILY 11/18/13 Cholecalciferol (Vitamin D3) [Vitamin D3] 1,000 unit PO DAILY 11/18/13 Ferrous Sulfate [Iron] 325 mg PO BID 11/18/13 Finasteride [Proscar] 5 mg PO DAILY 11/18/13 Montelukast Sodium [Singulair] 10 mg PO DAILY 11/18/13 Multivitamin [Multi-Vitamin Daily] 1 each PO DAILY 11/18/13 Omeprazole [PriLOSEC] 40 mg PO QDAC 11/18/13 Paroxetine HCl [Paxil] 20 mg PO DAILY 11/18/13 Torsemide [Demadex] 60 mg PO BID 11/18/13 glipiZIDE [Glucotrol] 5 mg PO 0730 11/18/13 amLODIPine [Norvasc] 5 mg PO DAILY 01/04/16 Donepezil HCl 5 mg PO DAILY 11/24/16 Fenofibrate 160 mg PO DAILY 11/24/16 Potassium Chloride 20 meq PO DAILY 11/24/16 Tamsulosin HCl 0.8 mg PO DAILY 11/24/16 Albuterol 2.5 mg INH Q4H PRN 04/02/18 Albuterol Sulfate [Proair Hfa Inhaler] 2 puffs INH Q4H PRN 04/02/18 Ascorbic Acid [Vitamin C] 500 mg PO DAILY 04/02/18 Docusate Sodium 250Mg Capsule [Colace 250Mg Capsule] 250 mg PO BID 04/02/18 Insulin Aspart [Novolog Flexpen] 1 - 5 unit SUBQ ACHS 04/02/18 Insulin Glargine [Lantus Solostar] 6 units SUBQ QPM 04/02/18 - Allergies Allergies/Adverse Reactions: Allergies Allergy/AdvReac Type Severity Reaction Status Date / Time bacitracin Allergy Severe Unknown Verified 04/07/18 10:46 [From Neosporin ([id number])] bacitracin zinc * Allergy Severe Unknown Verified 04/07/18 10:46 [From Neosporin ([id number])] latex Allergy Severe Unknown Verified 04/07/18 10:46 lovastatin Allergy Severe Unknown Verified 04/07/18 10:46 neomycin sulfate * Allergy Severe Unknown Verified 04/07/18 10:46 [From Neosporin ([id number])] polymyxin B Allergy Severe Unknown Verified 04/07/18 10:46 [From Neosporin ([id number])] pravastatin sodium * Allergy Severe Unknown Verified 04/07/18 10:46 [From Pravachol] trazodone Allergy Unknown Verified 04/07/18 10:46 Review of Systems - Constitutional Constitutional: reports: Fever - Cardiovascular Cardiovascular: reports: Irregular heart rate - Respiratory Respiratory: reports: SOB at rest, SOB with exertion - Gastrointestinal Gastrointestinal: reports: Vomiting (has ng tube) - Musculoskeletal Musculoskeletal: reports: Muscle weakness - Endocrine Endocrine: reports: Diabetes type 2 - Hematologic/Lymphatic Hematologic/Lymphatic: reports: Recurrent infections - Other Findings Other Findings: limited ROS; patient unable to participate Physical Exam - Vital Signs Vital Signs: Vital Signs x48h Temp Pulse Resp BP Pulse Ox 04/08/18 17:00 95 26 H 93/63 99 04/08/18 16:00 37.4 C 22 87/65 L 97 04/08/18 15:00 103 H 22 85/44 L 97 04/08/18 14:00 96 25 H 106/65 96 04/08/18 13:00 104 H 15 90/59 L 100 04/08/18 12:00 36.6 C 101 H 26 H 95/64 100 04/08/18 11:00 97 22 129/94 H 95 04/08/18 10:00 106 H 24 105/75 96 04/08/18 09:30 92 24 93/65 95 - Physical Exam General Appearance: positive: Moderate distress (with respiratory effort), Nonresponsive Eyes Bilateral: positive: Other (eyes closed) Neck: positive: Trachea midline (thick neck) Cardiovascular: positive: Irregular, Tachycardia Respiratory: positive: Other (significant effort) Abdomen: positive: Distended, Obese Skin: positive: Pallor, Diaphoresis, Wound (LE with venous stasis) Extremities: positive: Other (scds on) Neurologic/Psychiatric: positive: Other (unresponsive; not sure he recognizes her) Palliative Care - POLST Patient has POLST: Yes POLST Status: DNR, Selective Treatment - Palliative Care Discussion: Have met with on previous admission, do have some rapport. Mariano his son joined us, he admits to severe anxiety and feeling overwhelmed. He did join us, though sat with his head in his hands most of the visit, and quite tearful and choked up. Discussed current decision-making presented by hospitalist, if want "full court press", would need to transfer him to a higher level of care. Jessie does recognize he is quite ill, is quite tearful, and definitely is grasping that this might lead to an end of life event. The other choices would be to keep him here, continue to treat aggressively short of intubation and CPR, with timed trial of 24-48 hours, or transition to comfort care. Lengthy review of each option and looking at benefits and burdens. Feels that patient is seriously ill, is concerned most likely will not get to this episode, and feels adding a transfer with very little hope of a good outcome would only add to the distress. She does feel quite confident and comfortable with the care he is receiving here at [facility]. She would like to continue to treat acknowledging she is hoping for the best, but concerned about outcome and quality of life. She would like to at least trial for 24-48 hours and evaluate response, agreed on Wednesday to revisit depending on patient's condition, consider comfort care. She does recognize he may continue to deteriorate, and that decision may need to be made sooner. She is awaiting her daughter's arrival, as she is quite supportive, she is a teacher in the [facility] area and should be up in the next few hours. Jessie's goal short-term, is to spend as much time as possible with him, and is able to verbalize understanding the seriousness of his current condition and the concerns. Mariano is obviously overwhelmed and overwrought, did spend some time processing patient's overall health and decline, he had not been able to visit in the hospital last week. She had gone and picked him up, he has 2 teenage children 15 and 17. We did discuss in the context of possibly saying goodbye, how best to manage this. In different ways to have them participate if they do not want to visit, including writing a letter to be read. Results - Lab Results Lab results reviewed: Yes Fish Bones: 04/08/18 06:32 04/08/18 06:32 Lab and Imaging Results: Lab Results x24hrs 04/08/18 04/08/18 04/08/18 Range/Units 09:52 06:32 06:32 WBC (4.8-10.8) x10^3/uL RBC (4.70-6.10) 10^6/uL Hgb (14.0-18.0) g/dL Hct (42.0-52.0) % MCV (80.0-94.0) fL MCH (27.0-31.0) pg MCHC (32.0-36.0) g/dL RDW (12.0-15.0) % Plt Count (130-450) 10^3/uL MPV (7.4-11.4) fL Neut # (Auto) Lymph # (Auto) [place] # (Auto) Eos # (Auto) Baso # (Auto) Absolute Nucleated RBC Total Counted Band Neuts % (Manual) (0 - 10) % Abnorm Lymph % (Manual) % Metamyelocytes % ( - 0) % Myelocytes % ( - 0) % Nucleated RBC % Neutrophils # (Manual) (1.5-6.6) 10^3/uL Lymphocytes # (Manual) (1.5-3.5) 10^3/uL Monocytes # (Manual) (0.0-1.0) 10^3/uL Eosinophils # (Manual) (0-0.7) 10^3/uL Basophils # (Manual) (0-0.1) 10^3/uL Differential Comment Platelet Estimate (NORMAL) RBC Morph Micro Appear (NORMAL) Bld Gas Analysis Time Sample Site ABG pH (7.35-7.45) ABG pCO2 (34-45) mmHg ABG pO2 (80-100) mmHg ABG HCO3 (22.0-26.0) mmol/L ABG Total CO2 (21.0-29.0) MMOL/L ABG O2 Saturation (94-98) % ABG Oximetry Spot Check % ABG Base Excess (-2.0-3.0) mmol/L Simeon Test Sodium (135-145) mmol/L Potassium (3.5-5.0) mmol/L Chloride (101-111) mmol/L Carbon Dioxide (21-32) mmol/L Anion Gap (6-13) BUN (6-20) mg/dL Creatinine (0.6-1.2) mg/dL Estimated GFR (MDRD) (>89) Glucose (70-100) mg/dL Lactic Acid 1.4 2.2 (0.5-2.2) mmol/L Calcium (8.5-10.3) mg/dL Total Bilirubin (0.2-1.0) mg/dL AST (10-42) IU/L ALT (10-60) IU/L Alkaline Phosphatase (42-121) IU/L Ammonia 43.2 H (7-35) umol/L Total Protein (6.7-8.2) g/dL Albumin (3.2-5.5) g/dL Globulin (2.1-4.2) g/dL Albumin/Globulin Ratio (1.0-2.2) 04/08/18 04/08/18 04/08/18 Range/Units 06:32 06:32 02:40 WBC 28.1 H (4.8-10.8) x10^3/uL RBC 3.99 L (4.70-6.10) 10^6/uL Hgb 12.0 L (14.0-18.0) g/dL Hct 37.1 L (42.0-52.0) % MCV 93.0 (80.0-94.0) fL MCH 30.1 (27.0-31.0) pg MCHC 32.4 (32.0-36.0) g/dL RDW 14.0 (12.0-15.0) % Plt Count 299 (130-450) 10^3/uL MPV 8.2 (7.4-11.4) fL Neut # (Auto) Not Reportable Lymph # (Auto) Not Reportable [place] # (Auto) Not Reportable Eos # (Auto) Not Reportable Baso # (Auto) Not Reportable Absolute Nucleated RBC Not Reportable Total Counted 100 Band Neuts % (Manual) 1 (0 - 10) % Abnorm Lymph % (Manual) 0 % Metamyelocytes % 3 H ( - 0) % Myelocytes % 2 H ( - 0) % Nucleated RBC % Not Reportable Neutrophils # (Manual) 22.8 H (1.5-6.6) 10^3/uL Lymphocytes # (Manual) 2.2 (1.5-3.5) 10^3/uL Monocytes # (Manual) 1.7 H (0.0-1.0) 10^3/uL Eosinophils # (Manual) 0.0 (0-0.7) 10^3/uL Basophils # (Manual) 0.0 (0-0.1) 10^3/uL Differential Comment MANUAL DIFFERENTIAL Platelet Estimate NORMAL (130-450,000) (NORMAL) RBC Morph Micro Appear NORMAL APPEARANCE (NORMAL) Bld Gas Analysis Time Sample Site ABG pH (7.35-7.45) ABG pCO2 (34-45) mmHg ABG pO2 (80-100) mmHg ABG HCO3 (22.0-26.0) mmol/L ABG Total CO2 (21.0-29.0) MMOL/L ABG O2 Saturation (94-98) % ABG Oximetry Spot Check % ABG Base Excess (-2.0-3.0) mmol/L Simeon Test Sodium 151 H (135-145) mmol/L Potassium 3.9 (3.5-5.0) mmol/L Chloride 103 (101-111) mmol/L Carbon Dioxide 38 H (21-32) mmol/L Anion Gap 10.0 (6-13) BUN 118 H* (6-20) mg/dL Creatinine 3.1 H (0.6-1.2) mg/dL Estimated GFR (MDRD) 20 L (>89) Glucose 247 H (70-100) mg/dL Lactic Acid 1.5 (0.5-2.2) mmol/L Calcium 8.7 (8.5-10.3) mg/dL Total Bilirubin 1.2 H (0.2-1.0) mg/dL AST 30 (10-42) IU/L ALT 27 (10-60) IU/L Alkaline Phosphatase 33 L (42-121) IU/L Ammonia (7-35) umol/L Total Protein 5.5 L (6.7-8.2) g/dL Albumin 2.8 L (3.2-5.5) g/dL Globulin 2.7 (2.1-4.2) g/dL Albumin/Globulin Ratio 1.0 (1.0-2.2) 04/07/18 04/07/18 04/07/18 Range/Units 23:15 23:15 23:15 WBC 22.8 H (4.8-10.8) x10^3/uL RBC 4.37 L (4.70-6.10) 10^6/uL Hgb 13.1 L (14.0-18.0) g/dL Hct 40.1 L (42.0-52.0) % MCV 91.8 (80.0-94.0) fL MCH 30.0 (27.0-31.0) pg MCHC 32.7 (32.0-36.0) g/dL RDW 14.0 (12.0-15.0) % Plt Count 348 (130-450) 10^3/uL MPV 8.2 (7.4-11.4) fL Neut # (Auto) Not Reportable Lymph # (Auto) Not Reportable [place] # (Auto) Not Reportable Eos # (Auto) Not Reportable Baso # (Auto) Not Reportable Absolute Nucleated RBC Not Reportable Total Counted 100 Band Neuts % (Manual) 4 (0 - 10) % Abnorm Lymph % (Manual) 0 % Metamyelocytes % ( - 0) % Myelocytes % ( - 0) % Nucleated RBC % Not Reportable Neutrophils # (Manual) 20.5 H (1.5-6.6) 10^3/uL Lymphocytes # (Manual) 1.1 L (1.5-3.5) 10^3/uL Monocytes # (Manual) 1.1 H (0.0-1.0) 10^3/uL Eosinophils # (Manual) 0.0 (0-0.7) 10^3/uL Basophils # (Manual) 0.0 (0-0.1) 10^3/uL Differential Comment MANUAL DIFFERENTIAL Platelet Estimate NORMAL (130-450,000) (NORMAL) RBC Morph Micro Appear NORMAL APPEARANCE (NORMAL) Bld Gas Analysis Time Sample Site ABG pH (7.35-7.45) ABG pCO2 (34-45) mmHg ABG pO2 (80-100) mmHg ABG HCO3 (22.0-26.0) mmol/L ABG Total CO2 (21.0-29.0) MMOL/L ABG O2 Saturation (94-98) % ABG Oximetry Spot Check % ABG Base Excess (-2.0-3.0) mmol/L Simeon Test Sodium 149 H (135-145) mmol/L Potassium 3.8 (3.5-5.0) mmol/L Chloride 94 L (101-111) mmol/L Carbon Dioxide 40 H* (21-32) mmol/L Anion Gap 15.0 H (6-13) BUN 93 H* (6-20) mg/dL Creatinine 2.3 H (0.6-1.2) mg/dL Estimated GFR (MDRD) 28 L (>89) Glucose 241 H (70-100) mg/dL Lactic Acid (0.5-2.2) mmol/L Calcium 9.4 (8.5-10.3) mg/dL Total Bilirubin 1.5 H (0.2-1.0) mg/dL AST 30 (10-42) IU/L ALT 31 (10-60) IU/L Alkaline Phosphatase 37 L (42-121) IU/L Ammonia 81.6 H* (7-35) umol/L Total Protein 6.4 L (6.7-8.2) g/dL Albumin 3.2 (3.2-5.5) g/dL Globulin 3.2 (2.1-4.2) g/dL Albumin/Globulin Ratio 1.0 (1.0-2.2) 04/07/18 04/07/18 Range/Units 23:15 21:50 WBC (4.8-10.8) x10^3/uL RBC (4.70-6.10) 10^6/uL Hgb (14.0-18.0) g/dL Hct (42.0-52.0) % MCV (80.0-94.0) fL MCH (27.0-31.0) pg MCHC (32.0-36.0) g/dL RDW (12.0-15.0) % Plt Count (130-450) 10^3/uL MPV (7.4-11.4) fL Neut # (Auto) Lymph # (Auto) [place] # (Auto) Eos # (Auto) Baso # (Auto) Absolute Nucleated RBC Total Counted Band Neuts % (Manual) (0 - 10) % Abnorm Lymph % (Manual) % Metamyelocytes % ( - 0) % Myelocytes % ( - 0) % Nucleated RBC % Neutrophils # (Manual) (1.5-6.6) 10^3/uL Lymphocytes # (Manual) (1.5-3.5) 10^3/uL Monocytes # (Manual) (0.0-1.0) 10^3/uL Eosinophils # (Manual) (0-0.7) 10^3/uL Basophils # (Manual) (0-0.1) 10^3/uL Differential Comment Platelet Estimate (NORMAL) RBC Morph Micro Appear (NORMAL) Bld Gas Analysis Time 2201 Sample Site LEFT RADIAL ABG pH 7.57 H (7.35-7.45) ABG pCO2 46 H (34-45) mmHg ABG pO2 79 L (80-100) mmHg ABG HCO3 41.0 H (22.0-26.0) mmol/L ABG Total CO2 42.4 H* (21.0-29.0) MMOL/L ABG O2 Saturation 96 (94-98) % ABG Oximetry Spot Check 98 % ABG Base Excess 16.7 H (-2.0-3.0) mmol/L Simeon Test POSITIVE Sodium (135-145) mmol/L Potassium (3.5-5.0) mmol/L Chloride (101-111) mmol/L Carbon Dioxide (21-32) mmol/L Anion Gap (6-13) BUN (6-20) mg/dL Creatinine (0.6-1.2) mg/dL Estimated GFR (MDRD) (>89) Glucose (70-100) mg/dL Lactic Acid 2.4 H (0.5-2.2) mmol/L Calcium (8.5-10.3) mg/dL Total Bilirubin (0.2-1.0) mg/dL AST (10-42) IU/L ALT (10-60) IU/L Alkaline Phosphatase (42-121) IU/L Ammonia (7-35) umol/L Total Protein (6.7-8.2) g/dL Albumin (3.2-5.5) g/dL Globulin (2.1-4.2) g/dL Albumin/Globulin Ratio (1.0-2.2) Impression and Recommendations - Palliative Care Impression: This is a 72-year-old gentleman who presents with sepsis, increasing white count, and progressive kidney failure. Patient has a long list of comorbidities, has been having functional and cognitive decline, is beginning to put into the context decisions regarding patient's lack of quality of life. Palliative care to assist with decision-making, at this point in time we will not transition to higher level care, will do time trial of treatment for the next 24-48 hrs., recognizing patient is gravely ill. Recommendations/Counseling Done: 1. Advanced care planning. Family meeting to establish goals of care for this admit, this is communicated to hospitalist and social worker delinquency prevention. is reaching out to family, will need continued support, would recommend continue to keep her informed and engaged in signs and symptoms of his progress or decline. She does do well with information. Did briefly address home, at this point in time would like [place]. Patient does not have any specific spiritual or orthodox needs, but does like music, may add this to his care plan. Time Spent: 45 minutes with getting 50% of this done in counseling had family conferencing and coordination of care with hospitalist and social worker delinquency prevention.
[2018-04-09] MEDS: MORPHINE 2 MG/ML CARPUJECT IVP PRN ×5 (00:10→21:23)
[2018-04-09] MEDS: SODIUM CHLORIDE FLUSH 0.9% 10 ML SYRINGE IVP SCH ×3 (00:11→17:15)
[2018-04-09] MEDS: INSULIN REGULAR HUMAN 100 UNIT/1 ML 10 ML MDV SUBQ SCH ×5 (00:17→23:47)
--- NOTE | 2018-04-09 01:28 | XRAY Report ---
Reason: NG tube placement confirmation Procedure Date: 04/09/2018 Accession Number: [id number] / [id number] Procedure: XR - Chest 1 View X-Ray CPT Code: 27641 FULL RESULT: EXAM: CHEST RADIOGRAPHY EXAM DATE: 04/09/2018 01:00 AM. CLINICAL HISTORY: NG tube placement confirmation. COMPARISON: CHEST 1 VIEW 04/07/2018 11:51 AM. TECHNIQUE: 1 view. FINDINGS: Lungs/Pleura: Hypoventilatory changes at the left lung base. The lungs are otherwise clear. No pleural effusion or pneumothorax. Mediastinum: Within exam limitations, the cardiomediastinal contour is normal. Other: Nasogastric tube placed to gastric fundus. IMPRESSION: No acute cardiopulmonary process. Nasogastric tube placed to gastric fundus. RADIA
[2018-04-09] MEDS: DEXTROSE 5%-0.45% NACL 1,000 ML IV SCH (02:00)
[2018-04-09] MEDS ORDERED: VANCOMYCIN INJ 1 GM, VANCOMYCIN INJ 250 MG in SODIUM CHLORIDE 0.9% 250 ML IV SCH (02:00)
[2018-04-09 02:01] LABS: BASOPHILS % (AUTO) 0.8 %; HGB - HEMOGLOBIN 12.3 g/dL (14.0-18.0); LYMPHOCYTES % (AUTO) 3.4 %; MEAN CORPUSCULAR HEMOGLOBIN 30.4 pg (27.0-31.0); MEAN CORPUSCULAR HGB CONC 33.3 g/dL (32.0-36.0); MEAN CORPUSCULAR VOLUME 91.3 fL (80.0-94.0); MEAN PLATELET VOLUME 9.1 fL (7.4-11.4); MONOCYTES % (AUTO) 2.9 %; NEUTROPHILS % (AUTO) 92.9 %; PLT - PLATELET COUNT 276 10^3/uL (130-450); RED BLOOD COUNT 4.03 10^6/uL (4.70-6.10); RED CELL DISTRIBUTION WIDTH 14.3 % (12.0-15.0); WHITE BLOOD COUNT 33.8 x10^3/uL (4.8-10.8)
[2018-04-09 02:03] LABS: ABNORMAL LYMPHS % (MANUAL) 0 %
[2018-04-09 02:05] LABS: VANCOMYCIN,RANDOM 16.5 ug/mL
[2018-04-09] MEDS ORDERED: SODIUM CHLORIDE 0.9% 1,000 ML IV SCH (02:22)
[2018-04-09 02:41] LABS: ALBUMIN 2.6 g/dL (3.2-5.5); CALCIUM 8.4 mg/dL (8.5-10.3); CREATININE 4.3 mg/dL (0.6-1.2); TOTAL PROTEIN 5.1 g/dL (6.7-8.2)
[2018-04-09 03:22] LABS: BAND NEUTROPHILS % (MANUAL) 3 %; DIFFERENTIAL COMMENT MANUAL DIFFERENTIAL; LYMPHOCYTES % (MANUAL) 6 %; METAMYELOCYTES % (MANUAL) 1 %; MONOCYTES # (MANUAL) 1.7 10^3/uL (0.0-1.0); MYELOCYTES % (MANUAL) 1 %; NEUTROPHILS # (MANUAL) 29.4 10^3/uL (1.5-6.6); NEUTROPHILS % (MANUAL) 84 %; PLATELET ESTIMATE, MANUAL NORMAL (130-450,000) (NORMAL); RBC MORPHOLOGY (MULTIPLE) NORMAL APPEARANCE (NORMAL)
[2018-04-09] MEDS: metroNIDAZOLE 500 MG/100 ML 500 MG/100 ML BAG IV SCH ×3 (03:38→17:15)
[2018-04-09] MEDS: LINEZOLID 600 MG/300 ML 600 MG/300 ML BAG IV SCH ×2 (03:38→15:10)
[2018-04-09] MEDS ORDERED: CEFEPIME 2 GM in SODIUM CHLORIDE 0.9% MINIBAG 100 ML IV SCH (04:00)
[2018-04-09] MEDS: LORazepam 2 MG/ML VIAL IVP PRN ×4 (05:54→22:22)
[2018-04-09] MEDS: POLYETHYLENE GLYCOL 3350 17 GM PACKET PO SCH (09:06)
[2018-04-09] MEDS: D5NS W/20 MEQ KCL 1,000 ML IV SCH ×2 (10:00→21:12)
[2018-04-09] MEDS ORDERED: DEXTROSE 5% 1,000 ML IV SCH (10:00)
--- NOTE | 2018-04-09 15:06 | Ultrasound Report ---
Reason: Worsening renal failure Procedure Date: 04/09/2018 Accession Number: [id number] / [id number] Procedure: US - Retroperitoneal CPT Code: FULL RESULT: EXAM: RENAL ULTRASOUND EXAM DATE: 04/09/2018 11:52 AM. CLINICAL HISTORY: Worsening renal failure. COMPARISON: None. TECHNIQUE: Real-time scanning was performed with static images obtained. FINDINGS: Right Kidney: 10 x 5.9 x 5.5 cm. No hydronephrosis. There is a small mid pole cortical cyst measuring 0.8 x 0.9 x 0.7 cm. Left Kidney: 10.7 x 5.3 x 4.7 cm. There is a small mid pole cyst measuring 0.8 x 0.8 x 0.9 cm. There is no hydronephrosis. Bladder: The bladder is empty. Bladder jets not visible. Other: None. IMPRESSION: 1. No hydronephrosis. RADIA
--- NOTE | 2018-04-09 17:18 | PROVIDER PROGRESS NOTE ---
Assessment/Plan - Problem List (1) Septic shock Assessment/Plan: Source is not clear. Blood and urine has not grown any bacteria. His antibiotics were broadened last night. (2) Metabolic alkalosis with respiratory acidosis Assessment/Plan: lkalosis, Hypernatremia and rising creat all suggest intravascular volume depletion. Continue iv hydration. (3) Acute on chronic renal insufficiency Assessment/Plan: there is daily worsening if his GFR, despite iv fluids. Urine output is minimal. I discussed signs of Uremia and his poor prognosis with and she reiterated that no transfer to higher level of care hospitals would be considered. Will continue medical management andd reassess after 24-48 more hours and if he continues to decline, she may transition to [facility] for him. (4) Diabetes Qualifiers: Diabetes mellitus type: other specified (including ROSELINE) Diabetes mellitus nursing home insulin use: with nursing home use Diabetes mellitus complication status: with unspecified complications Qualified Code(s): E13.8 - Other specified diabetes mellitus with unspecified complications Assessment/Plan: Due to his marked hypernatremia, iv fluids need to be D5 (free water). Will continue glu checks and cover high glu readings with ss Insulin coverage. - Current Meds Current Meds: Current Medications Generic Name Dose Route Start Last Admin Trade Name Freq PRN Reason Stop Dose Admin Norepinephrine Bitartrate 8 mg 250 mls @ 15 mls/hr 04/08/18 01:00 04/09/18 10:20 / Dextrose IV Not Given .[id number] FLORIN Protocol 8 MCG/MIN Linezolid 600 mg in 300 mls @ 300 mls/hr 04/09/18 03:00 04/09/18 16:40 Zyvox 600 Mg/300 Ml IV Infused Q12H FLORIN Infusion Metronidazole 500 mg in 100 mls @ 100 mls/hr 04/09/18 03:00 04/09/18 11:20 Flagyl 500 Mg/100 Ml IV Infused Q8H FLORIN Infusion Potassium Chloride/Dextrose/Sod Cl 1,000 mls @ 125 mls/hr 04/09/18 10:00 04/09/18 17:00 IV 125 mls/hr .Q8H FLORIN Infusion Insulin Human Regular 1 - 9 unit 04/08/18 12:00 04/09/18 11:43 Novolin R SUBQ 3 unit Q6HR FLORIN Administration Protocol Lorazepam 1 mg 04/09/18 02:23 04/09/18 15:18 Ativan Inj (Vial) IVP 1 mg Q2H PRN Administration Anxiety Morphine Sulfate 1 mg 04/08/18 23:00 04/09/18 15:19 Morphine (Carpuject) IVP 1 mg Q2HR PRN Administration PAIN Polyethylene Glycol 17 gm 04/08/18 09:00 04/09/18 09:06 Miralax PO 17 gm DAILY FLORIN Administration Sodium Chloride 10 ml 04/07/18 18:30 04/09/18 04:35 Normal Saline Flush 0.9% IVP 10 ml PRN PRN Administration NEEDED PER PROVIDER ORDERS Sodium Chloride 10 ml 04/08/18 01:00 04/09/18 09:07 Normal Saline Flush 0.9% IVP 10 ml 0100,0900,1700 FLORIN Administration - Lab Result Fish Bone Diagrams: 04/09/18 01:46 04/09/18 01:46 - Additional Planning My Orders: My Active Orders 04/09/18 10:00 D5ns W/20 Meq KCl 1,000 ml IV 125 mls/hr 04/10/18 05:00 LIPASE [CHEM] Routine Subjective - Subjective Patient Reports: Other (Unresponsive) Objective Vital Signs: Vital Signs - 24 hr 04/08/18 04/08/18 04/08/18 18:00 19:00 19:43 Temperature 36.8 C Heart Rate [ 112 H 102 H Monitoring electrodes] Respiratory 29 H 17 Rate Blood Pressure [Left Brachial artery] Blood Pressure [Right Ankle] Blood Pressure 95/68 91/55 L [Right Brachial artery] O2 Saturation 95 100 04/08/18 04/08/18 04/08/18 20:00 21:02 21:20 Temperature Heart Rate [ 96 108 H Monitoring electrodes] Respiratory 26 H 30 H Rate Blood Pressure 104/91 H [Left Brachial artery] Blood Pressure 107/71 [Right Ankle] Blood Pressure [Right Brachial artery] O2 Saturation 100 100 04/08/18 04/08/18 04/09/18 22:00 23:00 00:00 Temperature 36.7 C Heart Rate [ 91 98 96 Monitoring electrodes] Respiratory 26 H 24 16 Rate Blood Pressure [Left Brachial artery] Blood Pressure 107/74 101/72 109/73 [Right Ankle] Blood Pressure [Right Brachial artery] O2 Saturation 100 100 99 04/09/18 04/09/18 04/09/18 01:00 02:00 03:00 Temperature 36.6 C Heart Rate [ 101 H 108 H 99 Monitoring electrodes] Respiratory 23 20 24 Rate Blood Pressure [Left Brachial artery] Blood Pressure 112/67 99/72 108/71 [Right Ankle] Blood Pressure [Right Brachial artery] O2 Saturation 99 98 99 04/09/18 04/09/18 04/09/18 04:00 05:00 06:00 Temperature Heart Rate [ 108 H 100 102 H Monitoring electrodes] Respiratory 26 H 11 L 16 Rate Blood Pressure [Left Brachial artery] Blood Pressure 131/76 H 110/64 98/64 [Right Ankle] Blood Pressure [Right Brachial artery] O2 Saturation 98 99 99 04/09/18 04/09/18 04/09/18 07:00 07:06 08:00 Temperature 36.3 C L Heart Rate [ 99 100 Monitoring electrodes] Respiratory 8 L 19 Rate Blood Pressure [Left Brachial artery] Blood Pressure 87/61 L 100/65 115/67 [Right Ankle] Blood Pressure [Right Brachial artery] O2 Saturation 99 100 04/09/18 04/09/18 04/09/18 10:00 12:00 14:00 Temperature 36.3 C L 36.3 C L 36.3 C L Heart Rate [ 92 104 H 100 Monitoring electrodes] Respiratory 20 17 21 Rate Blood Pressure [Left Brachial artery] Blood Pressure 132/73 H 114/72 128/84 H [Right Ankle] Blood Pressure [Right Brachial artery] O2 Saturation 98 99 95 04/09/18 16:00 Temperature Heart Rate [ 90 Monitoring electrodes] Respiratory 18 Rate Blood Pressure [Left Brachial artery] Blood Pressure 118/69 [Right Ankle] Blood Pressure [Right Brachial artery] O2 Saturation 97 Oxygen O2 Source [With Activity] Room air O2 Source [Without Activity] Room air O2 Source Nasal cannula I&O (Last 24 Hrs): Intake and Output Totals x24h 04/07/18 04/08/18 04/09/18 23:59 23:59 23:59 Intake Total 500 4165.833 4308.667 Output Total 1210 2224 2189 Balance -710 5807.058 3443.667 General: Other (Obtunded, moves minimally spontaneously) HEENT: Mucous membr. moist/pink Neck: Supple Neuro: Other (Unresponsive) Cardiovascular: No murmurs Respiratory: No respiratory distress, Breath sounds nml Abdomen: Other (Distended, ng tube in place) Extremities: Other (1-2+ edema, minimal redness of shins) - Results Results: Laboratory Results WBC 33.8 x10^3/uL (4.8-10.8) H 04/09/18 01:46 RBC 4.03 10^6/uL (4.70-6.10) L 04/09/18 01:46 Hgb 12.3 g/dL (14.0-18.0) L 04/09/18 01:46 Hct 36.8 % (42.0-52.0) L 04/09/18 01:46 MCV 91.3 fL (80.0-94.0) 04/09/18 01:46 MCH 30.4 pg (27.0-31.0) 04/09/18 01:46 MCHC 33.3 g/dL (32.0-36.0) 04/09/18 01:46 RDW 14.3 % (12.0-15.0) 04/09/18 01:46 Plt Count 276 10^3/uL (130-450) 04/09/18 01:46 MPV 9.1 fL (7.4-11.4) 04/09/18 01:46 Neut # (Auto) Not Reportable 04/09/18 01:46 Lymph # (Auto) Not Reportable 04/09/18 01:46 [place] # (Auto) Not Reportable 04/09/18 01:46 Eos # (Auto) Not Reportable 04/09/18 01:46 Baso # (Auto) Not Reportable 04/09/18 01:46 Absolute Nucleated RBC Not Reportable 04/09/18 01:46 Total Counted 100 04/09/18 01:46 Band Neuts % (Manual) 3 % (0-10) 04/09/18 01:46 Abnorm Lymph % (Manual) 0 % 04/09/18 01:46 Metamyelocytes % 1 % (-0) H 04/09/18 01:46 Myelocytes % 1 % (-0) H 04/09/18 01:46 Nucleated RBC % Not Reportable 04/09/18 01:46 Neutrophils # (Manual) 29.4 10^3/uL (1.5-6.6) H 04/09/18 01:46 Lymphocytes # (Manual) 2.0 10^3/uL (1.5-3.5) 04/09/18 01:46 Monocytes # (Manual) 1.7 10^3/uL (0.0-1.0) H 04/09/18 01:46 Eosinophils # (Manual) 0.0 10^3/uL (0-0.7) 04/09/18 01:46 Basophils # (Manual) 0.0 10^3/uL (0-0.1) 04/09/18 01:46 Differential Comment MANUAL DIFFERENTIAL 04/09/18 01:46 Platelet Estimate NORMAL (130-450,000) (NORMAL) 04/09/18 01:46 RBC Morph Micro Appear NORMAL APPEARANCE (NORMAL) 04/09/18 01:46 Bld Gas Analysis Time 220004/07/18 21:50 Sample Site LEFT RADIAL 04/07/18 21:50 ABG pH 7.57 (7.35-7.45) H 04/07/18 21:50 ABG pCO2 46 mmHg (34-45) H 04/07/18 21:50 ABG pO2 79 mmHg (80-100) L 04/07/18 21:50 ABG HCO3 41.0 mmol/L (22.0-26.0) H 04/07/18 21:50 ABG Total CO2 42.4 MMOL/L (21.0-29.0) H* 04/07/18 21:50 ABG O2 Saturation 96 % (94-98) 04/07/18 21:50 ABG Oximetry Spot Check 98 % 04/07/18 21:50 ABG Base Excess 16.7 mmol/L (-2.0-3.0) H 04/07/18 21:50 Simeon Test POSITIVE 04/07/18 21:50 O2 Delivery Device NASAL CANNULA 04/07/18 11:37 O2 Liters/Min 4.00 LPM 04/07/18 11:37 Sodium 155 mmol/L (135-145) H* 04/09/18 01:46 Potassium 3.3 mmol/L (3.5-5.0) L 04/09/18 01:46 Chloride 101 mmol/L (101-111) 04/09/18 01:46 Carbon Dioxide 39 mmol/L (21-32) H* 04/09/18 01:46 Anion Gap 15.0 (6-13) H 04/09/18 01:46 BUN 148 mg/dL (6-20) H* 04/09/18 01:46 Creatinine 4.3 mg/dL (0.6-1.2) H 04/09/18 01:46 Estimated GFR (MDRD) 14 (>89) L 04/09/18 01:46 Glucose 294 mg/dL (70-100) H 04/09/18 01:46 Lactic Acid 1.4 mmol/L (0.5-2.2) 04/08/18 09:52 Calcium 8.4 mg/dL (8.5-10.3) L 04/09/18 01:46 Magnesium 2.2 mg/dL (1.7-2.8) 04/07/18 11:18 Total Bilirubin 1.0 mg/dL (0.2-1.0) 04/09/18 01:46 AST 24 IU/L (10-42) 04/09/18 01:46 ALT 14 IU/L (10-60) 04/09/18 01:46 Alkaline Phosphatase 36 IU/L (42-121) L 04/09/18 01:46 Ammonia 43.2 umol/L (7-35) H 04/08/18 06:32 Total Protein 5.1 g/dL (6.7-8.2) L 04/09/18 01:46 Albumin 2.6 g/dL (3.2-5.5) L 04/09/18 01:46 Globulin 2.5 g/dL (2.1-4.2) 04/09/18 01:46 Albumin/Globulin Ratio 1.0 (1.0-2.2) 04/09/18 01:46 Lipase 79 U/L (22-51) H 04/07/18 11:18 Urine Color YELLOW 04/07/18 11:44 Urine Clarity CLEAR (CLEAR) 04/07/18 11:44 Urine pH 7.0 PH (5.0-7.5) 04/07/18 11:44 Ur Specific [place] 1.010 (1.002-1.030) 04/07/18 11:44 Urine Protein NEGATIVE mg/dL (NEGATIVE) 04/07/18 11:44 Urine Glucose (UA) NEGATIVE mg/dL (NEGATIVE) 04/07/18 11:44 Urine Ketones NEGATIVE mg/dL (NEGATIVE) 04/07/18 11:44 Urine Occult Blood NEGATIVE (NEGATIVE) 04/07/18 11:44 Urine Nitrite NEGATIVE (NEGATIVE) 04/07/18 11:44 Urine Bilirubin NEGATIVE (NEGATIVE) 04/07/18 11:44 Urine Urobilinogen 1 (NORMAL) E.U./dL (NORMAL) 04/07/18 11:44 Ur Leukocyte Esterase NEGATIVE (NEGATIVE) 04/07/18 11:44 Ur Microscopic Review NOT INDICATED 04/07/18 11:44 Urine Culture Comments NOT INDICATED 04/07/18 11:44 Last Dose Date 04-08-18 04/09/18 01:46 Last Dose Time 0854 04/09/18 01:46 Random Vancomycin 16.5 ug/mL 04/09/18 01:46 - Procedures Procedures: Procedures SPINAL TAP (11/18/13) VENOUS CATHETERIZATION NEC (11/18/13) ABX Reporting Has patient been on IV antibiotics over the past 48 hours?: Yes
[2018-04-10] MEDS: metroNIDAZOLE 500 MG/100 ML 500 MG/100 ML BAG IV SCH ×3 (02:54→18:00)
[2018-04-10] MEDS: LINEZOLID 600 MG/300 ML 600 MG/300 ML BAG IV SCH ×2 (02:55→14:30)
[2018-04-10] MEDS: SODIUM CHLORIDE FLUSH 0.9% 10 ML SYRINGE IVP SCH ×3 (03:34→16:35)
[2018-04-10] MEDS: LORazepam 2 MG/ML VIAL IVP PRN ×7 (04:19→23:25)
[2018-04-10] MEDS: MORPHINE 2 MG/ML CARPUJECT IVP PRN ×6 (04:50→23:24)
[2018-04-10 05:26] LABS: BASOPHILS % (AUTO) 0.1 %; EOSINOPHILS % (AUTO) 0.1 %; HGB - HEMOGLOBIN 10.4 g/dL (14.0-18.0); LYMPHOCYTES % (AUTO) 6.2 %; MEAN CORPUSCULAR HEMOGLOBIN 30.5 pg (27.0-31.0); MEAN CORPUSCULAR HGB CONC 32.7 g/dL (32.0-36.0); MEAN CORPUSCULAR VOLUME 93.1 fL (80.0-94.0); MEAN PLATELET VOLUME 9.7 fL (7.4-11.4); MONOCYTES % (AUTO) 3.9 %; NEUTROPHILS % (AUTO) 89.7 %; PLT - PLATELET COUNT 195 10^3/uL (130-450); RED BLOOD COUNT 3.42 10^6/uL (4.70-6.10); RED CELL DISTRIBUTION WIDTH 14.1 % (12.0-15.0); WHITE BLOOD COUNT 20.9 x10^3/uL (4.8-10.8)
[2018-04-10] MEDS: INSULIN REGULAR HUMAN 100 UNIT/1 ML 10 ML MDV SUBQ SCH ×4 (05:28→23:38)
[2018-04-10] MEDS: CEFEPIME 1 GM in SODIUM CHLORIDE 0.9% MINIBAG 100 ML IV SCH (05:32)
[2018-04-10 05:49] LABS: ABNORMAL LYMPHS % (MANUAL) 0 %; BAND NEUTROPHILS % (MANUAL) 0 %
[2018-04-10 06:07] LABS: ALBUMIN 2.4 g/dL (3.2-5.5); BILIRUBIN,TOTAL 0.9 mg/dL (0.2-1.0); CALCIUM 8.2 mg/dL (8.5-10.3); CREATININE 4.7 mg/dL (0.6-1.2); TOTAL PROTEIN 4.7 g/dL (6.7-8.2)
[2018-04-10 06:57] LABS: DIFFERENTIAL COMMENT MANUAL DIFFERENTIAL; LYMPHOCYTES # (MANUAL) 1.9 10^3/uL (1.5-3.5); LYMPHOCYTES % (MANUAL) 9 %; METAMYELOCYTES % (MANUAL) 1 %; MONOCYTES # (MANUAL) 0.8 10^3/uL (0.0-1.0); MYELOCYTES % (MANUAL) 1 %; NEUTROPHILS # (MANUAL) 17.8 10^3/uL (1.5-6.6); NEUTROPHILS % (MANUAL) 85 %; PLATELET ESTIMATE, MANUAL NORMAL (130-450,000) (NORMAL); RBC MORPHOLOGY (MULTIPLE) NORMAL APPEARANCE (NORMAL)
[2018-04-10] MEDS ORDERED: D5.45NS W/20 MEQ KCL 1,000 ML IV SCH (07:00)
[2018-04-10] MEDS: D5NS W/20 MEQ KCL 1,000 ML IV SCH (07:05)
[2018-04-10] MEDS: POLYETHYLENE GLYCOL 3350 17 GM PACKET PO SCH (08:20)
--- NOTE | 2018-04-10 15:34 | CT Report ---
Reason: Unresponsive Procedure Date: 04/10/2018 Accession Number: [id number] / [id number] Procedure: CT - Head W/O CPT Code: FULL RESULT: EXAM: CT HEAD EXAM DATE: 04/10/2018 02:26 PM. CLINICAL HISTORY: Unresponsive. COMPARISON: HEAD W/O 04/07/2018 12:09 AM. TECHNIQUE: Multiaxial CT images were obtained from the foramen magnum to the vertex. Reformats: Sagittal and coronal. IV contrast: None. In accordance with CT protocol optimization, one or more of the following dose reduction techniques were utilized for this exam: automated exposure control, adjustment of mA and/or KV based on patient size, or use of iterative reconstructive technique. FINDINGS: Parenchyma: No intraparenchymal hemorrhage. No evidence of mass, midline shift, or CT findings of infarction. Pina-white differentiation is distinct. Extraaxial Spaces: Normal for age. No subdural or epidural collections identified. Ventricles: Normal in size and position. Sinuses and Orbits: Imaged paranasal sinuses, orbits, and mastoids show no significant abnormality. Bones: No evidence of fracture or calvarial defect. Other: None. IMPRESSION: Negative nonenhanced head CT. RADIA
--- NOTE | 2018-04-10 15:40 | PROVIDER PROGRESS NOTE ---
Assessment/Plan - Problem List (1) Encephalopathy, metabolic Assessment/Plan: Head CT to be repeated today. (2) Septic shock Assessment/Plan: Resolved hypotension and improving WBC, but no source of infection found. Will CT the abdomen. (3) Metabolic alkalosis with respiratory acidosis Assessment/Plan: Continue with iv fluids and free water per ng, for hydration. Watch BMP daily. (4) Acute on chronic renal insufficiency Assessment/Plan: Slower increase in creat since yesterday and he is making more urine per hour. Continue iv and ng fluids. Monitor Vanco levels and BMP daily. (5) Diabetes Qualifiers: Diabetes mellitus type: other specified (including ROSELINE) Diabetes mellitus nursing home insulin use: with nursing home use Diabetes mellitus complication status: with unspecified complications Qualified Code(s): E13.8 - Other specified diabetes mellitus with unspecified complications Assessment/Plan: Continue NPO ss Insulin coverage with glu checks. (6) Hypernatremia Assessment/Plan: Severe increased Na. Continue with peripheral iv hydration and free water per ng. Monitor BMP daily. - Current Meds Current Meds: Current Medications Generic Name Dose Route Start Last Admin Trade Name Grahamq PRN Reason Stop Dose Admin Norepinephrine Bitartrate 8 mg 250 mls @ 15 mls/hr 04/08/18 01:00 04/10/18 03:34 / Dextrose IV Not Given .[id number] FLORIN Protocol 8 MCG/MIN Linezolid 600 mg in 300 mls @ 300 mls/hr 04/09/18 03:00 04/10/18 14:30 Zyvox 600 Mg/300 Ml IV 200 mls/hr Q12H FLORIN Administration Metronidazole 500 mg in 100 mls @ 100 mls/hr 04/09/18 03:00 04/10/18 10:25 Flagyl 500 Mg/100 Ml IV Infused Q8H FLORIN Infusion Cefepime HCl 1 gm/ Sodium 100 mls @ 200 mls/hr 04/10/18 06:00 04/10/18 06:02 Chloride IV Infused DAILY@0600 FLORIN Infusion Potassium Chloride/Dextrose/Sod Cl 1,000 mls @ 125 mls/hr 04/10/18 07:00 04/10/18 14:30 D5.45ns W/20 Meq Kcl IV 0 mls/hr .Q8H FLORIN Infusion Insulin Human Regular 1 - 9 unit 04/08/18 12:00 04/10/18 11:55 Novolin R SUBQ 1 unit Q6HR FLORIN Administration Protocol Lorazepam 1 mg 04/09/18 02:23 04/10/18 13:54 Ativan Inj (Vial) IVP 1 mg Q2H PRN Administration Anxiety Morphine Sulfate 1 mg 04/08/18 23:00 04/10/18 13:53 Morphine (Carpuject) IVP 1 mg Q2HR PRN Administration PAIN Polyethylene Glycol 17 gm 04/08/18 09:00 04/10/18 08:20 Miralax PO 17 gm DAILY FLORIN Administration Sodium Chloride 10 ml 04/07/18 18:30 04/09/18 04:35 Normal Saline Flush 0.9% IVP 10 ml PRN PRN Administration NEEDED PER PROVIDER ORDERS Sodium Chloride 10 ml 04/08/18 01:00 04/10/18 09:10 Normal Saline Flush 0.9% IVP 10 ml 0100,0900,1700 FLORIN Administration - Lab Result Fish Bone Diagrams: 04/10/18 04:54 04/10/18 04:54 - Additional Planning My Orders: My Active Orders 04/10/18 13:30 Abdomen W/O [CT] Routine 04/10/18 13:31 NPO [DIET] Subjective - Subjective Patient Reports: Other (Non-communicative. reports he was more mobile, agitated, especially overnight.) Objective Vital Signs: Vital Signs - 24 hr 04/09/18 04/09/18 04/09/18 16:00 19:11 21:00 Temperature 36.3 C L Heart Rate [ 90 92 98 Monitoring electrodes] Respiratory 18 13 23 Rate Blood Pressure 130/69 123/86 H [Left ankle] Blood Pressure 118/69 [Right Ankle] O2 Saturation 97 100 98 04/09/18 04/10/18 04/10/18 23:50 05:14 08:47 Temperature 36.4 C L 36.4 C L 36.5 C Heart Rate [ 93 85 100 Monitoring electrodes] Respiratory 19 18 21 Rate Blood Pressure 108/71 108/85 H 100/65 [Left ankle] Blood Pressure [Right Ankle] O2 Saturation 98 95 97 04/10/18 13:00 Temperature 36.4 C L Heart Rate [ 90 Monitoring electrodes] Respiratory 13 Rate Blood Pressure 109/65 [Left ankle] Blood Pressure [Right Ankle] O2 Saturation 93 Oxygen O2 Source [With Activity] Room air O2 Source [Without Activity] Room air O2 Source Room air I&O (Last 24 Hrs): Intake and Output Totals x24h 04/08/18 04/09/18 04/10/18 23:59 23:59 23:59 Intake Total 4165.833 5271.167 2910.835 Output Total 2224 3074 2122 Balance 9504.116 4567.167 788.835 General: Other (Unresponsive) HEENT: Mucous membr. moist/pink, Other (Has ng tube) Neck: Supple Neuro: Other (Obtunded) Cardiovascular: No murmurs Respiratory: No respiratory distress, Breath sounds nml Abdomen: Soft, Other (Decreased bowel sounds) Extremities: Other (1+ edema, no redness) - Results Results: Laboratory Results WBC 20.9 x10^3/uL (4.8-10.8) H 04/10/18 04:54 RBC 3.42 10^6/uL (4.70-6.10) L 04/10/18 04:54 Hgb 10.4 g/dL (14.0-18.0) L 04/10/18 04:54 Hct 31.9 % (42.0-52.0) L 04/10/18 04:54 MCV 93.1 fL (80.0-94.0) 04/10/18 04:54 MCH 30.5 pg (27.0-31.0) 04/10/18 04:54 MCHC 32.7 g/dL (32.0-36.0) 04/10/18 04:54 RDW 14.1 % (12.0-15.0) 04/10/18 04:54 Plt Count 195 10^3/uL (130-450) 04/10/18 04:54 MPV 9.7 fL (7.4-11.4) 04/10/18 04:54 Neut # (Auto) Not Reportable 04/10/18 04:54 Lymph # (Auto) Not Reportable 04/10/18 04:54 [place] # (Auto) Not Reportable 04/10/18 04:54 Eos # (Auto) Not Reportable 04/10/18 04:54 Baso # (Auto) Not Reportable 04/10/18 04:54 Absolute Nucleated RBC Not Reportable 04/10/18 04:54 Total Counted 100 04/10/18 04:54 Band Neuts % (Manual) 0 % (0-10) 04/10/18 04:54 Abnorm Lymph % (Manual) 0 % 04/10/18 04:54 Metamyelocytes % 1 % (-0) H 04/10/18 04:54 Myelocytes % 1 % (-0) H 04/10/18 04:54 Nucleated RBC % Not Reportable 04/10/18 04:54 Neutrophils # (Manual) 17.8 10^3/uL (1.5-6.6) H 04/10/18 04:54 Lymphocytes # (Manual) 1.9 10^3/uL (1.5-3.5) 04/10/18 04:54 Monocytes # (Manual) 0.8 10^3/uL (0.0-1.0) 04/10/18 04:54 Eosinophils # (Manual) 0.0 10^3/uL (0-0.7) 04/10/18 04:54 Basophils # (Manual) 0.0 10^3/uL (0-0.1) 04/10/18 04:54 Differential Comment MANUAL DIFFERENTIAL 04/10/18 04:54 Platelet Estimate NORMAL (130-450,000) (NORMAL) 04/10/18 04:54 RBC Morph Micro Appear NORMAL APPEARANCE (NORMAL) 04/10/18 04:54 Bld Gas Analysis Time 22004/07/18 21:50 Sample Site LEFT RADIAL 04/07/18 21:50 ABG pH 7.57 (7.35-7.45) H 04/07/18 21:50 ABG pCO2 46 mmHg (34-45) H 04/07/18 21:50 ABG pO2 79 mmHg (80-100) L 04/07/18 21:50 ABG HCO3 41.0 mmol/L (22.0-26.0) H 04/07/18 21:50 ABG Total CO2 42.4 MMOL/L (21.0-29.0) H* 04/07/18 21:50 ABG O2 Saturation 96 % (94-98) 04/07/18 21:50 ABG Oximetry Spot Check 98 % 04/07/18 21:50 ABG Base Excess 16.7 mmol/L (-2.0-3.0) H 04/07/18 21:50 Simeon Test POSITIVE 04/07/18 21:50 O2 Delivery Device NASAL CANNULA 04/07/18 11:37 O2 Liters/Min 4.00 LPM 04/07/18 11:37 Sodium 157 mmol/L (135-145) H* 04/10/18 04:54 Potassium 3.3 mmol/L (3.5-5.0) L 04/10/18 04:54 Chloride 105 mmol/L (101-111) 04/10/18 04:54 Carbon Dioxide 41 mmol/L (21-32) H* 04/10/18 04:54 Anion Gap 11.0 (6-13) 04/10/18 04:54 BUN 147 mg/dL (6-20) H* 04/10/18 04:54 Creatinine 4.7 mg/dL (0.6-1.2) H 04/10/18 04:54 Estimated GFR (MDRD) 12 (>89) L 04/10/18 04:54 Glucose 263 mg/dL (70-100) H 04/10/18 04:54 Lactic Acid 1.4 mmol/L (0.5-2.2) 04/08/18 09:52 Calcium 8.2 mg/dL (8.5-10.3) L 04/10/18 04:54 Magnesium 2.2 mg/dL (1.7-2.8) 04/07/18 11:18 Total Bilirubin 0.9 mg/dL (0.2-1.0) 04/10/18 04:54 AST 25 IU/L (10-42) 04/10/18 04:54 ALT 11 IU/L (10-60) 04/10/18 04:54 Alkaline Phosphatase 35 IU/L (42-121) L 04/10/18 04:54 Ammonia 43.2 umol/L (7-35) H 04/08/18 06:32 Total Protein 4.7 g/dL (6.7-8.2) L 04/10/18 04:54 Albumin 2.4 g/dL (3.2-5.5) L 04/10/18 04:54 Globulin 2.3 g/dL (2.1-4.2) 04/10/18 04:54 Albumin/Globulin Ratio 1.0 (1.0-2.2) 04/10/18 04:54 Lipase 44 U/L (22-51) 04/10/18 04:54 Urine Color YELLOW 04/07/18 11:44 Urine Clarity CLEAR (CLEAR) 04/07/18 11:44 Urine pH 7.0 PH (5.0-7.5) 04/07/18 11:44 Ur Specific [place] 1.010 (1.002-1.030) 04/07/18 11:44 Urine Protein NEGATIVE mg/dL (NEGATIVE) 04/07/18 11:44 Urine Glucose (UA) NEGATIVE mg/dL (NEGATIVE) 04/07/18 11:44 Urine Ketones NEGATIVE mg/dL (NEGATIVE) 04/07/18 11:44 Urine Occult Blood NEGATIVE (NEGATIVE) 04/07/18 11:44 Urine Nitrite NEGATIVE (NEGATIVE) 04/07/18 11:44 Urine Bilirubin NEGATIVE (NEGATIVE) 04/07/18 11:44 Urine Urobilinogen 1 (NORMAL) E.U./dL (NORMAL) 04/07/18 11:44 Ur Leukocyte Esterase NEGATIVE (NEGATIVE) 04/07/18 11:44 Ur Microscopic Review NOT INDICATED 04/07/18 11:44 Urine Culture Comments NOT INDICATED 04/07/18 11:44 Last Dose Date 04-08-18 04/09/18 01:46 Last Dose Time 0854 04/09/18 01:46 Random Vancomycin 16.5 ug/mL 04/09/18 01:46 - Procedures Procedures: Procedures SPINAL TAP (11/18/13) VENOUS CATHETERIZATION NEC (11/18/13)
[2018-04-10] MEDS: DEXTROSE 5%-0.2% NACL 1,000 ML IV SCH (16:00)
--- NOTE | 2018-04-10 17:12 | CT Report ---
Reason: Sepsis, kidney failure Procedure Date: 04/10/2018 Accession Number: [id number] / [id number] Procedure: CT - Abdomen W/O CPT Code: FULL RESULT: EXAM: CT ABDOMEN EXAM DATE: 04/10/2018 02:26 PM. CLINICAL HISTORY: Sepsis, kidney failure. COMPARISON: None. TECHNIQUE: Routine helical CT imaging was performed through the abdomen. IV contrast: No Enteric contrast: No. Reconstruction: Coronal and sagittal. In accordance with CT protocol optimization, one or more of the following dose reduction techniques were utilized for this exam: automated exposure control, adjustment of mA and/or KV based on patient size, or use of iterative reconstructive technique. FINDINGS: Lung Bases: There is a trace left pleural effusion. Liver: The liver is normal in size. Gallbladder/Bile Ducts: There is a calcified gallstone in the gallbladder. Visualization of the gallbladder limited by motion artifact. Spleen: Normal in size. Pancreas: Normal in size and contour. Adrenal Glands: Normal. Kidneys: No kidney stones or hydronephrosis. Peritoneal Cavity/Bowel: Gastric tube is in stomach. There is no abnormal fluid collection in the abdomen. No dilated bowel or transition zone. Vasculature: There is no abdominal aortic aneurysm. 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 Other: None. IMPRESSION: 1. Cholelithiasis. 2. No abscess, localizing inflammatory process or abnormal fluid collection. RADIA
[2018-04-11] MEDS: DEXTROSE 5%-0.2% NACL 1,000 ML IV SCH ×2 (00:01→12:44)
[2018-04-11] MEDS: SODIUM CHLORIDE FLUSH 0.9% 10 ML SYRINGE IVP SCH ×3 (00:02→16:30)
[2018-04-11] MEDS: LORazepam 2 MG/ML VIAL IVP PRN ×4 (01:09→12:42)
[2018-04-11] MEDS: MORPHINE 2 MG/ML CARPUJECT IVP PRN ×4 (01:11→11:12)
[2018-04-11] MEDS: metroNIDAZOLE 500 MG/100 ML 500 MG/100 ML BAG IV SCH ×2 (03:01→11:08)
[2018-04-11] MEDS: LINEZOLID 600 MG/300 ML 600 MG/300 ML BAG IV SCH (04:11)
[2018-04-11] MEDS: CEFEPIME 1 GM in SODIUM CHLORIDE 0.9% MINIBAG 100 ML IV SCH (05:27)
[2018-04-11 06:28] LABS: BASOPHILS # (AUTO) 0.1 10^3/uL (0.0-0.1); BASOPHILS % (AUTO) 1.1 %; EOSINOPHILS # (AUTO) 0.1 10^3/uL (0.0-0.7); EOSINOPHILS % (AUTO) 0.6 %; HGB - HEMOGLOBIN 9.1 g/dL (14.0-18.0); LYMPHOCYTES # (AUTO) 1.2 10^3/uL (1.5-3.5); LYMPHOCYTES % (AUTO) 10.3 %; MEAN CORPUSCULAR HEMOGLOBIN 30.7 pg (27.0-31.0); MEAN CORPUSCULAR HGB CONC 32.9 g/dL (32.0-36.0); MEAN CORPUSCULAR VOLUME 93.3 fL (80.0-94.0); MONOCYTES # (AUTO) 0.7 10^3/uL (0.0-1.0); MONOCYTES % (AUTO) 6.3 %; NEUTROPHILS # (AUTO) 9.3 10^3/uL (1.5-6.6); NEUTROPHILS % (AUTO) 81.7 %; PLT - PLATELET COUNT 162 10^3/uL (130-450); RED BLOOD COUNT 2.95 10^6/uL (4.70-6.10); RED CELL DISTRIBUTION WIDTH 14.2 % (12.0-15.0); WHITE BLOOD COUNT 11.4 x10^3/uL (4.8-10.8)
[2018-04-11 06:47] LABS: ALBUMIN 2.2 g/dL (3.2-5.5); ALKALINE PHOSPHATASE 34 IU/L (42-121); ALT ALANINE AMINOTRANSFERASE < 10 IU/L (10-60); AST ASPARTATE AMINOTRANSFERASE 27 IU/L (10-42); BILIRUBIN,TOTAL 0.9 mg/dL (0.2-1.0); CALCIUM 8.2 mg/dL (8.5-10.3); CHLORIDE 106 mmol/L (101-111); CREATININE 4.6 mg/dL (0.6-1.2); GFR - MDRD 13 (>89); GLUCOSE 233 mg/dL (70-100); TOTAL PROTEIN 4.5 g/dL (6.7-8.2)
[2018-04-11 06:48] LABS: CARBON DIOXIDE - CO2 43 mmol/L (21-32); SODIUM 155 mmol/L (135-145)
[2018-04-11 06:53] LABS: BUN - BLOOD UREA NITROGEN 130 mg/dL (6-20)
[2018-04-11] MEDS: INSULIN REGULAR HUMAN 100 UNIT/1 ML 10 ML MDV SUBQ SCH ×3 (06:53→18:30)
[2018-04-11] MEDS: POLYETHYLENE GLYCOL 3350 17 GM PACKET PO SCH (09:24)
--- NOTE | 2018-04-11 12:35 | CONSULTATION NOTE ---
Palliative Care Follow Up - Referral Referring Provider: Daphne Shaffer Time of Visit: 1030-11; 12:30-1300 Referral setting: Hospitalized patient Referral Reason: Sepsis/Kidney Failure/Goals of Care - Information Sources Records reviewed: RN notes reviewed, Previous records reviewed History/Review of Systems obtained from: Family ( Jessie consult on phone 1030; in person), Caregiver (clincial staff hospitalist/RN) Exam limitations: Clinical condition (patient non responsive) - History of Present Illness Update Brief HPI Update: This is a 72-year-old gentleman who has been recently hospitalized 04/02-04/06 for cellulitis, COPD exacerbation, and was transferred to [facility] on 04/06. Patient presented that night with nausea and vomiting, decrease in altered mental status worse than baseline, and was rehospitalized on 04/07. Patient presented with metabolic alkalosis, sepsis, and progressive kidney failure. He has had multiple workups to find the source of the infection, as his white count was escalating, his antibiotics have been changed up now with some improvement, his cellulitis does look better, but his kidney status remains quite compromised and he remains non-responsive other than when he is slightly awake quite agitated. Palliative care consult on Wednesday, had agreed to see how he did over the weekend, but recognizing patient's ongoing decline, concerned about quality of life, and ability to ever be able to return home, would consider moving on to comfort care. Social History - Living Situation Living arrangement: At home Living Situation: With spouse/s.o. Support System: his been pretty much the sole caregiver, she has had some help but it is a couple times a week by Gael, who is quite strong. Has had her daughter for support over the weekend, her sister is, as well, she has found this quite helpful in this uncertain time and support for transitioning. Medications/Allergies - Medications Active Medication List: Active Medications Norepinephrine Bitartrate 8 mg (/ Dextrose) 250 mls @ 15 mls/hr IV .[id number] [facility]; Protocol Last Admin: 04/10/18 19:46 Dose: Not Given Linezolid (Zyvox 600 Mg/300 Ml) 600 mg in 300 mls @ 300 mls/hr IV Q12H [facility] Last Infusion: 04/11/18 05:11 Dose: Infused Metronidazole (Flagyl 500 Mg/100 Ml) 500 mg in 100 mls @ 100 mls/hr IV Q8H [facility] Last Admin: 04/11/18 11:08 Dose: 100 mls/hr Cefepime HCl 1 gm/ Sodium (Chloride) 100 mls @ 200 mls/hr IV DAILY@0600 [facility] Last Infusion: 04/11/18 05:57 Dose: Infused Dextrose/Sodium Chloride (D5.2ns) 1,000 mls @ 125 mls/hr IV .Q8H [facility] Last Admin: 04/11/18 00:01 Dose: 125 mls/hr Insulin Human Regular (Novolin R) 1 - 9 unit SUBQ Q6HR [facility]; Protocol Last Admin: 04/11/18 06:53 Dose: 5 unit Lorazepam (Ativan Inj (Vial)) 2 mg IVP Q2H PRN PRN Reason: Anxiety Last Admin: 04/11/18 08:44 Dose: 2 mg Morphine Sulfate (Morphine (Carpuject)) 2 mg IVP Q2HR PRN PRN Reason: PAIN Last Admin: 04/11/18 11:12 Dose: 2 mg Multi-Ingredient Ointment (Zinc Oxide) 1 applic TOP PRN PRN PRN Reason: Skin Care Polyethylene Glycol (Miralax) 17 gm PO DAILY [facility] Last Admin: 04/11/18 09:24 Dose: Not Given Sodium Chloride (Normal Saline Flush 0.9%) 10 ml IVP PRN PRN PRN Reason: NEEDED PER PROVIDER ORDERS Last Admin: 04/09/18 04:35 Dose: 10 ml Sodium Chloride (Normal Saline Flush 0.9%) 10 ml IVP 0100,0900,1700 [facility] Last Admin: 04/11/18 00:02 Dose: Not Given Aspirin [Aspirin EC] 81 mg PO DAILY 11/18/13 Cholecalciferol (Vitamin D3) [Vitamin D3] 1,000 unit PO DAILY 11/18/13 Ferrous Sulfate [Iron] 325 mg PO BID 11/18/13 Finasteride [Proscar] 5 mg PO DAILY 11/18/13 Montelukast Sodium [Singulair] 10 mg PO DAILY 11/18/13 Multivitamin [Multi-Vitamin Daily] 1 each PO DAILY 11/18/13 Omeprazole [PriLOSEC] 40 mg PO QDAC 11/18/13 Paroxetine HCl [Paxil] 20 mg PO DAILY 11/18/13 Torsemide [Demadex] 60 mg PO BID 11/18/13 glipiZIDE [Glucotrol] 5 mg PO 0730 11/18/13 amLODIPine [Norvasc] 5 mg PO DAILY 01/04/16 Donepezil HCl 5 mg PO DAILY 11/24/16 Fenofibrate 160 mg PO DAILY 11/24/16 Potassium Chloride 20 meq PO DAILY 11/24/16 Tamsulosin HCl 0.8 mg PO DAILY 11/24/16 Albuterol 2.5 mg INH Q4H PRN 04/02/18 Albuterol Sulfate [Proair Hfa Inhaler] 2 puffs INH Q4H PRN 04/02/18 Ascorbic Acid [Vitamin C] 500 mg PO DAILY 04/02/18 Docusate Sodium 250Mg Capsule [Colace 250Mg Capsule] 250 mg PO BID 04/02/18 Insulin Aspart [Novolog Flexpen] 1 - 5 unit SUBQ ACHS 04/02/18 Insulin Glargine [Lantus Solostar] 6 units SUBQ QPM 04/02/18 - Allergies Allergies/Adverse Reactions: Allergies Allergy/AdvReac Type Severity Reaction Status Date / Time bacitracin Allergy Severe Unknown Verified 04/07/18 10:46 [From Neosporin ([id number])] bacitracin zinc * Allergy Severe Unknown Verified 04/07/18 10:46 [From Neosporin ([id number])] latex Allergy Severe Unknown Verified 04/07/18 10:46 lovastatin Allergy Severe Unknown Verified 04/07/18 10:46 neomycin sulfate * Allergy Severe Unknown Verified 04/07/18 10:46 [From Neosporin ([id number])] polymyxin B Allergy Severe Unknown Verified 04/07/18 10:46 [From Neosporin ([id number])] pravastatin sodium * Allergy Severe Unknown Verified 04/07/18 10:46 [From Pravachol] trazodone Allergy Unknown Verified 04/07/18 10:46 Review of Systems - Eyes Eyes: reports: Other (eyes closed) - Ears, Nose & Throat Ears, Nose & Throat: reports: Dry mouth - Gastrointestinal Gastrointestinal: reports: Abdominal distention, Other (no intake G tube) - Genitourinary Genitourinary: reports: Other (alvarez catheter) - Musculoskeletal Musculoskeletal: reports: Stiffness, Other (bedbound max assist for turning) - Integumentary Integumentary: reports: Dryness, Other (wounds improved) - Neurological Neurological: reports: Other (patient when arousable noted agitation and restlessness) - Psychiatric Psychiatric: reports: Other (hx of lewey body; confusion/delusions fluctuating ability to interact) - Endocrine Endocrine: reports: Diabetes type 2 - Other Findings Other Findings: limited ROS Physical Exam - Vital Signs Vital Signs: Vital Signs x48h Temp Pulse Resp BP BP Pulse Ox 04/11/18 11:49 36.6 C 82 12 141/59 H 90 L 04/11/18 08:49 36.3 C L 81 14 71/51 L 101/80 96 - Physical Exam General Appearance: positive: Nonresponsive Eyes Bilateral: positive: Other (eyes closed) ENT: positive: Dry mucous membranes Neck: positive: Other (thick neck) Cardiovascular: positive: Regular rate & rhythm Respiratory: positive: Diminished throughout. negative: Rhonchi Abdomen: positive: Soft, Distended, Obese Skin: positive: Pallor, Dryness, Bruising, Wound (less red LE/venous statis; scabbing) Extremities: positive: Pedal edema (trace), Other (bedbound) Neurologic/Psychiatric: positive: Other (unresponsive currently) Palliative Care - POLST Patient has POLST: Yes POLST Status: DNR Pain: Location (seems uncomfortable when arouse; responds to MS 2 mg;) Performance Status: Patient has been bedbound since acute admit on 04/07. When does arouse does seem quite agitated and irritated by NG tube. Needs maximum assist with bed mobility. - Palliative Care Discussion: Initially spoke with by phone on the morning consult. She is very much struggling with transitioning patient to comfort care, though does recognize patient has not shown much improvement even though his white count has improved some. She is very clear on her goals she does not want him to go back to [facility] or care home, we did discuss in the context of her being able to have him home, counseled regarding hospice and the hospice benefit as well as support that is provided by team, but would need to supplement with care to be able to turn and manage him at home. She was able to reflect that, patient most likely would not return to a level of quality of life that would be acceptable or his ability to return back home. Counseling done did find comfort measures, which at this point would be to discontinue antibiotics, discontinue IV fluids, focus on transition to oral meds to evaluate the response and pull NG tube. Need to make sure we have a workable plan to keep him comfortable, and for her to be able to meet his care needs at home. Met with at 1230, she has made the decision in the context after talking to Dr. Rojo that even with the infection improved, his kidneys are still problematic, he is still not going to be back to his baseline even in his confused state. He has been quite agitated, needing Lorazepam and morphine to be comfortable. She does recognize he would no longer be eating or drinking, and expected prognosis would be days to weeks. She had talked to her primary support Gael caregiver, he is able to provide more hours. She does understand if he were to go to a care home at this point in time, it would be private pay. She has identified others that might be able to support her as far as his care at home and is feeling much better about this. In the context of timing, discussed transitioning him to comfort measures today, continue to evaluate his response, and discharged on Wednesday with care plan hopefully intact. If patient was imminently terminal would not be appropriate to transfer. He does feel good actually about being able to take him home for his final days, and feels this would be easier for her son as well to visit him there. Results - Lab Results Lab results reviewed: Yes Fish Bones: 04/11/18 06:20 04/11/18 06:20 Lab and Imaging Results: Lab Results x24hrs 04/11/18 04/11/18 Range/Units 06:20 06:20 WBC 11.4 H (4.8-10.8) x10^3/uL RBC 2.95 L (4.70-6.10) 10^6/uL Hgb 9.1 L (14.0-18.0) g/dL Hct 27.5 L (42.0-52.0) % MCV 93.3 (80.0-94.0) fL MCH 30.7 (27.0-31.0) pg MCHC 32.9 (32.0-36.0) g/dL RDW 14.2 (12.0-15.0) % Plt Count 162 (130-450) 10^3/uL MPV 10.0 (7.4-11.4) fL Neut # (Auto) 9.3 H (1.5-6.6) 10^3/uL Lymph # (Auto) 1.2 L (1.5-3.5) 10^3/uL [place] # (Auto) 0.7 (0.0-1.0) 10^3/uL Eos # (Auto) 0.1 (0.0-0.7) 10^3/uL Baso # (Auto) 0.1 (0.0-0.1) 10^3/uL Absolute Nucleated RBC 0.02 x10^3/uL Nucleated RBC % 0.2 /100WBC Sodium 155 H* (135-145) mmol/L Potassium 3.2 L (3.5-5.0) mmol/L Chloride 106 (101-111) mmol/L Carbon Dioxide 43 H* (21-32) mmol/L Anion Gap 6.0 (6-13) BUN 130 H* (6-20) mg/dL Creatinine 4.6 H (0.6-1.2) mg/dL Estimated GFR (MDRD) 13 L (>89) Glucose 233 H (70-100) mg/dL Calcium 8.2 L (8.5-10.3) mg/dL Total Bilirubin 0.9 (0.2-1.0) mg/dL AST 27 (10-42) IU/L ALT < 10 L (10-60) IU/L Alkaline Phosphatase 34 L (42-121) IU/L Total Protein 4.5 L (6.7-8.2) g/dL Albumin 2.2 L (3.2-5.5) g/dL Globulin 2.3 (2.1-4.2) g/dL Albumin/Globulin Ratio 1.0 (1.0-2.2) Impression and Recommendations - Palliative Care Impression: This is an unfortunate 72-year-old gentleman who now presents with acute on chronic kidney failure, worsening underlying dementia, and bedbound status. Goal at this time is to transition to comfort care, and discharge with hospice after symptoms stabilized. Palliative care providing support and goals of care, and assisting in transition. Recommendations/Counseling Done: 1. Agitation. Would schedule Lorazepam 2 mg orally/s.l. every 6 hours and use 2 mg every 2 hours as needed breakthrough agitation. 's goal is for patient to be peaceful and to minimize suffering. 2. Discomfort. This is multifactorial in origin, hopefully having NG tube out will be more comfortable. Patient also with dyspnea, will leave morphine at 5- 10 mg p.o./SL and evaluate tomorrow as far as transitioning to fentanyl for comfort. Nursing staff to be on high alert for any signs or symptoms of discomfort as again the goals are to have the patient be comfortable and with minimized suffering. 3. Diabetes. [place] with decreased fluids, blood sugars may stabilize. We will transition to short acting only, does know how to administer and can at home if indicated. 4. Advanced care planning. FIONA ST is completed with comfort focused goals/DNAR. Communication with hospice regarding update and arrangements made for Wednesday admit. Patient will need BLS transfer, Rx for comfort meds prior to discharge to have available on arrival. Time Spent: 60 minutes was given 50% of this done in counseling regarding goals of care, pain and symptom management, and anticipatory guidance. Coordination of care with hospice team, hospitalist, and social work
[2018-04-11] MEDS ORDERED: ONDANSETRON ODT 4 MG TABLET TL PRN (13:38)
[2018-04-11] MEDS ORDERED: GLYCOPYRROLATE 1 MG/5 ML VIAL SUBQ PRN (13:38)
--- NOTE | 2018-04-11 14:37 | PROVIDER PROGRESS NOTE ---
Assessment/Plan - Problem List (1) Encephalopathy, metabolic Assessment/Plan: No change in obtundation, except occaisionally appears uncomfortable. Will be starting Comfort Care orders and transitioning to Hospice Care at his own home.. (2) Septic shock Assessment/Plan: The source of infection has not been elucidated. Since he has been made a Comfort Care patient, after spoke to Palliative Care consult, I will change orders (3) SONJA (obstructive sleep apnea) Assessment/Plan: He has not had this treated and today I witnessed apnea when he was sedated with Ativan and Morphine. - Current Meds Current Meds: Current Medications Generic Name Dose Route Start Last Admin Trade Name Freq PRN Reason Stop Dose Admin Insulin Human Regular 1 - 9 unit 04/08/18 12:00 04/11/18 12:33 Novolin R SUBQ 1 unit Q6HR FLORIN Administration Protocol Sodium Chloride 10 ml 04/07/18 18:30 04/09/18 04:35 Normal Saline Flush 0.9% IVP 10 ml PRN PRN Administration NEEDED PER PROVIDER ORDERS Sodium Chloride 10 ml 04/08/18 01:00 04/11/18 12:45 Normal Saline Flush 0.9% IVP Not Given 0100,0900,1700 FLORIN - Lab Result Fish Bone Diagrams: 04/11/18 06:20 04/11/18 06:20 - Additional Planning My Orders: My Active Orders 04/11/18 Hospice Referral [CONS] Routine 04/11/18 13:38 Thakur Insertion [RC] QSHIFT Vital Signs [RC] PRN Glycopyrrolate [Robinul] 0.2 mg SUBQ Q4H PRN Ondansetron Odt [Zofran Odt] 4 mg TL Q8H PRN 04/11/18 13:43 Comfort Care [RC] QSHIFT 04/11/18 13:45 Cooling Unit [RC] prn Turn and Reposition [RC] prn Warming Unit [RC] prn 04/11/18 13:46 Thakur Continuation and Care [RC] QSHIFT 04/11/18 14:02 Morphine Oral Soln [Roxanol] 10 mg PO Q2HR PRN 04/11/18 14:07 LORazepam [Ativan] 0.5 mg SL Q2H PRN 04/11/18 15:00 Coleman Syrup 5 ml PO Q6H LORazepam [Ativan] 0.5 mg SL Q6H Subjective - Subjective Nursing Reports: Other (Remains non-communicative, has had agitation with grimacing for which he was medicated) Objective Vital Signs: Vital Signs - 24 hr 04/10/18 04/10/18 04/11/18 17:00 20:25 00:22 Temperature 36.2 C L 36.8 C 36.8 C Heart Rate [ 89 94 87 Monitoring electrodes] Respiratory 19 14 21 Rate Blood Pressure [Left Radial artery] Blood Pressure 129/75 131/58 H 103/80 [Left ankle] O2 Saturation 93 98 95 04/11/18 04/11/18 04/11/18 04:20 08:49 11:49 Temperature 36.8 C 36.3 C L 36.6 C Heart Rate [ 81 81 82 Monitoring electrodes] Respiratory 15 14 12 Rate Blood Pressure 71/51 L [Left Radial artery] Blood Pressure 97/60 101/80 [Left ankle] O2 Saturation 99 96 90 L 04/11/18 13:00 Temperature 36.5 C Heart Rate [ 77 Monitoring electrodes] Respiratory 12 Rate Blood Pressure [Left Radial artery] Blood Pressure 141/59 H [Left ankle] O2 Saturation 99 Oxygen O2 Source [With Activity] Room air O2 Source [Without Activity] Room air O2 Source Room air I&O (Last 24 Hrs): Intake and Output Totals x24h 04/09/18 04/10/18 04/11/18 23:59 23:59 23:59 Intake Total 5271.167 4411.668 2877.083 Output Total 3074 4112 2150 Balance 2197.167 299.668 727.083 General: Other (Obtunded) HEENT: Mucous membr. moist/pink Neck: Supple Neuro: Other (Moves arms, reaching outward after had apnea briefly while sleeping/sedated.) Cardiovascular: Other (Distant heart sounds) Respiratory: Other (Distant breath sounds) Abdomen: Other (Obese) Extremities: No edema (1+ edema, no cellulitis) - Results Results: Laboratory Results WBC 11.4 x10^3/uL (4.8-10.8) H 04/11/18 06:20 RBC 2.95 10^6/uL (4.70-6.10) L 04/11/18 06:20 Hgb 9.1 g/dL (14.0-18.0) L 04/11/18 06:20 Hct 27.5 % (42.0-52.0) L 04/11/18 06:20 MCV 93.3 fL (80.0-94.0) 04/11/18 06:20 MCH 30.7 pg (27.0-31.0) 04/11/18 06:20 MCHC 32.9 g/dL (32.0-36.0) 04/11/18 06:20 RDW 14.2 % (12.0-15.0) 04/11/18 06:20 Plt Count 162 10^3/uL (130-450) 04/11/18 06:20 MPV 10.0 fL (7.4-11.4) 04/11/18 06:20 Neut # (Auto) 9.3 10^3/uL (1.5-6.6) H 04/11/18 06:20 Lymph # (Auto) 1.2 10^3/uL (1.5-3.5) L 04/11/18 06:20 [place] # (Auto) 0.7 10^3/uL (0.0-1.0) 04/11/18 06:20 Eos # (Auto) 0.1 10^3/uL (0.0-0.7) 04/11/18 06:20 Baso # (Auto) 0.1 10^3/uL (0.0-0.1) 04/11/18 06:20 Absolute Nucleated RBC 0.02 x10^3/uL 04/11/18 06:20 Total Counted 100 04/10/18 04:54 Band Neuts % (Manual) 0 % (0-10) 04/10/18 04:54 Abnorm Lymph % (Manual) 0 % 04/10/18 04:54 Metamyelocytes % 1 % (-0) H 04/10/18 04:54 Myelocytes % 1 % (-0) H 04/10/18 04:54 Nucleated RBC % 0.2 /100WBC 04/11/18 06:20 Neutrophils # (Manual) 17.8 10^3/uL (1.5-6.6) H 04/10/18 04:54 Lymphocytes # (Manual) 1.9 10^3/uL (1.5-3.5) 04/10/18 04:54 Monocytes # (Manual) 0.8 10^3/uL (0.0-1.0) 04/10/18 04:54 Eosinophils # (Manual) 0.0 10^3/uL (0-0.7) 04/10/18 04:54 Basophils # (Manual) 0.0 10^3/uL (0-0.1) 04/10/18 04:54 Differential Comment MANUAL DIFFERENTIAL 04/10/18 04:54 Platelet Estimate NORMAL (130-450,000) (NORMAL) 04/10/18 04:54 RBC Morph Micro Appear NORMAL APPEARANCE (NORMAL) 04/10/18 04:54 Bld Gas Analysis Time 220004/07/18 21:50 Sample Site LEFT RADIAL 04/07/18 21:50 ABG pH 7.57 (7.35-7.45) H 04/07/18 21:50 ABG pCO2 46 mmHg (34-45) H 04/07/18 21:50 ABG pO2 79 mmHg (80-100) L 04/07/18 21:50 ABG HCO3 41.0 mmol/L (22.0-26.0) H 04/07/18 21:50 ABG Total CO2 42.4 MMOL/L (21.0-29.0) H* 04/07/18 21:50 ABG O2 Saturation 96 % (94-98) 04/07/18 21:50 ABG Oximetry Spot Check 98 % 04/07/18 21:50 ABG Base Excess 16.7 mmol/L (-2.0-3.0) H 04/07/18 21:50 Simeon Test POSITIVE 04/07/18 21:50 O2 Delivery Device NASAL CANNULA 04/07/18 11:37 O2 Liters/Min 4.00 LPM 04/07/18 11:37 Sodium 155 mmol/L (135-145) H* 04/11/18 06:20 Potassium 3.2 mmol/L (3.5-5.0) L 04/11/18 06:20 Chloride 106 mmol/L (101-111) 04/11/18 06:20 Carbon Dioxide 43 mmol/L (21-32) H* 04/11/18 06:20 Anion Gap 6.0 (6-13) 04/11/18 06:20 BUN 130 mg/dL (6-20) H* 04/11/18 06:20 Creatinine 4.6 mg/dL (0.6-1.2) H 04/11/18 06:20 Estimated GFR (MDRD) 13 (>89) L 04/11/18 06:20 Glucose 233 mg/dL (70-100) H 04/11/18 06:20 Lactic Acid 1.4 mmol/L (0.5-2.2) 04/08/18 09:52 Calcium 8.2 mg/dL (8.5-10.3) L 04/11/18 06:20 Magnesium 2.2 mg/dL (1.7-2.8) 04/07/18 11:18 Total Bilirubin 0.9 mg/dL (0.2-1.0) 04/11/18 06:20 AST 27 IU/L (10-42) 04/11/18 06:20 ALT < 10 IU/L (10-60) L 04/11/18 06:20 Alkaline Phosphatase 34 IU/L (42-121) L 04/11/18 06:20 Ammonia 43.2 umol/L (7-35) H 04/08/18 06:32 Total Protein 4.5 g/dL (6.7-8.2) L 04/11/18 06:20 Albumin 2.2 g/dL (3.2-5.5) L 04/11/18 06:20 Globulin 2.3 g/dL (2.1-4.2) 04/11/18 06:20 Albumin/Globulin Ratio 1.0 (1.0-2.2) 04/11/18 06:20 Lipase 44 U/L (22-51) 04/10/18 04:54 Urine Color YELLOW 04/07/18 11:44 Urine Clarity CLEAR (CLEAR) 04/07/18 11:44 Urine pH 7.0 PH (5.0-7.5) 04/07/18 11:44 Ur Specific [place] 1.010 (1.002-1.030) 04/07/18 11:44 Urine Protein NEGATIVE mg/dL (NEGATIVE) 04/07/18 11:44 Urine Glucose (UA) NEGATIVE mg/dL (NEGATIVE) 04/07/18 11:44 Urine Ketones NEGATIVE mg/dL (NEGATIVE) 04/07/18 11:44 Urine Occult Blood NEGATIVE (NEGATIVE) 04/07/18 11:44 Urine Nitrite NEGATIVE (NEGATIVE) 04/07/18 11:44 Urine Bilirubin NEGATIVE (NEGATIVE) 04/07/18 11:44 Urine Urobilinogen 1 (NORMAL) E.U./dL (NORMAL) 04/07/18 11:44 Ur Leukocyte Esterase NEGATIVE (NEGATIVE) 04/07/18 11:44 Ur Microscopic Review NOT INDICATED 04/07/18 11:44 Urine Culture Comments NOT INDICATED 04/07/18 11:44 Last Dose Date 04-08-18 04/09/18 01:46 Last Dose Time 0854 04/09/18 01:46 Random Vancomycin 16.5 ug/mL 04/09/18 01:46 - Procedures Procedures: Procedures SPINAL TAP (11/18/13) VENOUS CATHETERIZATION NEC (11/18/13)
[2018-04-11] MEDS: LORazepam 0.5 MG TABLET SL SCH ×2 (15:07→20:36)
[2018-04-11] MEDS: CHERRY SYRUP 10 ML UDC PO SCH ×2 (15:07→20:36)
[2018-04-11] MEDS: MORPHINE SOL 10 MG/0.5 ML SYRINGE PO PRN ×3 (16:24→22:38)
[2018-04-11] MEDS: LORazepam 0.5 MG TABLET SL PRN (17:16)
[2018-04-12] MEDS: LORazepam 0.5 MG TABLET SL PRN (00:04)
[2018-04-12] MEDS: INSULIN REGULAR HUMAN 100 UNIT/1 ML 10 ML MDV SUBQ SCH ×5 (00:08→23:58)
[2018-04-12] MEDS: SODIUM CHLORIDE FLUSH 0.9% 10 ML SYRINGE IVP SCH ×3 (00:09→15:33)
[2018-04-12] MEDS: CHERRY SYRUP 10 ML UDC PO SCH ×4 (03:53→20:51)
[2018-04-12] MEDS: LORazepam 0.5 MG TABLET SL SCH ×4 (03:54→20:51)
[2018-04-12] MEDS: MORPHINE SOL 10 MG/0.5 ML SYRINGE PO PRN ×3 (12:50→21:39)
--- NOTE | 2018-04-12 16:40 | PROVIDER PROGRESS NOTE ---
Assessment/Plan - Problem List (1) Encephalopathy, metabolic Assessment/Plan: Patient under Comfort Care and plan is to send home with BLS tomorrow (since he weighs >200 lbs), under Care of Hospice. All the equipment needed is to be sent to the house today (like barriatric bed). - Current Meds Current Meds: Current Medications Generic Name Dose Route Start Last Admin Trade Name Freq PRN Reason Stop Dose Admin Coleman Syrup 5 ml 04/11/18 15:00 04/12/18 14:53 PO 5 ml Q6H FLORIN Administration Insulin Human Regular 1 - 9 unit 04/08/18 12:00 04/12/18 11:49 Novolin R SUBQ 1 unit Q6HR FLORIN Administration Protocol Lorazepam 0.5 mg 04/11/18 15:00 04/12/18 14:52 Ativan SL 0.5 mg Q6H FLORIN Administration Lorazepam 0.5 mg 04/11/18 14:07 04/12/18 00:04 Ativan SL 0.5 mg Q2H PRN Administration Anxiety Morphine Sulfate 10 mg 04/11/18 14:02 04/12/18 16:29 Roxanol PO 10 mg Q2HR PRN Administration PAIN Ondansetron HCl 4 mg 04/11/18 13:38 04/11/18 16:41 Zofran Odt TL 4 mg Q8H PRN Administration Nausea / Vomiting Sodium Chloride 10 ml 04/07/18 18:30 04/09/18 04:35 Normal Saline Flush 0.9% IVP 10 ml PRN PRN Administration NEEDED PER PROVIDER ORDERS Sodium Chloride 10 ml 04/08/18 01:00 04/12/18 15:33 Normal Saline Flush 0.9% IVP 10 ml 0100,0900,1700 FLORIN Administration - Lab Result Fish Bone Diagrams: 04/11/18 06:20 04/11/18 06:20 Subjective - Subjective Patient Reports: Other (Non-communicative) Objective Vital Signs: Vital Signs - 24 hr 04/11/18 04/12/18 04/12/18 17:52 00:11 07:30 Temperature 36.3 C L 37.0 C Heart Rate [ 82 80 Monitoring electrodes] Respiratory 13 15 Rate Blood Pressure 99/64 [Left Radial artery] O2 Saturation 99 100 100 Oxygen O2 Source [With Activity] Room air O2 Source [Without Activity] Room air O2 Source Nasal cannula I&O (Last 24 Hrs): Intake and Output Totals x24h 04/10/18 04/11/18 04/12/18 23:59 23:59 23:59 Intake Total 4411.668 3002.083 Output Total 4112 2550 1175 Balance 299.668 452.083 -1175 Respiratory: No respiratory distress - Results Results: Laboratory Results WBC 11.4 x10^3/uL (4.8-10.8) H 04/11/18 06:20 RBC 2.95 10^6/uL (4.70-6.10) L 04/11/18 06:20 Hgb 9.1 g/dL (14.0-18.0) L 04/11/18 06:20 Hct 27.5 % (42.0-52.0) L 04/11/18 06:20 MCV 93.3 fL (80.0-94.0) 04/11/18 06:20 MCH 30.7 pg (27.0-31.0) 04/11/18 06:20 MCHC 32.9 g/dL (32.0-36.0) 04/11/18 06:20 RDW 14.2 % (12.0-15.0) 04/11/18 06:20 Plt Count 162 10^3/uL (130-450) 04/11/18 06:20 MPV 10.0 fL (7.4-11.4) 04/11/18 06:20 Neut # (Auto) 9.3 10^3/uL (1.5-6.6) H 04/11/18 06:20 Lymph # (Auto) 1.2 10^3/uL (1.5-3.5) L 04/11/18 06:20 Graves # (Auto) 0.7 10^3/uL (0.0-1.0) 04/11/18 06:20 Eos # (Auto) 0.1 10^3/uL (0.0-0.7) 04/11/18 06:20 Baso # (Auto) 0.1 10^3/uL (0.0-0.1) 04/11/18 06:20 Absolute Nucleated RBC 0.02 x10^3/uL 04/11/18 06:20 Total Counted 100 04/10/18 04:54 Band Neuts % (Manual) 0 % (0-10) 04/10/18 04:54 Abnorm Lymph % (Manual) 0 % 04/10/18 04:54 Metamyelocytes % 1 % (-0) H 04/10/18 04:54 Myelocytes % 1 % (-0) H 04/10/18 04:54 Nucleated RBC % 0.2 /100WBC 04/11/18 06:20 Neutrophils # (Manual) 17.8 10^3/uL (1.5-6.6) H 04/10/18 04:54 Lymphocytes # (Manual) 1.9 10^3/uL (1.5-3.5) 04/10/18 04:54 Monocytes # (Manual) 0.8 10^3/uL (0.0-1.0) 04/10/18 04:54 Eosinophils # (Manual) 0.0 10^3/uL (0-0.7) 04/10/18 04:54 Basophils # (Manual) 0.0 10^3/uL (0-0.1) 04/10/18 04:54 Differential Comment MANUAL DIFFERENTIAL 04/10/18 04:54 Platelet Estimate NORMAL (130-450,000) (NORMAL) 04/10/18 04:54 RBC Morph Micro Appear NORMAL APPEARANCE (NORMAL) 04/10/18 04:54 Bld Gas Analysis Time 22004/07/18 21:50 Sample Site LEFT RADIAL 04/07/18 21:50 ABG pH 7.57 (7.35-7.45) H 04/07/18 21:50 ABG pCO2 46 mmHg (34-45) H 04/07/18 21:50 ABG pO2 79 mmHg (80-100) L 04/07/18 21:50 ABG HCO3 41.0 mmol/L (22.0-26.0) H 04/07/18 21:50 ABG Total CO2 42.4 MMOL/L (21.0-29.0) H* 04/07/18 21:50 ABG O2 Saturation 96 % (94-98) 04/07/18 21:50 ABG Oximetry Spot Check 98 % 04/07/18 21:50 ABG Base Excess 16.7 mmol/L (-2.0-3.0) H 04/07/18 21:50 Simeon Test POSITIVE 04/07/18 21:50 O2 Delivery Device NASAL CANNULA 04/07/18 11:37 O2 Liters/Min 4.00 LPM 04/07/18 11:37 Sodium 155 mmol/L (135-145) H* 04/11/18 06:20 Potassium 3.2 mmol/L (3.5-5.0) L 04/11/18 06:20 Chloride 106 mmol/L (101-111) 04/11/18 06:20 Carbon Dioxide 43 mmol/L (21-32) H* 04/11/18 06:20 Anion Gap 6.0 (6-13) 04/11/18 06:20 BUN 130 mg/dL (6-20) H* 04/11/18 06:20 Creatinine 4.6 mg/dL (0.6-1.2) H 04/11/18 06:20 Estimated GFR (MDRD) 13 (>89) L 04/11/18 06:20 Glucose 233 mg/dL (70-100) H 04/11/18 06:20 POC Whole Bld Glucose 142 mg/dL (70 - 100) H 04/12/18 11:34 Lactic Acid 1.4 mmol/L (0.5-2.2) 04/08/18 09:52 Calcium 8.2 mg/dL (8.5-10.3) L 04/11/18 06:20 Magnesium 2.2 mg/dL (1.7-2.8) 04/07/18 11:18 Total Bilirubin 0.9 mg/dL (0.2-1.0) 04/11/18 06:20 AST 27 IU/L (10-42) 04/11/18 06:20 ALT < 10 IU/L (10-60) L 04/11/18 06:20 Alkaline Phosphatase 34 IU/L (42-121) L 04/11/18 06:20 Ammonia 43.2 umol/L (7-35) H 04/08/18 06:32 Total Protein 4.5 g/dL (6.7-8.2) L 04/11/18 06:20 Albumin 2.2 g/dL (3.2-5.5) L 04/11/18 06:20 Globulin 2.3 g/dL (2.1-4.2) 04/11/18 06:20 Albumin/Globulin Ratio 1.0 (1.0-2.2) 04/11/18 06:20 Lipase 44 U/L (22-51) 04/10/18 04:54 Urine Color YELLOW 04/07/18 11:44 Urine Clarity CLEAR (CLEAR) 04/07/18 11:44 Urine pH 7.0 PH (5.0-7.5) 04/07/18 11:44 Ur Specific [place] 1.010 (1.002-1.030) 04/07/18 11:44 Urine Protein NEGATIVE mg/dL (NEGATIVE) 04/07/18 11:44 Urine Glucose (UA) NEGATIVE mg/dL (NEGATIVE) 04/07/18 11:44 Urine Ketones NEGATIVE mg/dL (NEGATIVE) 04/07/18 11:44 Urine Occult Blood NEGATIVE (NEGATIVE) 04/07/18 11:44 Urine Nitrite NEGATIVE (NEGATIVE) 04/07/18 11:44 Urine Bilirubin NEGATIVE (NEGATIVE) 04/07/18 11:44 Urine Urobilinogen 1 (NORMAL) E.U./dL (NORMAL) 04/07/18 11:44 Ur Leukocyte Esterase NEGATIVE (NEGATIVE) 04/07/18 11:44 Ur Microscopic Review NOT INDICATED 04/07/18 11:44 Urine Culture Comments NOT INDICATED 04/07/18 11:44 Last Dose Date 04-08-18 04/09/18 01:46 Last Dose Time 0854 04/09/18 01:46 Random Vancomycin 16.5 ug/mL 04/09/18 01:46 - Procedures Procedures: Procedures SPINAL TAP (11/18/13) VENOUS CATHETERIZATION NEC (11/18/13) ABX Reporting Has patient been on IV antibiotics over the past 48 hours?: No
--- NOTE | 2018-04-12 21:00 | CONSULTATION NOTE ---
Palliative Care Follow Up - Referral Referring Provider: Daphne Shaffer MD Time of Visit: [id number]; [phone] Referral setting: Hospitalized patient Referral Reason: Acute on Chronic Kidney Failure/COPD/Goals of Care - Information Sources Records reviewed: RN notes reviewed, Previous records reviewed History/Review of Systems obtained from: Family ( Jessie), Caregiver ([facility] staff) Exam limitations: Clinical condition (patient nonresponsive) - History of Present Illness Update Brief HPI Update: This is a 72-year-old gentleman with ongoing decline, and known metabolic acidosis, COPD exacerbation, history of cellulitis, and acute on chronic kidney failure. Patient is continued to deteriorate over this last few days, decision is made to transition to comfort measures. Antibiotics and fluids were stopped yesterday, with the focus on comfort medications and removal of NG tube. Patient has been managed well with her [id number] Lorazepam 0.5 mg every 6 hours and morphine 10 mg as needed breathlessness or signs or symptoms of pain. At this point in time no indication needed of fentanyl patch, will continue to use comfort medications to address intermittent symptoms. Patient appears comfortable, breathing easily, no acute distress on examination in the morning. Social History - Living Situation Living arrangement: At home Living Situation: With spouse/s.o. Support System: Plan is to transition patient home, with hospice support. Arrangements for equipment have been made including bariatric bed. Jessie has been able to find increased support, her sister is with her today. Medications/Allergies - Medications Active Medication List: Active Medications Coleman Syrup () 5 ml PO Q6H FLORIN Last Admin: 04/12/18 20:51 Dose: 5 ml Glycopyrrolate (Robinul) 0.2 mg SUBQ Q4H PRN PRN Reason: Excessive secretions Insulin Human Regular (Novolin R) 1 - 9 unit SUBQ Q6HR FLORIN; Protocol Last Admin: 04/12/18 18:08 Dose: 1 unit Lorazepam (Ativan) 0.5 mg SL Q6H FLORIN Last Admin: 04/12/18 20:51 Dose: 0.5 mg Lorazepam (Ativan) 0.5 mg SL Q2H PRN PRN Reason: Anxiety Last Admin: 04/12/18 00:04 Dose: 0.5 mg Morphine Sulfate (Roxanol) 10 mg PO Q2HR PRN PRN Reason: PAIN Last Admin: 04/12/18 16:29 Dose: 10 mg Multi-Ingredient Ointment (Zinc Oxide) 1 applic TOP PRN PRN PRN Reason: Skin Care Ondansetron HCl (Zofran Odt) 4 mg TL Q8H PRN PRN Reason: Nausea / Vomiting Last Admin: 04/11/18 16:41 Dose: 4 mg Sodium Chloride (Normal Saline Flush 0.9%) 10 ml IVP PRN PRN PRN Reason: NEEDED PER PROVIDER ORDERS Last Admin: 04/09/18 04:35 Dose: 10 ml Sodium Chloride (Normal Saline Flush 0.9%) 10 ml IVP 0100,0900,1700 FLORIN Last Admin: 04/12/18 15:33 Dose: 10 ml Aspirin [Aspirin EC] 81 mg PO DAILY 11/18/13 Cholecalciferol (Vitamin D3) [Vitamin D3] 1,000 unit PO DAILY 11/18/13 Ferrous Sulfate [Iron] 325 mg PO BID 11/18/13 Finasteride [Proscar] 5 mg PO DAILY 11/18/13 Montelukast Sodium [Singulair] 10 mg PO DAILY 11/18/13 Multivitamin [Multi-Vitamin Daily] 1 each PO DAILY 11/18/13 Omeprazole [PriLOSEC] 40 mg PO QDAC 11/18/13 Paroxetine HCl [Paxil] 20 mg PO DAILY 11/18/13 Torsemide [Demadex] 60 mg PO BID 11/18/13 glipiZIDE [Glucotrol] 5 mg PO 0730 11/18/13 amLODIPine [Norvasc] 5 mg PO DAILY 01/04/16 Donepezil HCl 5 mg PO DAILY 11/24/16 Fenofibrate 160 mg PO DAILY 11/24/16 Potassium Chloride 20 meq PO DAILY 11/24/16 Tamsulosin HCl 0.8 mg PO DAILY 11/24/16 Albuterol 2.5 mg INH Q4H PRN 04/02/18 Albuterol Sulfate [Proair Hfa Inhaler] 2 puffs INH Q4H PRN 04/02/18 Ascorbic Acid [Vitamin C] 500 mg PO DAILY 04/02/18 Docusate Sodium 250Mg Capsule [Colace 250Mg Capsule] 250 mg PO BID 04/02/18 Insulin Aspart [Novolog Flexpen] 1 - 5 unit SUBQ ACHS 04/02/18 Insulin Glargine [Lantus Solostar] 6 units SUBQ QPM 04/02/18 - Allergies Allergies/Adverse Reactions: Allergies Allergy/AdvReac Type Severity Reaction Status Date / Time bacitracin Allergy Severe Unknown Verified 04/07/18 10:46 [From Neosporin ([id number])] bacitracin zinc * Allergy Severe Unknown Verified 04/07/18 10:46 [From Neosporin ([id number])] latex Allergy Severe Unknown Verified 04/07/18 10:46 lovastatin Allergy Severe Unknown Verified 04/07/18 10:46 neomycin sulfate * Allergy Severe Unknown Verified 04/07/18 10:46 [From Neosporin ([id number])] polymyxin B Allergy Severe Unknown Verified 04/07/18 10:46 [From Neosporin ([id number])] pravastatin sodium * Allergy Severe Unknown Verified 04/07/18 10:46 [From Pravachol] trazodone Allergy Unknown Verified 04/07/18 10:46 Review of Systems - Ears, Nose & Throat Ears, Nose & Throat: reports: Dry mouth (nursing providing oral care) - Respiratory Respiratory: reports: Apnea (patient with known sleep apnea;) - Gastrointestinal Gastrointestinal: reports: Other (no intake) - Genitourinary Genitourinary: reports: Other (alvarez catheter) - Musculoskeletal Musculoskeletal: reports: Other (bed bound status) - Psychiatric Psychiatric: reports: Aggitation (addressed with medication) - Endocrine Endocrine: reports: Diabetes type 2 (blood sugars remain in controlled range) - Hematologic/Lymphatic Hematologic/Lymphatic: reports: Anemia, Recurrent infections - Other Findings Other Findings: limited ROS Physical Exam - Physical Exam General Appearance: positive: No acute distress, Nonresponsive Eyes Bilateral: positive: Other (eyes closed) ENT: positive: Dry mucous membranes Neck: positive: Other (thick neck) Cardiovascular: positive: Regular rate & rhythm Respiratory: positive: Diminished throughout. negative: Rales Abdomen: positive: Obese Skin: positive: Wound (venous stasis cellulitis much improved; wounds not needing dressing) Extremities: positive: Pedal edema (trace) Neurologic/Psychiatric: positive: Other (nonresponsive) Palliative Care - POLST Patient has POLST: Yes POLST Status: DNR, Comfort Measures Pain: Comment (minimal pain behaviors) - Palliative Care Discussion: Follow-up with at end of day, unfortunately equipment was not delivered, plan is for in the a.m. She reports she has been working with the nurse today, participating in care and administering medications is feeling more comfortable regarding this. Her sister is present, she is feeling good about her decision, and feels supported in this transition. Results - Lab Results Fish Bones: 04/11/18 06:20 04/11/18 06:20 Lab and Imaging Results: Lab Results x24hrs 04/12/18 04/12/18 04/12/18 Range/Units 17:51 11:34 05:56 POC Whole Bld Glucose 148 H 142 H 132 H (70 - 100) mg/dL 04/11/18 04/11/18 04/11/18 Range/Units 23:53 17:58 11:47 POC Whole Bld Glucose 147 H 148 H 179 H (70 - 100) mg/dL 04/10/18 04/10/18 04/10/18 Range/Units 23:33 17:47 11:36 POC Whole Bld Glucose 223 H 233 H 179 H (70 - 100) mg/dL 04/10/18 04/09/18 04/09/18 Range/Units 04:56 23:46 18:18 POC Whole Bld Glucose 236 H 282 H 260 H (70 - 100) mg/dL 04/09/18 04/09/18 04/09/18 Range/Units 11:22 05:57 00:11 POC Whole Bld Glucose 223 H 234 H 263 H (70 - 100) mg/dL 04/08/18 04/08/18 04/08/18 Range/Units 18:03 11:37 07:57 POC Whole Bld Glucose 279 H 261 H 230 H (70 - 100) mg/dL 04/07/18 Range/Units 20:31 POC Whole Bld Glucose 264 H (70 - 100) mg/dL Impression and Recommendations - Palliative Care Impression: This is a 72-year-old gentleman who is transitioning to end-of-life, he does ap pear quiet, with symptoms well controlled. Current regimen effective, appears will be able to manage at home without difficulty. Expected discharge tomorrow and transition to hospice. Recommendations/Counseling Done: 1. Agitation. This is currently controlled on [id number] Lorazepam 0.5 mg with only 1 dose needed for breakthrough agitation. Prescription provided and found Intens[facility] at [facility], will slat pickler and have available for hospice admit. Along with morphine 20 mg per male to give 10 mg every 2 hours as needed any pain behaviors or respiratory distress. 2. Advanced care planning. [facility] is in place, hospice admit is scheduled for tomorrow, BLS transport will be needed. This will be dependent on delivery of equipment. Time Spent: 45 minutes with greater than 50% of this done in counseling and support of and coordination of care with hospitalist.
[2018-04-13] MEDS: LORazepam 0.5 MG TABLET SL SCH ×2 (02:41→09:05)
[2018-04-13] MEDS: SODIUM CHLORIDE FLUSH 0.9% 10 ML SYRINGE IVP SCH ×2 (02:42→10:13)
[2018-04-13] MEDS: CHERRY SYRUP 10 ML UDC PO SCH ×2 (02:42→09:05)
[2018-04-13] MEDS: INSULIN REGULAR HUMAN 100 UNIT/1 ML 10 ML MDV SUBQ SCH ×2 (05:56→12:05)
[2018-04-13] MEDS: MORPHINE SOL 10 MG/0.5 ML SYRINGE PO PRN ×2 (07:55→12:06)
[2018-04-13 08:21] VITALS: BP 114/65
--- NOTE | 2018-04-13 11:17 | Discharge Plan ---
Discharge Plan Disposition: 50 Hospice/Home DC/Xfer Condition: Poor No Smoking: If you smoke, Please STOP! Call for help. Follow-up with: Aden Sam MD [Primary Care Provider] -
--- NOTE | 2018-04-27 12:31 | DISCHARGE SUMMARY ---
Physician: Josselyn Shaffer MD DATE OF ADMISSION: 04/07/2018 DATE OF DISCHARGE: 04/13/2018 HISTORY OF PRESENT ILLNESS: This is a 72-year-old, white male with a history of obesity, diabetes, hypertension, COPD, Lewy body dementia, cellulitis. The patient had just been discharged to [facility], 1 day previously, after admission here for altered mental status, due to cellulitis. The staff at [facility] was concerned of him becoming obtunded, was only awakening to a sternal rub, and he was referred back to the emergency room. The patient was found to have septic shock with a systolic blood pressure of 71, white count newly elevated of 22, lactic acid level of 2.4. The patient was admitted to the ICU. HOSPITAL COURSE AND DISCHARGE DIAGNOSES 1. Septic shock. Patient required IV fluids and pressors. He was fully cultured. He was started on empiric broad-spectrum antibiotics of cefazolin and vancomycin. This was based on the last recent admission, at which time he grew gram-positive cocci on cultures. Patient had obtunded mental status and was not communicative; this did not improve during his hospital course, unlike the last admission. The septic shock affected his renal function with new acute kidney injury (see below) and liver congestion. The wanted us to try aggressive measures for 48 hours, and if no improvement, the plan was for comfort care, which was done (see below). His antibiotics were broadened, to include cefepime, linezolid, and Flagyl, and despite this, there was no clinical improvement in his condition. All blood cultures remained negative throughout this hospital course. 2. Metabolic alkalosis with respiratory acidosis. Patient had abnormal serum electrolytes with hypernatremia sodium 147, Hypokalemia potassium 3.2, alkalosis carbon dioxide greater than 45, volume depletion with BUN of 68, and creatinine 1.8. His anion gap was 16. His blood gas showed a pH of 7.54 with pCO2 58 and bicarbonate of 49. He was able to oxygenate and did not need intubation. He received aggressive IV free water and water per NG tube and, despite this, had continued hypernatremia and worsening renal function. 3. Anhrx-kv-qkzermd kidney disease. Patient's admitting BUN and creatinine were 60 and 1.8, which worsened to 93/2.3, 118/3.1, 148/4.3, then 147/4.7. At this point, the requested that aggressive medical management be discontinued. He was seen by Palliative Care and transitioned to being accepted by Hospice Service. 4. Diabetes mellitus. Patient required free water replacement, using D5W. Therefore, his blood sugars were covered with subcutaneous insulin while here. 5. Encephalopathy, metabolic. Patient previously had altered mental status, felt to be from metabolic encephalopathy, when he had a systemic infection, and this was similar on this admission. He also had underlying Lewy body dementia. 6. Comfort measures only. Eventually, the patient's NG tube, IV hydration, IV antibiotics, and insulin management were discontinued, and he was transitioned to comfort care. He was discharged on 04/13/2018, to his own house with Hospice Care for end of life management. CONDITION AT DISCHARGE: Critical. MEDICATIONS AT DISCHARGE: Comfort measures only. Time required to complete an entire discharge, orders, dictation: 30 minutes. cc: Aden Sam MD TD: 04/27/2018 12:02 MTDD
== END 2018-04-13 13:45 | disposition home or self-care (01) | DRG 871 ==
LOC: ED 10:27 → ICU 18:30
PROVIDERS: ADMIT Internal Medicine; ATTEND Internal Medicine
DX: R40.0 Somnolence (principal); A41.9 Sepsis, unspecified organism; L03.115 Cellulitis of right lower limb; I11.0 Hypertensive heart disease with heart failure; I50.30 Unspecified diastolic (congestive) heart failure; R65.21 Severe sepsis with septic shock; G47.30 Sleep apnea, unspecified; G93.41 Metabolic encephalopathy; F02.80 Dementia in other diseases classified elsewhere, unspecified severity, without behavioral disturbance, psychotic disturbance, mood disturbance, and anxiety; E11.9 Type 2 diabetes mellitus without complications; E66.9 Obesity, unspecified; N17.9 Acute kidney failure, unspecified; E87.4 Mixed disorder of acid-base balance; E87.0 Hyperosmolality and hypernatremia; I13.0 Hypertensive heart and chronic kidney disease with heart failure and stage 1 through stage 4 chronic kidney disease, or unspecified chronic kidney disease; F02.81 Dementia in other diseases classified elsewhere, unspecified severity, with behavioral disturbance; L03.119 Cellulitis of unspecified part of limb; K52.1 Toxic gastroenteritis and colitis; T47.3X5A Adverse effect of saline and osmotic laxatives, initial encounter; E86.9 Volume depletion, unspecified; K72.90 Hepatic failure, unspecified without coma; E11.22 Type 2 diabetes mellitus with diabetic chronic kidney disease; N18.3 Chronic kidney disease, stage 3 (moderate); I50.9 Heart failure, unspecified; E87.6 Hypokalemia; E66.01 Morbid (severe) obesity due to excess calories; G47.33 Obstructive sleep apnea (adult) (pediatric); J44.9 Chronic obstructive pulmonary disease, unspecified; G31.83 Neurocognitive disorder with Lewy bodies; I25.10 Atherosclerotic heart disease of native coronary artery without angina pectoris; N40.1 Benign prostatic hyperplasia with lower urinary tract symptoms; N39.498 Other specified urinary incontinence; F32.9 Major depressive disorder, single episode, unspecified; F41.9 Anxiety disorder, unspecified; I87.8 Other specified disorders of veins; Z51.5 Encounter for palliative care; Z66 Do not resuscitate; Z68.39 Body mass index [BMI] 39.0-39.9, adult; Z79.4 Long term (current) use of insulin; Z87.01 Personal history of pneumonia (recurrent); Z79.82 Long term (current) use of aspirin; Z79.899 Other long term (current) drug therapy; Z74.01 Bed confinement status
CPT/HCPCS: 36415; 36600; 51702; 70450; 71045; 74150; 76770; 80053; 80202; 81001; 81003; 82140; 82803; 83605; 83690; 83735; 85025; 87040; 87086; 87150; 94640; 96361; 96374; 96375; 99233; 99284; 99285

== ENCOUNTER 2018-04-13 13:50 | Outpatient (CLI) | payer MEDICARE, OTHER | END 2018-04-13 13:51 | disposition hospice, home (50) | LOC: EMS 13:50 | PROVIDERS: ATTEND Surgery | DX: N19 Unspecified kidney failure (principal) | CPT/HCPCS: A0425; A0428 ==